=== PATIENT | male | born 1975 | race Caucasian/White ===

== ENCOUNTER 2017-06-06 14:20 | Inpatient (IN) | payer OTHER ==
--- NOTE | 2017-06-06 14:58 | ED Physician Documentation ---
PD HPI ABD PAIN - Stated complaint Stated Complaint: ABD PX - Chief complaint Chief Complaint: Abd Pain - History obtained from History obtained from: Patient, Family - History of Present Illness Timing - onset: Yesterday Timing - duration: Days (1) Timing - details: Gradual onset, Still present Quality: Sharp, Pain Location: Epigastric, Suprapubic Radiation: Chest Improved by: Laying still Worsened by: Moving, Breathing, Position, Palpation Associated symptoms: No: Fever, Nausea, Vomiting, Diarrhea, Constipation Similar symptoms before: Has not had sx before Recently seen: Not recently seen - Additional information Additional information: 42-year-old male began to have some suprapubic pain yesterday morning. Pain persisted all day and he took some Aleve with some relief of the pain. About midnight he had return of the pain which was severe and radiated up to his epigastrium. He states this happened in an episode where he had the lower pain he took the Aleve and then developed this change in the pain from the suprapubic area to the epigastric area. The pain is worse with any movement with breathing and with palpation. He has not eaten today and last ate yesterday evening . Review of Systems Constitutional: reports: Chills. denies: Fever Eyes: denies: Decreased vision Ears: denies: Ear pain Nose: denies: Congestion Throat: denies: Sore throat Cardiac: denies: Chest pain / pressure, Palpitations Respiratory: denies: Dyspnea, Cough GI: reports: Abdominal Pain. denies: Nausea, Vomiting, Constipation, Diarrhea : denies: Dysuria, Frequency Skin: denies: Rash, Lesions Musculoskeletal: denies: Neck pain, Back pain, Extremity pain Neurologic: denies: Generalized weakness, Focal weakness, Numbness PD PAST MEDICAL HISTORY - Past Medical History Past Medical History: No - Past Surgical History Past Surgical History: No - Allergies Allergies/Adverse Reactions: Allergies Allergy/AdvReac Type Severity Reaction Status Date / Time No Known Drug Allergies Allergy Verified 06/06/17 14:31 - Social History Does the pt smoke?: No Smoking Status: Never smoker PD ED PE NORMAL - Vitals Vital signs reviewed: Yes (Tachycardic tachypneic and hypertensive.) - General General: Alert and oriented X 3, Well developed/nourished, Other (The patient is grunting in pain and appears to be in pain with each breath. He is hyperventilating and moves slowly.) - HEENT HEENT: Atraumatic, PERRL, EOMI - Neck Neck: Supple, no meningeal sign - Cardiac Cardiac: No murmur, Other (tachy to 110) - Respiratory Respiratory: Clear bilaterally, Other (tachypneic at rest) - Abdomen Abdomen: Other (The abdomen is not firm. There is general tenderness to palpation and most epigastric and suprapubic. ) - Back Back: No CVA TTP, No spinal TTP - Derm Derm: Normal color, Warm and dry, No rash - Extremities Extremities: No deformity, No edema - Neuro Neuro: No motor deficit, No sensory deficit Eye Opening: Spontaneous Motor: Obeys Commands Verbal: Oriented GCS Score: 15 - Psych Psych: Normal mood, Normal affect Results - Vitals Vitals: Vital Signs - 24 hr 06/06/17 14:28 Temperature 36.6 C Heart Rate 116 H Respiratory 22 Rate Blood Pressure 155/108 H O2 Saturation 98 Oxygen O2 Source Room air - Labs Labs: Laboratory Tests 06/06/17 06/06/17 14:50 14:50 WBC 10.4 RBC 5.45 Hgb 15.6 Hct 46.9 MCV 86.0 MCH 28.6 MCHC 33.3 RDW 14.5 Plt Count 261 MPV 7.9 Neut # Not Reportable Lymph # Not Reportable Hoke # Not Reportable Eos # Not Reportable Baso # Not Reportable Absolute Nucleated RBC Not Reportable Total Counted 100 Band Neuts % (Manual) 19 H Abnorm Lymph % (Manual) 0 Nucleated RBC % Not Reportable Neutrophils # (Manual) 9.6 H Lymphocytes # (Manual) 0.7 L Monocytes # (Manual) 0.1 Eosinophils # (Manual) 0.0 Basophils # (Manual) 0.0 Differential Comment MANUAL DIFFERENTIAL Manual Slide Review Indicated Platelet Estimate NORMAL (130-450,000) Platelet Morphology NORMAL APPEARANCE RBC Morph Micro Appear NORMAL APPEARANCE Sodium 139 Potassium 3.8 Chloride 101 Carbon Dioxide 27 Anion Gap 11.0 BUN 15 Creatinine 0.9 Estimated GFR (MDRD) 92 Glucose 128 H Calcium 9.3 Total Bilirubin 1.3 H AST 27 ALT 18 Alkaline Phosphatase 47 Total Protein 8.2 Albumin 4.8 Globulin 3.4 Albumin/Globulin Ratio 1.4 Lipase 26 - Rads (name of study) CT ab/pel with Radiology: Prelim report reviewed (Impression: 1. Acute inflammation of the sigmoid colon consistent with acute diabetic colitis. Small free fluid in pelvis. No drainable abscess. 2.No bowel obstruction. 3. Tiny liver and renal hypodensities which are probably cyst.), EMP read indepedently, See rad report Procedures - Bedside sono Bedside sono by EMP: with the bedside ultrasound the morrisons pouch is evaluated and has the appearance of air between the kidney and liver. PD MEDICAL DECISION MAKING - ED course Complexity details: reviewed old records, reviewed results, re-evaluated patient , considered differential, d/w patient, d/w family ED course: 42-year-old male presents to the emergency department with acute abdominal pain. He appears to be in distress with this pain with grunting with any movement and with breathing. He arrives tachypneic tachycardic and hypertensive. He has improvement in his pain with use of intravenous Dilaudid and Zofran and he is given some fluid as well. His CT scan shows what appears to be acute diverticulitis with some free fluid in the pelvis. There is not a drainable abscess on today's exam. WBC is 10.4 with 19% bands. I recommended the patient stay in the hospital. IV cipro and flagyl are started. Departure - Departure Disposition: 66 [facility] DC/Xfmartha Clinical Impression: Diverticulitis of gastrointestinal tract
[2017-06-06 15:14] LABS: BASOPHILS % (AUTO) 0.3 %; HGB - HEMOGLOBIN 15.6 g/dL (14.0-18.0); MEAN CORPUSCULAR HEMOGLOBIN 28.6 pg (27.0-31.0); MEAN CORPUSCULAR HGB CONC 33.3 g/dL (32.0-36.0); MEAN PLATELET VOLUME 7.9 fL (7.4-11.4); MONOCYTES % (AUTO) 3.9 %; NEUTROPHILS % (AUTO) 91.8 %; PLT - PLATELET COUNT 261 10^3/uL (130-450); RED BLOOD COUNT 5.45 10^6/uL (4.70-6.10); RED CELL DISTRIBUTION WIDTH 14.5 % (12.0-15.0); WHITE BLOOD COUNT 10.4 x10^3/uL (4.8-10.8)
[2017-06-06 15:15] LABS: ABNORMAL LYMPHS % (MANUAL) 0 %
[2017-06-06] MEDS ORDERED: ONDANSETRON 4 MG/2 ML VIAL IVP STA (15:16)
[2017-06-06] MEDS ORDERED: HYDROmorphone 1 MG/ML SYRINGE IVP STA (15:16)
[2017-06-06] MEDS ORDERED: SODIUM CHLORIDE 0.9% 1,000 ML IV ONE (15:16)
[2017-06-06 15:19] LABS: ALBUMIN 4.8 g/dL (3.2-5.5); ALBUMIN/GLOBULIN RATIO 1.4 (1.0-2.2); BILIRUBIN,TOTAL 1.3 mg/dL (0.2-1.0); CALCIUM 9.3 mg/dL (8.5-10.3); CREATININE 0.9 mg/dL (0.6-1.2); TOTAL PROTEIN 8.2 g/dL (6.7-8.2)
[2017-06-06 15:33] LABS: BAND NEUTROPHILS % (MANUAL) 19 %; DIFFERENTIAL COMMENT MANUAL DIFFERENTIAL; LYMPHOCYTES # (MANUAL) 0.7 10^3/uL (1.5-3.5); LYMPHOCYTES % (MANUAL) 7 %; MONOCYTES # (MANUAL) 0.1 10^3/uL (0.0-1.0); NEUTROPHILS # (MANUAL) 9.6 10^3/uL (1.5-6.6); NEUTROPHILS % (MANUAL) 73 %; PLATELET ESTIMATE, MANUAL NORMAL (130-450,000) (NORMAL); PLATELET MORPHOLOGY NORMAL APPEARANCE (NORMAL); RBC MORPHOLOGY (MULTIPLE) NORMAL APPEARANCE (NORMAL)
[2017-06-06] MEDS ORDERED: IOPAMIDOL-300 100 ML VIAL ONE (15:47)
[2017-06-06] MEDS ORDERED: IOPAMIDOL-300 100 ML VIAL IVP ONE (16:08)
--- NOTE | 2017-06-06 16:26 | CT Report ---
EXAM: CT ABDOMEN AND PELVIS EXAM DATE: 06/06/2017 04:08 PM. CLINICAL HISTORY: Pelvic pain followed by epigastric pain . COMPARISONS: None. TECHNIQUE: Routine helical CT imaging was performed through the abdomen and pelvis. IV contrast: 100M L OF ISOVUE 300. Enteric contrast: No. Reconstructions: Coronal and sagittal. In accordance with CT protocol optimization, one or more of the following dose reduction techniques w ere utilized for this exam: automated exposure control, adjustment of mA and/or KV based on patient s ize, or use of iterative reconstructive technique. FINDINGS: Lung Bases: Unremarkable. Liver: There is a 0.7 cm low-density lesion in segment 4 of the liver which is too small to character ize. Liver vessels are patent. Gallbladder/Bile Ducts: Unremarkable. Spleen: Normal. Pancreas: Normal. Adrenal Glands: Normal. Kidneys: There is a 0.6 cm low-density lesion in the left kidney which is too small to characterize b ut most likely a cyst. Peritoneal Cavity/Bowel: There is a focal inflammatory process in the central pelvis around the sigmo id colon. There are multiple diverticula. There is a significant degree of fat stranding. There is a very small amount of fluid. There is no free air. No bowel obstruction. Pelvic Organs: Urinary bladder is empty. Vasculature: No aneurysms or other significant abnormality. Bones: There is degenerative disease of the lumbar spine. Other: None. IMPRESSION: 1. Acute inflammation of sigmoid colon consistent with acute diverticulitis. Small free fluid in pelv is. No drainable abscess. 2. No bowel obstruction. 3. Tiny liver and renal hypodensities which are probably cysts. [facility] Referring Provider Line: [phone] SITE ID: [id number]
[2017-06-06 16:49] LABS: BILIRUBIN,URINE NEGATIVE (NEGATIVE); GLUCOSE, URINE (UA) NEGATIVE (NEGATIVE); KETONES,URINE (UA) 15 mg/dL (NEGATIVE); LEUKOCYTE ESTERASE, URINE NEGATIVE (NEGATIVE); NITRITE,URINE NEGATIVE (NEGATIVE); OCCULT BLOOD,URINE MODERATE (NEGATIVE); PROTEIN,URINE 100 mg/dL (NEGATIVE); UROBILINOGEN,URINE 0.2 (NORMAL) E.U./dL (NORMAL)
[2017-06-06] MEDS ORDERED: CIPROFLOXACIN 400 MG/200 ML 200 ML IV ONE (16:50)
[2017-06-06] MEDS ORDERED: metroNIDAZOLE 500 MG/100 ML 500 MG/100 ML BAG IV ONE (16:50)
[2017-06-06 16:51] LABS: CLARITY,URINE CLEAR (CLEAR)
[2017-06-06] MEDS ORDERED: cefTRIAXone 1 GM in SODIUM CHLORIDE 0.9% MINIBAG 100 ML IV STA (16:55)
[2017-06-06 16:57] LABS: BACTERIA,URINE None Seen /HPF (None Seen); RBC,URINE 0-5 /HPF (0-5); SQUAMOUS EPITHELIAL CELL,UR NONE SEEN (<= Few)
[2017-06-06 16:58] LABS: CASTS, URINE 0-2 Fine Granular /LPF; MUCUS,URINE Marked Strands
[2017-06-06] MEDS ORDERED: ONDANSETRON 4 MG/2 ML VIAL IVP PRN (17:06)
[2017-06-06] MEDS ORDERED: PROCHLORPERAZINE 10 MG/2 ML VIAL IVP PRN (17:06)
[2017-06-06] MEDS ORDERED: PROMETHAZINE 25 MG/1 ML VIAL IM PRN (17:06)
[2017-06-06] MEDS ORDERED: HYDROmorphone 1 MG/ML SYRINGE IVP PRN (17:06)
--- NOTE | 2017-06-06 18:12 | HISTORY & PHYSICAL EXAMINATION ---
Chief Complaint - Chief Complaint Chief Complaint: Abdominal pain History of Present Illness - Admitted From Admitted From:: Emergency department - History Obtained From Records Reviewed: Yes History obtained from: Patient Exam Limitations: None - History of Present Illness HPI Comment/Other: Patient is a 42-year-old gentleman with a past medical history significant for obesity who presented to the emergency department with a chief complaint of abdominal pain. The patient states that he was in his normal state of health until just 2 days ago when he states he felt a little off. He attributed this feeling to having had a strenuous workout the day prior. He states that he did about 60 minutes on the treadmill. The next day he states he just felt sore specifically in his abdominal cord. He states that he woke up yesterday morning and then began having sharp pain in his lower pelvis. He states that the pain was severe, 8-9 out of 10. He states that it persisted into the afternoon and he took 3 Aleve. He states he did not eat any food with the Aleve and just drank water. After this he states that the pain did improve slightly. Later that evening he tried to sleep but had a very difficult time as he could just not get comfortable because of the pain. States when he got up this morning the pain spread from the lower pelvic area up into the epigastric area. He states the pain was still sharp but it felt as though his abdomen was being squeezed in a vice. He states he tried to change positions live on his back and lie on his front and even lean on the bed to try to alleviate the pain but the pain just would not go away. He states that the pain became a 10 out of 10 and he finally decided to go to the emergency department. The patient denies any nausea or vomiting. He denies having had any fevers chills or night sweats. He does admit to loose stools however he states that he is on a stool softener for edema and has had loose stools for some time. Patient denies any headaches, blurred vision, runny nose, sore throat, nasal congestion, difficulty swallowing, neck pain, neck stiffness, chest pain, shortness of air, orthopnea, PND, increased lower extremity swelling, urinary urgency, urinary frequency, dysuria, joint pains, joint stiffness, joint swelling, muscle aches, back pain, recent unintentional weight loss, changes in his appetite or any focal neurologic deficits. On presentation to the emergency department the patient was afebrile he was tachycardic and hypertensive. He was also slightly tachypneic with respiratory rate of 22 but was saturating well on room air. On presentation he appeared to be in significant distress as he was in a great deal of pain. The patient states that even on the ambulance ride over with any bumps in the road or shaking of his gurney he felt his pain would become more severe. The patient's initial lab work revealed a mildly elevated glucose of 128 and a mildly elevated total bilirubin of 1.3 but otherwise all his electrolytes and LFTs were within normal limits. The patient had a normal lipase and a normal lactic acid. The patient's CBC revealed a WBC of 10.4 with a bandemia of 19%. Given the patient's severe abdominal pain the emergency room physician ordered a CT of his abdomen and pelvis which showed acute inflammation of the sigmoid colon consistent with acute diverticulitis. With small free fluid in the pelvis but no drainable abscess. The patient also was found to have tiny liver and renal hypodensities which looked most likely like cysts. Given the severity of the patient's pain and bandemia with his tachycardia and the fact that the patient just did not look well he was admitted to the hospital for acute diverticulitis. In the emergency room the patient did receive 1 g of IV ceftriaxone, 500 mg of Flagyl, 4 mg of IV Zofran and 1 mg of IV Dilaudid. History - Past Medical History Cardiovascular: reports: None Respiratory: reports: None Neuro: reports: None Endocrine/Autoimmune: reports: None GI: reports: None : reports: None HEENT: reports: None Psych: reports: None Musculoskeletal: reports: None Derm: reports: None Other Past Medical History: Obesity - Family & Social History Family History: Mother: , Cancer (Mother of colon cancer), Father: Alive and Well, Other family: CAD (Grandmother) Living arrangement: At home Living Situation: Alone Social History Notes: The patient was born in [place], [place] but moved with his family to [place] when he was 6 years old and lived there until he was 30 when he joined the [employer]. He now lives in [place] alone. He is unmarried and has no children he still works at the [employer]. He has never smoked, he is a daily drinker and drinks 2 drinks a night of October. He denies any illicit drug use. - POLST POLST Status: Full Code Meds/Allgy - Allergies Allergies/Adverse Reactions: Allergies Allergy/AdvReac Type Severity Reaction Status Date / Time No Known Drug Allergies Allergy Verified 06/06/17 14:31 Review of Systems - Other Findings Other Findings: A comprehensive review of systems was performed the pertinent positives and negatives are stated above in the HPI and the remainder of the review of systems is negative. Exam - Vital Signs Reviewed Vital Signs: Yes Vital Signs: Vital Signs x48h Temp Pulse Resp BP Pulse Ox 06/06/17 14:28 36.6 C 116 H 22 155/108 H 98 - Physical Exam General Appearance: positive: Alert, Moderate distress (Patient grimacing with pain), Anxious (Appears anxious), Other (Obese) Eyes Bilateral: positive: Normal inspection, PERRL, EOMI, No lid inflammation, Conjunctivae nml, No scleral icterus ENT: positive: ENT inspection nml, Pharynx nml, Dry mucous membranes. negative : Purulent nasal drainage, Pharyngeal erythema, Oral lesions Neck: positive: Nml inspection, Thyroid nml, No JVD, Trachea midline. negative : Thyromegaly, Lymphadenopathy (R), Lymphadenopathy (L), Carotid bruit, Tracheal deviation Respiratory: positive: Chest non-tender, No respiratory distress, Breath sounds nml. negative: Wheezes, Rales, Rhonchi Cardiovascular: positive: No murmur, No gallop, Tachycardia Peripheral Pulses: positive: 2+ Abdomen: positive: Nml bowel sounds, No distention, Tenderness (Diffuse), Other. negative: Guarding, Rebound, Hepatomegaly Back: positive: Nml inspection. negative: CVA tenderness (R), CVA tenderness (L ) Skin: positive: Color nml, No rash, Warm. negative: Cyanosis, Diaphoresis, Pallor Extremities: positive: Non-tender, Full ROM, Nml appearance, No pedal edema Neurologic/Psychiatric: positive: Oriented x3, CN's nml (2-12), Motor nml, Sensation nml, Mood/affect nml, Other (anxious) Conclusion/Plan - Problem List (1) Sigmoid diverticulitis Conclusion/Plan: Patient presented with severe abdominal pain He was tachycardic on presentation and had bandemia on CBC of 19% The patient appeared ill on presentation and was in severe pain CT abdomen show inflammation of the sigmoid colon consistent with acute sigmoid diverticulitis Patients exam revealed a soft belly with diffuse tenderness Patient lactate is normal If the patient spikes fever then we will need to get blood cultures. Patient will need to be monitored closely given the severity of the pain as this is concerning for peritonitis or rupture of the diverticula Plan: IV ceftriaxone and IV flagyl IVFs IV antiemetics IV dilaudid for pain (2) Hyperglycemia Conclusion/Plan: Patient's blood glucose was elevated at 128 on presentation. Patient does not have any history of diabetes We will check the patient's glucose daily and check a hemoglobin A1c (3) Elevated bilirubin Conclusion/Plan: Patient's bilirubin is slightly elevated at 1.3. Rest of his electrolytes and LFTs are all within normal limits. This could be a normal variant due to Gilbert's disease. We will continue to monitor patient's LFTs daily (4) Hematuria Conclusion/Plan: Patient did have hematuria on his UA as he had positive occult blood in his urine but his RBCs were minimal at 0-5. Given the patient's recent strenuous exercise this could suggest the possibility of rhabdomyolysis. We will check a CK level Monitor hematuria. (5) Abnormal CT of the abdomen Conclusion/Plan: Patient has hypodensities of the liver and kidney on CT. These are incidental findings and radiologist believes they may be from cysts. At this time there is no need for follow-up of these incidental findings. - Lab Results Lab results reviewed: Yes Fish Bones: 06/06/17 14:50 06/06/17 14:50 Other Lab Results: Laboratory Results WBC 10.4 x10^3/uL (4.8-10.8) 06/06/17 14:50 RBC 5.45 10^6/uL (4.70-6.10) 06/06/17 14:50 Hgb 15.6 g/dL (14.0-18.0) 06/06/17 14:50 Hct 46.9 % (42.0-52.0) 06/06/17 14:50 MCV 86.0 fL (80.0-94.0) 06/06/17 14:50 MCH 28.6 pg (27.0-31.0) 06/06/17 14:50 MCHC 33.3 g/dL (32.0-36.0) 06/06/17 14:50 RDW 14.5 % (12.0-15.0) 06/06/17 14:50 Plt Count 261 10^3/uL (130-450) 06/06/17 14:50 MPV 7.9 fL (7.4-11.4) 06/06/17 14:50 Neut # Not Reportable 06/06/17 14:50 Lymph # Not Reportable 06/06/17 14:50 Sandoval # Not Reportable 06/06/17 14:50 Eos # Not Reportable 06/06/17 14:50 Baso # Not Reportable 06/06/17 14:50 Absolute Nucleated RBC Not Reportable 06/06/17 14:50 Total Counted 100 06/06/17 14:50 Band Neuts % (Manual) 19 % (0-10) H 06/06/17 14:50 Abnorm Lymph % (Manual) 0 % 06/06/17 14:50 Nucleated RBC % Not Reportable 06/06/17 14:50 Neutrophils # (Manual) 9.6 10^3/uL (1.5-6.6) H 06/06/17 14:50 Lymphocytes # (Manual) 0.7 10^3/uL (1.5-3.5) L 06/06/17 14:50 Monocytes # (Manual) 0.1 10^3/uL (0.0-1.0) 06/06/17 14:50 Eosinophils # (Manual) 0.0 10^3/uL (0-0.7) 06/06/17 14:50 Basophils # (Manual) 0.0 10^3/uL (0-0.1) 06/06/17 14:50 Differential Comment MANUAL DIFFERENTIAL 06/06/17 14:50 Manual Slide Review Indicated 06/06/17 14:50 Platelet Estimate NORMAL (130-450,000) (NORMAL) 06/06/17 14:50 Platelet Morphology NORMAL APPEARANCE (NORMAL) 06/06/17 14:50 RBC Morph Micro Appear NORMAL APPEARANCE (NORMAL) 06/06/17 14:50 Sodium 139 mmol/L (135-145) 06/06/17 14:50 Potassium 3.8 mmol/L (3.5-5.0) 06/06/17 14:50 Chloride 101 mmol/L (101-111) 06/06/17 14:50 Carbon Dioxide 27 mmol/L (21-32) 06/06/17 14:50 Anion Gap 11.0 (6-13) 06/06/17 14:50 BUN 15 mg/dL (6-20) 06/06/17 14:50 Creatinine 0.9 mg/dL (0.6-1.2) 06/06/17 14:50 Estimated GFR (MDRD) 92 (>89) 06/06/17 14:50 Glucose 128 mg/dL (70-100) H 06/06/17 14:50 Lactic Acid 0.8 mmol/L (0.5-2.2) 06/06/17 17:17 Calcium 9.3 mg/dL (8.5-10.3) 06/06/17 14:50 Total Bilirubin 1.3 mg/dL (0.2-1.0) H 06/06/17 14:50 AST 27 IU/L (10-42) 06/06/17 14:50 ALT 18 IU/L (10-60) 06/06/17 14:50 Alkaline Phosphatase 47 IU/L (42-121) 06/06/17 14:50 Total Protein 8.2 g/dL (6.7-8.2) 06/06/17 14:50 Albumin 4.8 g/dL (3.2-5.5) 06/06/17 14:50 Globulin 3.4 g/dL (2.1-4.2) 06/06/17 14:50 Albumin/Globulin Ratio 1.4 (1.0-2.2) 06/06/17 14:50 Lipase 26 U/L (22-51) 06/06/17 14:50 Urine Color YELLOW 06/06/17 16:33 Urine Clarity CLEAR (CLEAR) 06/06/17 16:33 Urine pH 6.0 PH (5.0-7.5) 06/06/17 16:33 Ur Specific [place] 1.020 (1.002-1.030) 06/06/17 16:33 Urine Protein 100 mg/dL (NEGATIVE) H 06/06/17 16:33 Urine Glucose (UA) NEGATIVE mg/dL (NEGATIVE) 06/06/17 16:33 Urine Ketones 15 mg/dL (NEGATIVE) H 06/06/17 16:33 Urine Occult Blood MODERATE (NEGATIVE) H 06/06/17 16:33 Urine Nitrite NEGATIVE (NEGATIVE) 06/06/17 16:33 Urine Bilirubin NEGATIVE (NEGATIVE) 06/06/17 16:33 Urine Urobilinogen 0.2 (NORMAL) E.U./dL (NORMAL) 06/06/17 16:33 Ur Leukocyte Esterase NEGATIVE (NEGATIVE) 06/06/17 16:33 Urine RBC 0-5 /HPF (0-5) 06/06/17 16:33 Urine WBC 0-3 /HPF (0-3) 06/06/17 16:33 Ur Squamous Epith Cells NONE SEEN (<= Few) 06/06/17 16:33 Urine Bacteria None Seen /HPF (None Seen) 06/06/17 16:33 Urine Casts 0-2 Fine Granular /LPF 06/06/17 16:33 Urine Mucus Marked Strands 06/06/17 16:33 Ur Microscopic Review INDICATED 06/06/17 16:33 Urine Culture Comments NOT INDICATED 06/06/17 16:33 - Diagnostic Imaging Results Diagnostic Imaging Results: positive: Final report reviewed Diagnostic Imaging Results Comments: CT abdomen pelvis Impression: 1. Acute inflammation of the sigmoid colon consistent with acute diverticulitis. Small free fluid in the pelvis. No drainable abscess. 2. No bowel obstruction 3. Tiny liver and renal hypodensities which are probably cysts. Core Measures - Anticipated LOS I expect patient to be DC'd or transferred within 96 hours.: Yes - DVT/VTE - Prophylaxis VTE/DVT Device ordered at admit?: Yes
[2017-06-06] MEDS: SODIUM CHLORIDE 0.9% 1,000 ML IV SCH (19:36)
[2017-06-06] MEDS: oxyCODONE 5 MG TABLET PO PRN ×2 (19:37→21:27)
[2017-06-06] MEDS: FAMOTIDINE 20 MG/50 ML 50 ML IV SCH (21:27)
[2017-06-06] MEDS: SODIUM CHLORIDE FLUSH 0.9% 10 ML SYRINGE IVP SCH (21:27)
[2017-06-06] MEDS: metroNIDAZOLE 500 MG/100 ML 500 MG/100 ML BAG IV SCH (23:41)
[2017-06-06] MEDS: ACETAMINOPHEN 325 MG TABLET PO PRN (23:50)
[2017-06-07] MEDS: oxyCODONE 5 MG TABLET PO PRN ×4 (01:42→15:57)
[2017-06-07] MEDS: SODIUM CHLORIDE 0.9% 1,000 ML IV SCH ×2 (03:31→12:22)
[2017-06-07 05:38] LABS: BASOPHILS % (AUTO) 0.3 %; EOSINOPHILS # (AUTO) 0.1 10^3/uL (0.0-0.7); EOSINOPHILS % (AUTO) 0.8 %; HGB - HEMOGLOBIN 13.1 g/dL (14.0-18.0); LYMPHOCYTES # (AUTO) 0.9 10^3/uL (1.5-3.5); LYMPHOCYTES % (AUTO) 8.7 %; MEAN CORPUSCULAR HGB CONC 33.3 g/dL (32.0-36.0); MEAN CORPUSCULAR VOLUME 87.1 fL (80.0-94.0); MEAN PLATELET VOLUME 7.5 fL (7.4-11.4); MONOCYTES # (AUTO) 0.6 10^3/uL (0.0-1.0); MONOCYTES % (AUTO) 6.5 %; NEUTROPHILS # (AUTO) 8.2 10^3/uL (1.5-6.6); NEUTROPHILS % (AUTO) 83.7 %; PLT - PLATELET COUNT 203 10^3/uL (130-450); RED BLOOD COUNT 4.52 10^6/uL (4.70-6.10); RED CELL DISTRIBUTION WIDTH 14.6 % (12.0-15.0); WHITE BLOOD COUNT 9.8 x10^3/uL (4.8-10.8)
[2017-06-07 05:45] LABS: ALBUMIN 3.4 g/dL (3.2-5.5); ALBUMIN/GLOBULIN RATIO 1.2 (1.0-2.2); BILIRUBIN,TOTAL 1.1 mg/dL (0.2-1.0); CALCIUM 7.8 mg/dL (8.5-10.3); CREATININE 0.8 mg/dL (0.6-1.2); INR 1.5 (0.8-1.2); MAGNESIUM 1.7 mg/dL (1.7-2.8); PHOSPHORUS 2.9 mg/dL (2.5-4.6); PT - PROTHROMBIN TIME 16.2 secs (9.9-12.6); TOTAL PROTEIN 6.3 g/dL (6.7-8.2)
[2017-06-07] MEDS: metroNIDAZOLE 500 MG/100 ML 500 MG/100 ML BAG IV SCH ×4 (05:56→23:51)
[2017-06-07] MEDS: SODIUM CHLORIDE FLUSH 0.9% 10 ML SYRINGE IVP SCH ×3 (07:02→20:17)
[2017-06-07 07:28] LABS: HB2 TOTAL 13.9 g/dL; HEMOGLOBIN A1C 0.43 g/dL
[2017-06-07] MEDS: POLYETHYLENE GLYCOL 3350 17 GM PACKET PO SCH (08:23)
[2017-06-07] MEDS: FAMOTIDINE 20 MG/50 ML 50 ML IV SCH (08:24)
--- NOTE | 2017-06-07 09:24 | PROVIDER PROGRESS NOTE ---
Assessment/Plan - Problem List (1) Sigmoid diverticulitis Assessment/Plan: Patient presented with severe abdominal pain He was tachycardic on presentation and had bandemia on CBC of 19% The patient appeared ill on presentation and was in severe pain CT abdomen show inflammation of the sigmoid colon consistent with acute sigmoid diverticulitis Patients exam revealed a soft belly with diffuse tenderness Patient did spike a fever last night up to 39.4 Afebrile this am and pain is improved but still has abdominal pain No nausea or vomiting Improved WBC this am Continue IV ceftriaxone and IV flagyl day 2 Stop IVF as patient is eating and drinking ok and HR is improved VSS IV dilaudid and PO exycodone for pain (2) Hyperglycemia Conclusion/Plan: Patient's blood glucose was elevated at 128 on presentation. Patient does not have any history of diabetes BG 115 this am A1C is pending LIkely increased due to acute infection (3) Elevated bilirubin Conclusion/Plan: Improved to 1.1 (4) Hematuria Conclusion/Plan: CK normal Blood but no RBCs in urine CT showed possible kidney cysts (5) Abnormal CT of the abdomen Conclusion/Plan: Patient has hypodensities of the liver and kidney on CT. These are incidental findings and radiologist believes they may be from cysts. At this time there is no need for follow-up of these incidental findings. - Current Meds Current Meds: Current Medications Generic Name Dose Route Start Last Admin Trade Name Freq PRN Reason Stop Dose Admin Acetaminophen 650 mg 06/06/17 17:06 06/06/17 23:50 Tylenol PO 650 mg Q4HR PRN Administration Pain 1 to 4 Hydromorphone HCl 0.5 mg 06/06/17 17:06 06/06/17 18:48 Dilaudid Inj Syringe IVP 0.5 mg Q2H PRN Administration Pain 8 to 10 Famotidine 50 mls @ 100 mls/hr 06/06/17 21:00 06/07/17 09:00 Pepcid 20 Mg/50 Ml IV Infused BID CRUZ Infusion Metronidazole 500 mg in 100 mls @ 100 mls/hr 06/07/17 00:00 06/07/17 07:01 Flagyl 500 Mg/100 Ml IV Infused Q6HR [facility] Infusion Sodium Chloride 1,000 mls @ 150 mls/hr 06/06/17 18:00 06/07/17 07:01 Normal Saline 0.9% IV 150 mls/hr .Q6H40M CRUZ Infusion Oxycodone HCl 5 mg 06/06/17 17:06 06/06/17 21:27 Roxicodone PO 5 mg Q4HR PRN Administration Pain 5 to 7 Oxycodone HCl 10 mg 06/06/17 17:06 06/07/17 05:54 Roxicodone PO 10 mg Q4HR PRN Administration Pain 8 to 10 Polyethylene Glycol 17 gm 06/07/17 09:00 06/07/17 08:23 Miralax PO 17 gm DAILY CRUZ Administration Sodium Chloride 10 ml 06/06/17 22:00 06/07/17 07:02 Normal Saline Flush 0.9% IVP Not Given Q8HR CRUZ - Lab Result Lab results reviewed: Yes Fish Bone Diagrams: 06/07/17 05:25 06/07/17 05:25 - Diagnostic Imaging Results Diagnostic Imaging Results: Final report reviewed - Additional Planning Condition/Complexity: Guarded My Orders: My Active Orders 06/06/17 17:06 Acetaminophen [Tylenol] 650 mg PO Q4HR PRN HYDROmorphone INJ SYRINGE [Dilaudid Inj Syringe] 0.5 mg IVP Q2H PRN Ondansetron Inj [Zofran Inj] 4 mg IVP Q6HR PRN Prochlorperazine Inj [Compazine Inj] 10 mg IVP Q6HR PRN Promethazine Inj [Phenergan Inj] 25 mg IM Q6HR PRN oxyCODONE [Roxicodone] 10 mg PO Q4HR PRN oxyCODONE [Roxicodone] 5 mg PO Q4HR PRN 06/06/17 17:09 SCDs [RC] QSHIFT 06/06/17 18:00 Sodium Chloride 0.9% [Normal Saline 0.9%] 1,000 ml IV 150 mls/hr 06/06/17 21:00 Famotidine 20 mg/50 ml [Pepcid 20 mg/50 ml] 50 ml IV BID 06/07/17 00:00 metroNIDAZOLE 500 MG/100 ML [Flagyl 500 mg/100 ml] 500 mg in 100 ml IV Q6HR 06/07/17 18:00 cefTRIAXone [Rocephin] 2 gm Sodium Chloride 0.9% Minibag [Normal Saline 0.9% Minibag] 100 ml IV Q24H 06/07/17 Breakfast Clear Liquid Diet [DIET] 06/08/17 05:00 CBC - COMP BLD CT W/AUTO DIFF [HEME] DAILYLAB COMPREHENSIVE METABOLIC PANEL [CHEM] DAILYLAB MAGNESIUM [CHEM] DAILYLAB PHOSPHORUS [CHEM] DAILYLAB 06/09/17 05:00 CBC - COMP BLD CT W/AUTO DIFF [HEME] DAILYLAB COMPREHENSIVE METABOLIC PANEL [CHEM] DAILYLAB MAGNESIUM [CHEM] DAILYLAB PHOSPHORUS [CHEM] DAILYLAB 06/10/17 05:00 CBC - COMP BLD CT W/AUTO DIFF [HEME] DAILYLAB COMPREHENSIVE METABOLIC PANEL [CHEM] DAILYLAB 06/11/17 05:00 CBC - COMP BLD CT W/AUTO DIFF [HEME] DAILYLAB COMPREHENSIVE METABOLIC PANEL [CHEM] DAILYLAB Plan Discussed with:: Patient Time Spent: 31-60 minutes Subjective - Subjective Patient Reports: Feeling Better, Abdominal Pain (Still has pain but better than yesterday), Other (Denies any nausea or vomiting, eating well. He had a fever last night but none this am.) Nursing Reports: No Complaints Objective Vital Signs: Vital Signs - 24 hr 06/06/17 06/06/17 06/07/17 19:09 23:39 07:11 Temperature 39.4 C H 37.6 C H 37.2 C Heart Rate [ 109 H 91 85 Apical] Respiratory 22 20 20 Rate Blood Pressure 124/86 H 132/81 H 104/67 [Left Brachial artery] O2 Saturation 94 95 92 Oxygen O2 Source Room air I&O (Last 24 Hrs): Intake and Output Totals x24h 06/05/17 06/06/17 06/07/17 23:59 23:59 23:59 Intake Total 1849 1916.5 Balance 1849 1916.5 General: Alert, Oriented x3, Cooperative, Other (Obese) HEENT: Atraumatic, PERRLA, EOMI, Mucous membr. moist/pink Neck: Supple, No JVD, No thyromegaly, +2 carotid pulse wo bruit, No LAD Lymphatic: no adenopathy Neuro: Alert, Non Focal, CN 2-12 Grossly Intact, Oriented Times 3 Cardiovascular: Regular rate, Normal S1, Normal S2, No murmurs Respiratory: Chest non-tender, No respiratory distress, Breath sounds nml Abdomen: Soft, Other (Tender, mostly umbilical area but also in epigastric area) Extremities: No clubbing, No cyanosis, No edema, Normal pulses Skin: No rashes, No breakdown - Results Results: Laboratory Results WBC 9.8 x10^3/uL (4.8-10.8) 06/07/17 05:25 RBC 4.52 10^6/uL (4.70-6.10) L 06/07/17 05:25 Hgb 13.1 g/dL (14.0-18.0) L 06/07/17 05:25 Hct 39.4 % (42.0-52.0) L 06/07/17 05:25 MCV 87.1 fL (80.0-94.0) 06/07/17 05:25 MCH 29.0 pg (27.0-31.0) 06/07/17 05:25 MCHC 33.3 g/dL (32.0-36.0) 06/07/17 05:25 RDW 14.6 % (12.0-15.0) 06/07/17 05:25 Plt Count 203 10^3/uL (130-450) 06/07/17 05:25 MPV 7.5 fL (7.4-11.4) 06/07/17 05:25 Neut # 8.2 10^3/uL (1.5-6.6) H 06/07/17 05:25 Lymph # 0.9 10^3/uL (1.5-3.5) L 06/07/17 05:25 [place] # 0.6 10^3/uL (0.0-1.0) 06/07/17 05:25 Eos # 0.1 10^3/uL (0.0-0.7) 06/07/17 05:25 Baso # 0.0 10^3/uL (0.0-0.1) 06/07/17 05:25 Absolute Nucleated RBC 0.00 x10^3/uL 06/07/17 05:25 Total Counted 100 06/06/17 14:50 Band Neuts % (Manual) 19 % (0-10) H 06/06/17 14:50 Abnorm Lymph % (Manual) 0 % 06/06/17 14:50 Nucleated RBC % 0.0 /100WBC 06/07/17 05:25 Neutrophils # (Manual) 9.6 10^3/uL (1.5-6.6) H 06/06/17 14:50 Lymphocytes # (Manual) 0.7 10^3/uL (1.5-3.5) L 06/06/17 14:50 Monocytes # (Manual) 0.1 10^3/uL (0.0-1.0) 06/06/17 14:50 Eosinophils # (Manual) 0.0 10^3/uL (0-0.7) 06/06/17 14:50 Basophils # (Manual) 0.0 10^3/uL (0-0.1) 06/06/17 14:50 Differential Comment MANUAL DIFFERENTIAL 06/06/17 14:50 Manual Slide Review Indicated 06/06/17 14:50 Platelet Estimate NORMAL (130-450,000) (NORMAL) 06/06/17 14:50 Platelet Morphology NORMAL APPEARANCE (NORMAL) 06/06/17 14:50 RBC Morph Micro Appear NORMAL APPEARANCE (NORMAL) 06/06/17 14:50 PT 16.2 secs (9.9-12.6) H 06/07/17 05:25 INR 1.5 (0.8-1.2) H 06/07/17 05:25 Sodium 136 mmol/L (135-145) 06/07/17 05:25 Potassium 3.8 mmol/L (3.5-5.0) 06/07/17 05:25 Chloride 104 mmol/L (101-111) 06/07/17 05:25 Carbon Dioxide 25 mmol/L (21-32) 06/07/17 05:25 Anion Gap 7.0 (6-13) 06/07/17 05:25 BUN 13 mg/dL (6-20) 06/07/17 05:25 Creatinine 0.8 mg/dL (0.6-1.2) 06/07/17 05:25 Estimated GFR (MDRD) 106 (>89) 06/07/17 05:25 Glucose 115 mg/dL (70-100) H 06/07/17 05:25 Glycated Hemoglobin 5.0 % (4.6-6.2) 06/07/17 05:25 Estim Average Glucose 97 (70-100) 06/07/17 05:25 Lactic Acid 0.7 mmol/L (0.5-2.2) 06/07/17 05:25 Calcium 7.8 mg/dL (8.5-10.3) L 06/07/17 05:25 Phosphorus 2.9 mg/dL (2.5-4.6) 06/07/17 05:25 Magnesium 1.7 mg/dL (1.7-2.8) 06/07/17 05:25 Total Bilirubin 1.1 mg/dL (0.2-1.0) H 06/07/17 05:25 AST 17 IU/L (10-42) 06/07/17 05:25 ALT 14 IU/L (10-60) 06/07/17 05:25 Alkaline Phosphatase 32 IU/L (42-121) L 06/07/17 05:25 Total Creatine Kinase 160 IU/L (22-269) 06/06/17 17:50 Total Protein 6.3 g/dL (6.7-8.2) L 06/07/17 05:25 Albumin 3.4 g/dL (3.2-5.5) 06/07/17 05:25 Globulin 2.9 g/dL (2.1-4.2) 06/07/17 05:25 Albumin/Globulin Ratio 1.2 (1.0-2.2) 06/07/17 05:25 Lipase 26 U/L (22-51) 06/06/17 14:50 Urine Color YELLOW 06/06/17 16:33 Urine Clarity CLEAR (CLEAR) 06/06/17 16:33 Urine pH 6.0 PH (5.0-7.5) 06/06/17 16:33 Ur Specific [place] 1.020 (1.002-1.030) 06/06/17 16:33 Urine Protein 100 mg/dL (NEGATIVE) H 06/06/17 16:33 Urine Glucose (UA) NEGATIVE mg/dL (NEGATIVE) 06/06/17 16:33 Urine Ketones 15 mg/dL (NEGATIVE) H 06/06/17 16:33 Urine Occult Blood MODERATE (NEGATIVE) H 06/06/17 16:33 Urine Nitrite NEGATIVE (NEGATIVE) 06/06/17 16:33 Urine Bilirubin NEGATIVE (NEGATIVE) 06/06/17 16:33 Urine Urobilinogen 0.2 (NORMAL) E.U./dL (NORMAL) 06/06/17 16:33 Ur Leukocyte Esterase NEGATIVE (NEGATIVE) 06/06/17 16:33 Urine RBC 0-5 /HPF (0-5) 06/06/17 16:33 Urine WBC 0-3 /HPF (0-3) 06/06/17 16:33 Ur Squamous Epith Cells NONE SEEN (<= Few) 06/06/17 16:33 Urine Bacteria None Seen /HPF (None Seen) 06/06/17 16:33 Urine Casts 0-2 Fine Granular /LPF 06/06/17 16:33 Urine Mucus Marked Strands 06/06/17 16:33 Ur Microscopic Review INDICATED 06/06/17 16:33 Urine Culture Comments NOT INDICATED 06/06/17 16:33
[2017-06-07] MEDS: ACETAMINOPHEN 325 MG TABLET PO PRN (15:56)
[2017-06-07] MEDS: cefTRIAXone 2 GM in SODIUM CHLORIDE 0.9% MINIBAG 100 ML IV SCH (17:19)
[2017-06-07] MEDS: SENNA 8.6 MG TABLET PO SCH (20:17)
[2017-06-07] MEDS: FAMOTIDINE 20 MG TABLET PO SCH (20:17)
[2017-06-07] MEDS: DOCUSATE SODIUM 250 MG CAPSULE PO SCH (20:17)
[2017-06-08] MEDS: ACETAMINOPHEN 325 MG TABLET PO PRN ×3 (00:02→19:42)
[2017-06-08] MEDS: oxyCODONE 5 MG TABLET PO PRN (00:02)
[2017-06-08 06:20] LABS: BASOPHILS % (AUTO) 0.2 %; EOSINOPHILS # (AUTO) 0.1 10^3/uL (0.0-0.7); EOSINOPHILS % (AUTO) 1.2 %; HGB - HEMOGLOBIN 12.4 g/dL (14.0-18.0); LYMPHOCYTES # (AUTO) 0.7 10^3/uL (1.5-3.5); LYMPHOCYTES % (AUTO) 6.5 %; MEAN CORPUSCULAR HEMOGLOBIN 28.8 pg (27.0-31.0); MEAN CORPUSCULAR HGB CONC 32.9 g/dL (32.0-36.0); MEAN CORPUSCULAR VOLUME 87.5 fL (80.0-94.0); MEAN PLATELET VOLUME 8.1 fL (7.4-11.4); MONOCYTES # (AUTO) 0.7 10^3/uL (0.0-1.0); MONOCYTES % (AUTO) 7.3 %; NEUTROPHILS # (AUTO) 8.5 10^3/uL (1.5-6.6); NEUTROPHILS % (AUTO) 84.8 %; PLT - PLATELET COUNT 196 10^3/uL (130-450); RED CELL DISTRIBUTION WIDTH 14.5 % (12.0-15.0)
[2017-06-08] MEDS: metroNIDAZOLE 500 MG/100 ML 500 MG/100 ML BAG IV SCH ×3 (06:31→17:37)
[2017-06-08] MEDS: SODIUM CHLORIDE FLUSH 0.9% 10 ML SYRINGE IVP SCH ×3 (06:31→19:42)
[2017-06-08 06:37] LABS: ALBUMIN 3.1 g/dL (3.2-5.5); BILIRUBIN,TOTAL 0.9 mg/dL (0.2-1.0); CREATININE 0.9 mg/dL (0.6-1.2); MAGNESIUM 1.8 mg/dL (1.7-2.8); PHOSPHORUS 2.4 mg/dL (2.5-4.6); TOTAL PROTEIN 6.1 g/dL (6.7-8.2)
[2017-06-08] MEDS: DOCUSATE SODIUM 250 MG CAPSULE PO SCH (08:20)
[2017-06-08] MEDS: POLYETHYLENE GLYCOL 3350 17 GM PACKET PO SCH (08:20)
[2017-06-08] MEDS: FAMOTIDINE 20 MG TABLET PO SCH ×2 (08:20→20:41)
[2017-06-08] MEDS: SENNA 8.6 MG TABLET PO SCH (08:20)
[2017-06-08] MEDS: NEUTRA-PHOS 250 MG TABLET PO SCH ×2 (11:53→17:37)
[2017-06-08] MEDS: cefTRIAXone 2 GM in SODIUM CHLORIDE 0.9% MINIBAG 100 ML IV SCH (17:37)
--- NOTE | 2017-06-08 19:49 | PROVIDER PROGRESS NOTE ---
Subjective - Prog Note Date Prog Note Date: 06/08/17 Prog Note Time: 19:48 - Subjective Pt reports feeling: Improved Subjective: He is tolerating a clear liquid diet. We have advanced him to high-fiber and he is doing okay with it. Still has an occasional twinge in his left lower quadrant especially if he moves too fast. He shares with me that he purchased himself daily with laxatives. He has been using laxatives on a daily basis for 12 years now. He was up to 380 pounds and lost 100 pounds by eating one meal a day, exercising with cardiovascular exercises 60 minutes a day. And using laxatives. He claims that he can gain 20 -40 pounds in a week and will lose them by laxative use. He feels like he retains water in his mid abdomen, but nowhere else. He has been told that physicians will not prescribe diuretics for him. He really has not had a colonoscopy, nor has he been counseled on his diet, laxative abuse, mental health, etc. Current Medications - Current Medications Current Medications: Active Medications Acetaminophen (Tylenol) 650 mg PO Q4HR PRN PRN Reason: Pain 1 to 4 Last Admin: 06/08/17 19:42 Dose: 650 mg Docusate Sodium (Colace 250mg Capsule) 250 - 500 mg PO DAILY [facility] Last Admin: 06/08/17 08:20 Dose: 500 mg Famotidine (Pepcid) 20 mg PO BID [facility] Last Admin: 06/08/17 08:20 Dose: 20 mg Hydromorphone HCl (Dilaudid Inj Syringe) 0.5 mg IVP Q2H PRN PRN Reason: Pain 8 to 10 Last Admin: 06/06/17 18:48 Dose: 0.5 mg Ceftriaxone Sodium 2 gm/ (Sodium Chloride) 100 mls @ 200 mls/hr IV Q24H [facility] Last Infusion: 06/08/17 18:20 Dose: Infused Metronidazole (Flagyl 500 Mg/100 Ml) 500 mg in 100 mls @ 100 mls/hr IV Q6HR [facility] Last Admin: 06/08/17 17:37 Dose: 100 mls/hr Ondansetron HCl (Zofran Inj) 4 mg IVP Q6HR PRN PRN Reason: Nausea / Vomiting Oxycodone HCl (Roxicodone) 5 mg PO Q4HR PRN PRN Reason: Pain 5 to 7 Last Admin: 06/08/17 00:02 Dose: 5 mg Oxycodone HCl (Roxicodone) 10 mg PO Q4HR PRN PRN Reason: Pain 8 to 10 Last Admin: 06/07/17 15:57 Dose: 10 mg Polyethylene Glycol (Miralax) 17 gm PO DAILY [facility] Last Admin: 06/08/17 08:20 Dose: 17 gm Prochlorperazine Edisylate (Compazine Inj) 10 mg IVP Q6HR PRN PRN Reason: Nausea / Vomiting Promethazine HCl (Phenergan Inj) 25 mg IM Q6HR PRN PRN Reason: Nausea / Vomiting Senna (Senokot) 8.6 - 17.2 mg PO DAILY [facility] Last Admin: 06/08/17 08:20 Dose: 17.2 mg Sodium Chloride (Normal Saline Flush 0.9%) 10 ml IVP PRN PRN PRN Reason: NEEDED PER PROVIDER ORDERS Sodium Chloride (Normal Saline Flush 0.9%) 10 ml IVP Q8HR [facility] Last Admin: 06/08/17 19:42 Dose: 10 ml Sodium Phosphate (K-Phos Neutral) 250 mg PO TIDWM [facility] Last Admin: 06/08/17 17:37 Dose: 250 mg Bisacodyl [Dulcolax] 10 mg PO BID 06/07/17 Gluc/Oli-MSM#1/Vit C/Bhavesh/Bor [Pjyuqsd-Lpkhk-ZBU Complex Cplt] 1 - 2 each PO BID 06/07/17 Multivitamin,Therapeutic [Thera] 1 each PO DAILY 06/07/17 Objective - Vital Signs/Intake & Output Reviewed Vital Signs: Yes Vital Signs: Vital Signs x48h Temp Pulse Resp BP Pulse Ox 06/08/17 15:55 37.4 C 99 18 121/81 H 95 Intake & Output: Intake & Output 06/05/17 06/06/17 06/07/17 06/08/17 23:59 23:59 23:59 23:59 Intake Total 1850 3636.0 3150 Output Total 350 650 Balance 1850 3286.0 2500 - Objective General Appearance: positive: No acute distress, Alert, Other (Tall anxious 39- year-old white male, close shave scalp, glasses, ambulating in the hallway with slight wincing and grimacing of pain) Eyes Bilateral: positive: PERRL, EOMI ENT: positive: Pharynx nml Neck: positive: No JVD. negative: Stiff neck Respiratory: positive: Chest non-tender. negative: Wheezes, Rales, Rhonchi Cardiovascular: positive: Regular rate & rhythm. negative: Tachycardia, Systolic murmur, Gallop/S4, Friction rub Abdomen: positive: No organomegaly, Nml bowel sounds, No distention, Tenderness (Left lower quadrant). negative: Guarding, Rebound Skin: positive: Warm, Dry Extremities: positive: Non-tender, Full ROM, No pedal edema Neurologic/Psychiatric: positive: Oriented x3, CN's nml (2-12), Motor nml - Lab Results Fish Bones: 06/09/17 04:34 06/09/17 04:34 Other Labs: Lab Results x24hrs 06/08/17 06/08/17 Range/Units 05:29 05:29 WBC 10.0 (4.8-10.8) x10^3/uL RBC 4.30 L (4.70-6.10) 10^6/uL Hgb 12.4 L (14.0-18.0) g/dL Hct 37.7 L (42.0-52.0) % MCV 87.5 (80.0-94.0) fL MCH 28.8 (27.0-31.0) pg MCHC 32.9 (32.0-36.0) g/dL RDW 14.5 (12.0-15.0) % Plt Count 196 (130-450) 10^3/uL MPV 8.1 (7.4-11.4) fL Neut # 8.5 H (1.5-6.6) 10^3/uL Lymph # 0.7 L (1.5-3.5) 10^3/uL [place] # 0.7 (0.0-1.0) 10^3/uL Eos # 0.1 (0.0-0.7) 10^3/uL Baso # 0.0 (0.0-0.1) 10^3/uL Absolute Nucleated RBC 0.01 x10^3/uL Nucleated RBC % 0.1 /100WBC Sodium 135 (135-145) mmol/L Potassium 3.4 L (3.5-5.0) mmol/L Chloride 98 L (101-111) mmol/L Carbon Dioxide 29 (21-32) mmol/L Anion Gap 8.0 (6-13) BUN 9 (6-20) mg/dL Creatinine 0.9 (0.6-1.2) mg/dL Estimated GFR (MDRD) 92 (>89) Glucose 100 (70-100) mg/dL Calcium 8.0 L (8.5-10.3) mg/dL Phosphorus 2.4 L (2.5-4.6) mg/dL Magnesium 1.8 (1.7-2.8) mg/dL Total Bilirubin 0.9 (0.2-1.0) mg/dL AST 14 (10-42) IU/L ALT 11 (10-60) IU/L Alkaline Phosphatase 42 (42-121) IU/L Total Protein 6.1 L (6.7-8.2) g/dL Albumin 3.1 L (3.2-5.5) g/dL Globulin 3.0 (2.1-4.2) g/dL Albumin/Globulin Ratio 1.0 (1.0-2.2) Assessment/Plan - Problem List (1) Diverticulitis of gastrointestinal tract Impression: fever to 38 last night, no WBC and mild pain anxious Day #2 ceftriaxone and flagyl. advance diet and continue daily abd exam (2) Laxative abuse Impression: strongly counselled about steaming cabinet tender damage and side effects. advised to stop. seek GI care for scope and motility studies. (3) Eating disorder Impression: advised to seek counselling.
[2017-06-09] MEDS: oxyCODONE 5 MG TABLET PO PRN ×4 (00:13→22:15)
[2017-06-09] MEDS: SODIUM CHLORIDE FLUSH 0.9% 10 ML SYRINGE IVP PRN ×4 (00:14→12:08)
[2017-06-09] MEDS: metroNIDAZOLE 500 MG/100 ML 500 MG/100 ML BAG IV SCH ×4 (00:14→17:52)
[2017-06-09 04:59] LABS: BASOPHILS % (AUTO) 0.6 %; EOSINOPHILS # (AUTO) 0.1 10^3/uL (0.0-0.7); EOSINOPHILS % (AUTO) 1.8 %; LYMPHOCYTES # (AUTO) 0.9 10^3/uL (1.5-3.5); LYMPHOCYTES % (AUTO) 10.9 %; MEAN CORPUSCULAR HEMOGLOBIN 28.7 pg (27.0-31.0); MEAN CORPUSCULAR HGB CONC 33.4 g/dL (32.0-36.0); MEAN CORPUSCULAR VOLUME 85.7 fL (80.0-94.0); MEAN PLATELET VOLUME 7.7 fL (7.4-11.4); MONOCYTES # (AUTO) 0.7 10^3/uL (0.0-1.0); MONOCYTES % (AUTO) 8.6 %; NEUTROPHILS # (AUTO) 6.4 10^3/uL (1.5-6.6); NEUTROPHILS % (AUTO) 78.1 %; PLT - PLATELET COUNT 196 10^3/uL (130-450); RED BLOOD COUNT 4.19 10^6/uL (4.70-6.10); RED CELL DISTRIBUTION WIDTH 14.5 % (12.0-15.0); WHITE BLOOD COUNT 8.2 x10^3/uL (4.8-10.8)
[2017-06-09 05:04] LABS: ALBUMIN 2.9 g/dL (3.2-5.5); ALBUMIN/GLOBULIN RATIO 0.9 (1.0-2.2); BILIRUBIN,TOTAL 0.6 mg/dL (0.2-1.0); CALCIUM 8.3 mg/dL (8.5-10.3); CREATININE 0.8 mg/dL (0.6-1.2); MAGNESIUM 1.9 mg/dL (1.7-2.8); PHOSPHORUS 3.2 mg/dL (2.5-4.6); TOTAL PROTEIN 6.3 g/dL (6.7-8.2)
[2017-06-09] MEDS: SODIUM CHLORIDE FLUSH 0.9% 10 ML SYRINGE IVP SCH ×3 (06:08→22:16)
[2017-06-09] MEDS: FAMOTIDINE 20 MG TABLET PO SCH ×2 (08:07→22:16)
[2017-06-09] MEDS: NEUTRA-PHOS 250 MG TABLET PO SCH ×3 (08:07→17:22)
[2017-06-09] MEDS: POLYETHYLENE GLYCOL 3350 17 GM PACKET PO SCH (08:08)
[2017-06-09] MEDS: SENNA 8.6 MG TABLET PO SCH (08:08)
[2017-06-09] MEDS: DOCUSATE SODIUM 250 MG CAPSULE PO SCH (08:08)
[2017-06-09] MEDS ORDERED: IOPAMIDOL-300 100 ML VIAL ONE (13:46)
[2017-06-09] MEDS ORDERED: IOPAMIDOL-300 50 ML VIAL ONE (13:46)
[2017-06-09] MEDS ORDERED: IOPAMIDOL-300 100 ML VIAL IVP ONE (15:23)
[2017-06-09] MEDS ORDERED: IOPAMIDOL-300 50 ML VIAL PO ONE (15:23)
--- NOTE | 2017-06-09 16:39 | CT Report ---
DATE OF SERVICE: CT ABDOMEN AND PELVIS WITH CONTRAST: 06/09/2017 CLINICAL INDICATION: Followup diverticulitis, continued fevers TECHNIQUE: Axial CT images of the abdomen and pelvis were obtained with 100 mL Isovue 300 intravenously as well as oral contrast. COMPARISON: CT of 06/06/2017. FINDINGS: Limited evaluation of the lung bases demonstrates a trace right effusion and bibasilar infiltrates or atelectasis. ABDOMEN: Liver, spleen, pancreas, kidneys and adrenal glands appear unremarkable. The gallbladder is not dilated. No bowel dilatation, free gas, or free fluid is present in the abdomen. No definite adenopathy. PELVIS: A small amount of free fluid is present in the pelvis. There are new small foci of extraluminal gas around the mid sigmoid colon anteriorly and superiorly as it passes over the urinary bladder, compatible with localized perforation. Inflammation in this region appears similar to previous. No drainable abscess collection is appreciated. Osseous structures demonstrate degenerative changes. IMPRESSION: LOCALIZED PERFORATION AROUND THE MID SIGMOID COLON. NO DRAINABLE ABSCESS COLLECTION. In accordance with CT protocol optimization, one or more of the following dose reduction techniques were utilized for this exam: automated exposure control, adjustment of mA and/or KV based on patient size, or use of iterative reconstructive technique. TD: 06/09/2017 17:38
--- NOTE | 2017-06-09 16:51 | PROVIDER PROGRESS NOTE ---
Subjective - Prog Note Date Prog Note Date: 06/09/17 Prog Note Time: 16:51 - Subjective Pt reports feeling: Worse Subjective: although he's been eating, walking, his LLQ hurts more. not sharp or stabbing but higher intensity. Liquid stool for BM, no blood. Had a fever last night and it was reported with RN sign off but no documentation under vitals. he denies cp, sob. no leg edema or calf pain Current Medications - Current Medications Current Medications: Active Medications Acetaminophen (Tylenol) 650 mg PO Q4HR PRN PRN Reason: Pain 1 to 4 Last Admin: 06/08/17 19:42 Dose: 650 mg Docusate Sodium (Colace 250mg Capsule) 250 - 500 mg PO DAILY [facility] Last Admin: 06/09/17 08:08 Dose: Not Given Famotidine (Pepcid) 20 mg PO BID [facility] Last Admin: 06/09/17 08:07 Dose: 20 mg Hydromorphone HCl (Dilaudid Inj Syringe) 0.5 mg IVP Q2H PRN PRN Reason: Pain 8 to 10 Last Admin: 06/06/17 18:48 Dose: 0.5 mg Ceftriaxone Sodium 2 gm/ (Sodium Chloride) 100 mls @ 200 mls/hr IV Q24H [facility] Last Infusion: 06/08/17 18:20 Dose: Infused Metronidazole (Flagyl 500 Mg/100 Ml) 500 mg in 100 mls @ 100 mls/hr IV Q6HR [facility] Last Infusion: 06/09/17 13:19 Dose: Infused Ondansetron HCl (Zofran Inj) 4 mg IVP Q6HR PRN PRN Reason: Nausea / Vomiting Oxycodone HCl (Roxicodone) 5 mg PO Q4HR PRN PRN Reason: Pain 5 to 7 Last Admin: 06/09/17 16:01 Dose: 5 mg Oxycodone HCl (Roxicodone) 10 mg PO Q4HR PRN PRN Reason: Pain 8 to 10 Last Admin: 06/07/17 15:57 Dose: 10 mg Polyethylene Glycol (Miralax) 17 gm PO DAILY [facility] Last Admin: 06/09/17 08:08 Dose: Not Given Prochlorperazine Edisylate (Compazine Inj) 10 mg IVP Q6HR PRN PRN Reason: Nausea / Vomiting Promethazine HCl (Phenergan Inj) 25 mg IM Q6HR PRN PRN Reason: Nausea / Vomiting Senna (Senokot) 8.6 - 17.2 mg PO DAILY [facility] Last Admin: 06/09/17 08:08 Dose: Not Given Sodium Chloride (Normal Saline Flush 0.9%) 10 ml IVP PRN PRN PRN Reason: NEEDED PER PROVIDER ORDERS Last Admin: 06/09/17 12:08 Dose: 10 ml Sodium Chloride (Normal Saline Flush 0.9%) 10 ml IVP Q8HR [facility] Last Admin: 06/09/17 13:18 Dose: 10 ml Sodium Phosphate (K-Phos Neutral) 250 mg PO TIDWM [facility] Last Admin: 06/09/17 12:08 Dose: Not Given Bisacodyl [Dulcolax] 10 mg PO BID 06/07/17 Gluc/Oli-MSM#1/Vit C/Bhavesh/Bor [Kmmgczt-Ykrxz-EUB Complex Cplt] 1 - 2 each PO BID 06/07/17 Multivitamin,Therapeutic [Thera] 1 each PO DAILY 06/07/17 Objective - Vital Signs/Intake & Output Reviewed Vital Signs: Yes Vital Signs: Vital Signs x48h Temp Pulse Resp BP Pulse Ox 06/09/17 15:28 37.7 C H 87 18 129/83 H 98 Intake & Output: Intake & Output 06/06/17 06/07/17 06/08/17 06/09/17 23:59 23:59 23:59 23:59 Intake Total 1850 3636.0 3250 1540 Output Total 350 650 Balance 1850 3286.0 2600 1540 - Objective General Appearance: positive: No acute distress, Alert, Other (middle aged white male with glasses, shaved head for hair cut) Eyes Bilateral: positive: PERRL, EOMI ENT: positive: Pharynx nml Neck: positive: No JVD. negative: Stiff neck, Carotid bruit Respiratory: positive: Chest non-tender, No respiratory distress. negative: Wheezes, Rales, Rhonchi Cardiovascular: positive: Regular rate & rhythm. negative: Systolic murmur, Gallop/S4, Friction rub Abdomen: positive: No organomegaly, Nml bowel sounds, No distention, Tenderness (LLQ), Other (uncomfortable but not severe). negative: Guarding, Rebound Skin: positive: Warm, Dry Extremities: positive: Full ROM, No pedal edema Neurologic/Psychiatric: positive: Oriented x3, CN's nml (2-12), Motor nml - Lab Results Fish Bones: 06/09/17 04:34 06/09/17 04:34 Other Labs: Lab Results x24hrs 06/09/17 06/09/17 Range/Units 04:34 04:34 WBC 8.2 (4.8-10.8) x10^3/uL RBC 4.19 L (4.70-6.10) 10^6/uL Hgb 12.0 L (14.0-18.0) g/dL Hct 35.9 L (42.0-52.0) % MCV 85.7 (80.0-94.0) fL MCH 28.7 (27.0-31.0) pg MCHC 33.4 (32.0-36.0) g/dL RDW 14.5 (12.0-15.0) % Plt Count 196 (130-450) 10^3/uL MPV 7.7 (7.4-11.4) fL Neut # 6.4 (1.5-6.6) 10^3/uL Lymph # 0.9 L (1.5-3.5) 10^3/uL [place] # 0.7 (0.0-1.0) 10^3/uL Eos # 0.1 (0.0-0.7) 10^3/uL Baso # 0.0 (0.0-0.1) 10^3/uL Absolute Nucleated RBC 0.00 x10^3/uL Nucleated RBC % 0.0 /100WBC Sodium 139 (135-145) mmol/L Potassium 3.5 (3.5-5.0) mmol/L Chloride 100 L (101-111) mmol/L Carbon Dioxide 25 (21-32) mmol/L Anion Gap 14.0 H (6-13) BUN 10 (6-20) mg/dL Creatinine 0.8 (0.6-1.2) mg/dL Estimated GFR (MDRD) 106 (>89) Glucose 101 H (70-100) mg/dL Calcium 8.3 L (8.5-10.3) mg/dL Phosphorus 3.2 (2.5-4.6) mg/dL Magnesium 1.9 (1.7-2.8) mg/dL Total Bilirubin 0.6 (0.2-1.0) mg/dL AST 21 (10-42) IU/L ALT 16 (10-60) IU/L Alkaline Phosphatase 82 (42-121) IU/L Total Protein 6.3 L (6.7-8.2) g/dL Albumin 2.9 L (3.2-5.5) g/dL Globulin 3.4 (2.1-4.2) g/dL Albumin/Globulin Ratio 0.9 L (1.0-2.2) Assessment/Plan - Problem List (1) Diverticulitis of gastrointestinal tract Impression: still with intermittent fevers. WBC nml. CT scan ordered and reviewed. "localized perforation with small foci of free air superior and anterior to sigmoid colon. Stable inflammation and free fluid." overall slightly worse than on admission. Plan: regress to clear liquids continue IV abx.
[2017-06-09] MEDS: cefTRIAXone 2 GM in SODIUM CHLORIDE 0.9% MINIBAG 100 ML IV SCH (17:10)
[2017-06-10] MEDS: metroNIDAZOLE 500 MG/100 ML 500 MG/100 ML BAG IV SCH ×4 (01:14→17:41)
[2017-06-10] MEDS: ACETAMINOPHEN 325 MG TABLET PO PRN ×2 (01:14→16:57)
[2017-06-10 05:15] LABS: BASOPHILS % (AUTO) 0.2 %; EOSINOPHILS # (AUTO) 0.2 10^3/uL (0.0-0.7); EOSINOPHILS % (AUTO) 1.9 %; HGB - HEMOGLOBIN 12.4 g/dL (14.0-18.0); LYMPHOCYTES # (AUTO) 1.1 10^3/uL (1.5-3.5); LYMPHOCYTES % (AUTO) 13.3 %; MEAN CORPUSCULAR HEMOGLOBIN 28.9 pg (27.0-31.0); MEAN CORPUSCULAR HGB CONC 33.6 g/dL (32.0-36.0); MEAN PLATELET VOLUME 7.7 fL (7.4-11.4); MONOCYTES # (AUTO) 1.1 10^3/uL (0.0-1.0); MONOCYTES % (AUTO) 13.4 %; NEUTROPHILS # (AUTO) 6.1 10^3/uL (1.5-6.6); NEUTROPHILS % (AUTO) 71.2 %; PLT - PLATELET COUNT 211 10^3/uL (130-450); RED CELL DISTRIBUTION WIDTH 14.5 % (12.0-15.0); WHITE BLOOD COUNT 8.5 x10^3/uL (4.8-10.8)
[2017-06-10 05:17] LABS: ALBUMIN/GLOBULIN RATIO 0.9 (1.0-2.2); CALCIUM 8.1 mg/dL (8.5-10.3); CREATININE 0.8 mg/dL (0.6-1.2); TOTAL PROTEIN 6.5 g/dL (6.7-8.2)
[2017-06-10] MEDS: SODIUM CHLORIDE FLUSH 0.9% 10 ML SYRINGE IVP SCH ×3 (06:32→21:00)
[2017-06-10] MEDS: SODIUM CHLORIDE FLUSH 0.9% 10 ML SYRINGE IVP PRN (06:33)
[2017-06-10] MEDS: oxyCODONE 5 MG TABLET PO PRN ×4 (06:42→21:00)
--- NOTE | 2017-06-10 08:42 | PROVIDER PROGRESS NOTE ---
Subjective - Prog Note Date Prog Note Date: 06/10/17 Prog Note Time: 08:42 - Subjective Pt reports feeling: No change Subjective: he's worried he's going to pain in LLQ same diarrhea no blood in stool no fever no chills. Current Medications - Current Medications Current Medications: Active Medications Acetaminophen (Tylenol) 650 mg PO Q4HR PRN PRN Reason: Pain 1 to 4 Last Admin: 06/10/17 16:57 Dose: 650 mg Docusate Sodium (Colace 250mg Capsule) 250 - 500 mg PO DAILY [facility] Last Admin: 06/10/17 09:19 Dose: Not Given Famotidine (Pepcid) 20 mg PO BID [facility] Last Admin: 06/10/17 09:18 Dose: 20 mg Hydromorphone HCl (Dilaudid Inj Syringe) 0.5 mg IVP Q2H PRN PRN Reason: Pain 8 to 10 Last Admin: 06/06/17 18:48 Dose: 0.5 mg Ceftriaxone Sodium 2 gm/ (Sodium Chloride) 100 mls @ 200 mls/hr IV Q24H [facility] Last Infusion: 06/10/17 18:15 Dose: Infused Metronidazole (Flagyl 500 Mg/100 Ml) 500 mg in 100 mls @ 100 mls/hr IV Q6HR [facility] Last Infusion: 06/10/17 18:45 Dose: Infused Ondansetron HCl (Zofran Inj) 4 mg IVP Q6HR PRN PRN Reason: Nausea / Vomiting Oxycodone HCl (Roxicodone) 5 mg PO Q4HR PRN PRN Reason: Pain 5 to 7 Last Admin: 06/10/17 16:55 Dose: 5 mg Oxycodone HCl (Roxicodone) 10 mg PO Q4HR PRN PRN Reason: Pain 8 to 10 Last Admin: 06/09/17 22:15 Dose: 10 mg Polyethylene Glycol (Miralax) 17 gm PO DAILY [facility] Last Admin: 06/10/17 09:19 Dose: Not Given Prochlorperazine Edisylate (Compazine Inj) 10 mg IVP Q6HR PRN PRN Reason: Nausea / Vomiting Promethazine HCl (Phenergan Inj) 25 mg IM Q6HR PRN PRN Reason: Nausea / Vomiting Senna (Senokot) 8.6 - 17.2 mg PO DAILY [facility] Last Admin: 06/10/17 09:19 Dose: Not Given Sodium Chloride (Normal Saline Flush 0.9%) 10 ml IVP PRN PRN PRN Reason: NEEDED PER PROVIDER ORDERS Last Admin: 06/10/17 06:33 Dose: 10 ml Sodium Chloride (Normal Saline Flush 0.9%) 10 ml IVP Q8HR [facility] Last Admin: 06/10/17 13:32 Dose: Not Given Sodium Phosphate (K-Phos Neutral) 250 mg PO TIDWM [facility] Last Admin: 06/10/17 17:01 Dose: 250 mg Bisacodyl [Dulcolax] 10 mg PO BID 06/07/17 Gluc/Oli-MSM#1/Vit C/Bhavesh/Bor [Grxtohu-Ldebn-OIW Complex Cplt] 1 - 2 each PO BID 06/07/17 Multivitamin,Therapeutic [Thera] 1 each PO DAILY 06/07/17 Objective - Vital Signs/Intake & Output Reviewed Vital Signs: Yes Vital Signs: Vital Signs x48h Temp Pulse Resp BP Pulse Ox 06/10/17 08:11 37.4 C 82 16 122/69 94 06/10/17 00:57 37.3 C 85 18 124/74 93 Intake & Output: Intake & Output 06/07/17 06/08/17 06/09/17 06/10/17 23:59 23:59 23:59 23:59 Intake Total 3636.0 3250 1940 450 Output Total 350 650 Balance 3286.0 2600 1940 450 - Objective General Appearance: positive: No acute distress, Alert, Other (tall white male looks stated age, crying with fear. "who's going to take care of my dad") Eyes Bilateral: positive: PERRL ENT: positive: Pharynx nml Neck: positive: No JVD. negative: Stiff neck, Carotid bruit Respiratory: positive: Chest non-tender. negative: Wheezes, Rales, Rhonchi Cardiovascular: positive: Regular rate & rhythm. negative: Gallop/S4, Friction rub Abdomen: positive: No organomegaly, Nml bowel sounds, No distention, Tenderness (but no worse than last 2 days). negative: Guarding, Rebound Skin: positive: Warm, Dry Extremities: positive: Non-tender, No pedal edema Neurologic/Psychiatric: positive: Oriented x3, CN's nml (2-12), Motor nml - Lab Results Fish Bones: 06/10/17 04:35 06/10/17 04:35 Other Labs: Lab Results x24hrs 06/10/17 06/10/17 Range/Units 04:35 04:35 WBC 8.5 (4.8-10.8) x10^3/uL RBC 4.30 L (4.70-6.10) 10^6/uL Hgb 12.4 L (14.0-18.0) g/dL Hct 37.0 L (42.0-52.0) % MCV 86.0 (80.0-94.0) fL MCH 28.9 (27.0-31.0) pg MCHC 33.6 (32.0-36.0) g/dL RDW 14.5 (12.0-15.0) % Plt Count 211 (130-450) 10^3/uL MPV 7.7 (7.4-11.4) fL Neut # 6.1 (1.5-6.6) 10^3/uL Lymph # 1.1 L (1.5-3.5) 10^3/uL [place] # 1.1 H (0.0-1.0) 10^3/uL Eos # 0.2 (0.0-0.7) 10^3/uL Baso # 0.0 (0.0-0.1) 10^3/uL Absolute Nucleated RBC 0.02 x10^3/uL Nucleated RBC % 0.2 /100WBC Sodium 137 (135-145) mmol/L Potassium 2.9 L (3.5-5.0) mmol/L Chloride 100 L (101-111) mmol/L Carbon Dioxide 29 (21-32) mmol/L Anion Gap 8.0 (6-13) BUN 10 (6-20) mg/dL Creatinine 0.8 (0.6-1.2) mg/dL Estimated GFR (MDRD) 106 (>89) Glucose 96 (70-100) mg/dL Calcium 8.1 L (8.5-10.3) mg/dL Total Bilirubin 1.0 (0.2-1.0) mg/dL AST 16 (10-42) IU/L ALT 12 (10-60) IU/L Alkaline Phosphatase 71 (42-121) IU/L Total Protein 6.5 L (6.7-8.2) g/dL Albumin 3.0 L (3.2-5.5) g/dL Globulin 3.5 (2.1-4.2) g/dL Albumin/Globulin Ratio 0.9 L (1.0-2.2) Assessment/Plan - Problem List (1) Diverticulitis of gastrointestinal tract Impression: the patient will be here greater than the 96 hours attested to on admission. he has not responded in expected time frame and will need 3-4 more days of IV abx with CT to be done 06/12 to establish if developing an abcess or if responding. he will be continued on IV abx. Surgery consult to be done 06/12 if not improved. stop laxatives he is already walking several times a day and encouraged to continue. (2) Fear associated with illness and body function Impression: I've reassured him that while there a no guarantees, I have no expectation that he's going to . he has a treatable problem and there are no other organs involved.
[2017-06-10] MEDS: FAMOTIDINE 20 MG TABLET PO SCH ×2 (09:18→21:00)
[2017-06-10] MEDS: NEUTRA-PHOS 250 MG TABLET PO SCH ×3 (09:19→17:01)
[2017-06-10] MEDS: SENNA 8.6 MG TABLET PO SCH (09:19)
[2017-06-10] MEDS: DOCUSATE SODIUM 250 MG CAPSULE PO SCH (09:19)
[2017-06-10] MEDS: POLYETHYLENE GLYCOL 3350 17 GM PACKET PO SCH (09:19)
[2017-06-10] MEDS ORDERED: POTASSIUM CHLORIDE INJ 40 MEQ in SODIUM CHLORIDE 0.9% 480 ML IV ONE (09:30)
[2017-06-10] MEDS: cefTRIAXone 2 GM in SODIUM CHLORIDE 0.9% MINIBAG 100 ML IV SCH (16:59)
[2017-06-11] MEDS: SODIUM CHLORIDE FLUSH 0.9% 10 ML SYRINGE IVP SCH ×4 (00:44→21:25)
[2017-06-11] MEDS: metroNIDAZOLE 500 MG/100 ML 500 MG/100 ML BAG IV SCH ×4 (00:44→19:45)
[2017-06-11] MEDS: oxyCODONE 5 MG TABLET PO PRN ×5 (00:57→20:28)
[2017-06-11 05:07] LABS: BASOPHILS # (AUTO) 0.1 10^3/uL (0.0-0.1); BASOPHILS % (AUTO) 0.6 %; EOSINOPHILS # (AUTO) 0.2 10^3/uL (0.0-0.7); HGB - HEMOGLOBIN 12.6 g/dL (14.0-18.0); LYMPHOCYTES # (AUTO) 1.3 10^3/uL (1.5-3.5); LYMPHOCYTES % (AUTO) 16.1 %; MEAN CORPUSCULAR HEMOGLOBIN 28.5 pg (27.0-31.0); MEAN CORPUSCULAR HGB CONC 33.4 g/dL (32.0-36.0); MEAN CORPUSCULAR VOLUME 85.5 fL (80.0-94.0); MEAN PLATELET VOLUME 7.5 fL (7.4-11.4); MONOCYTES % (AUTO) 13.1 %; NEUTROPHILS # (AUTO) 5.4 10^3/uL (1.5-6.6); NEUTROPHILS % (AUTO) 68.2 %; PLT - PLATELET COUNT 242 10^3/uL (130-450); RED BLOOD COUNT 4.42 10^6/uL (4.70-6.10); RED CELL DISTRIBUTION WIDTH 14.9 % (12.0-15.0)
[2017-06-11 05:13] LABS: ALBUMIN 3.1 g/dL (3.2-5.5); ALBUMIN/GLOBULIN RATIO 0.9 (1.0-2.2); BILIRUBIN,TOTAL 0.5 mg/dL (0.2-1.0); CALCIUM 8.3 mg/dL (8.5-10.3); CREATININE 0.7 mg/dL (0.6-1.2); TOTAL PROTEIN 6.4 g/dL (6.7-8.2)
[2017-06-11] MEDS: POLYETHYLENE GLYCOL 3350 17 GM PACKET PO SCH (07:36)
[2017-06-11] MEDS: DOCUSATE SODIUM 250 MG CAPSULE PO SCH (07:36)
[2017-06-11] MEDS: SENNA 8.6 MG TABLET PO SCH (07:37)
[2017-06-11] MEDS: NEUTRA-PHOS 250 MG TABLET PO SCH ×3 (08:31→17:36)
[2017-06-11] MEDS: FAMOTIDINE 20 MG TABLET PO SCH ×2 (08:31→20:28)
--- NOTE | 2017-06-11 11:35 | PROVIDER PROGRESS NOTE ---
Subjective - Prog Note Date Prog Note Date: 06/11/17 Prog Note Time: 11:33 - Subjective Subjective: he continues to be worried about weight gain. He feels he can gain 20-40 pounds in water weight in a week and feels it's happening now. At home he uses laxatives for this and does CV exercise up to 60 minutes a day with one meal a day. still with mild and occ sharp mod LLQ pain. (+) stool and flatus. (-) blood in stool. Current Medications - Current Medications Current Medications: Active Medications Acetaminophen (Tylenol) 650 mg PO Q4HR PRN PRN Reason: Pain 1 to 4 Last Admin: 06/10/17 16:57 Dose: 650 mg Docusate Sodium (Colace 250mg Capsule) 250 - 500 mg PO DAILY [facility] Last Admin: 06/11/17 07:36 Dose: Not Given Famotidine (Pepcid) 20 mg PO BID [facility] Last Admin: 06/11/17 08:31 Dose: 20 mg Hydromorphone HCl (Dilaudid Inj Syringe) 0.5 mg IVP Q2H PRN PRN Reason: Pain 8 to 10 Last Admin: 06/06/17 18:48 Dose: 0.5 mg Ceftriaxone Sodium 2 gm/ (Sodium Chloride) 100 mls @ 200 mls/hr IV Q24H [facility] Last Infusion: 06/10/17 18:15 Dose: Infused Metronidazole (Flagyl 500 Mg/100 Ml) 500 mg in 100 mls @ 100 mls/hr IV Q6HR [facility] Last Infusion: 06/11/17 07:30 Dose: Infused Potassium Chloride (Potassium Chloride) 10 meq in 100 mls @ 100 mls/hr IV Q1H [facility] Stop: 06/11/17 15:59 Ondansetron HCl (Zofran Inj) 4 mg IVP Q6HR PRN PRN Reason: Nausea / Vomiting Oxycodone HCl (Roxicodone) 5 mg PO Q4HR PRN PRN Reason: Pain 5 to 7 Last Admin: 06/11/17 00:57 Dose: 5 mg Oxycodone HCl (Roxicodone) 10 mg PO Q4HR PRN PRN Reason: Pain 8 to 10 Last Admin: 06/11/17 06:39 Dose: 10 mg Polyethylene Glycol (Miralax) 17 gm PO DAILY [facility] Last Admin: 06/11/17 07:36 Dose: Not Given Prochlorperazine Edisylate (Compazine Inj) 10 mg IVP Q6HR PRN PRN Reason: Nausea / Vomiting Promethazine HCl (Phenergan Inj) 25 mg IM Q6HR PRN PRN Reason: Nausea / Vomiting Senna (Senokot) 8.6 - 17.2 mg PO DAILY [facility] Last Admin: 06/11/17 07:37 Dose: Not Given Sodium Chloride (Normal Saline Flush 0.9%) 10 ml IVP PRN PRN PRN Reason: NEEDED PER PROVIDER ORDERS Last Admin: 06/10/17 06:33 Dose: 10 ml Sodium Chloride (Normal Saline Flush 0.9%) 10 ml IVP Q8HR [facility] Last Admin: 06/11/17 06:37 Dose: 10 ml Sodium Phosphate (K-Phos Neutral) 250 mg PO TIDWM [facility] Last Admin: 06/11/17 08:31 Dose: 250 mg Bisacodyl [Dulcolax] 10 mg PO BID 06/07/17 Gluc/Oli-MSM#1/Vit C/Bhavesh/Bor [Ekshqzh-Pjlqi-TTU Complex Cplt] 1 - 2 each PO BID 06/07/17 Multivitamin,Therapeutic [Thera] 1 each PO DAILY 06/07/17 Objective - Vital Signs/Intake & Output Reviewed Vital Signs: Yes Vital Signs: Vital Signs x48h Temp Pulse Resp BP Pulse Ox 06/11/17 07:52 37.4 C 78 18 127/77 95 Intake & Output: Intake & Output 06/08/17 06/09/17 06/10/17 06/11/17 23:59 23:59 23:59 23:59 Intake Total 3250 1940 2760 1680 Output Total 650 Balance 2600 1940 2760 1680 - Objective General Appearance: positive: No acute distress, Alert, Other (tall while male who looks stated age, crew cut hair) Eyes Bilateral: positive: PERRL, Other (wears glasses) ENT: positive: Pharynx nml. negative: Dry mucous membranes Neck: positive: No JVD. negative: Stiff neck, Carotid bruit Respiratory: positive: Chest non-tender, No respiratory distress. negative: Wheezes, Rales, Rhonchi Cardiovascular: positive: Regular rate & rhythm. negative: Tachycardia, Gallop/ S4, Friction rub Abdomen: positive: No organomegaly, Nml bowel sounds, No distention, Tenderness (LLQ) Extremities: positive: Full ROM, No pedal edema Neurologic/Psychiatric: positive: Oriented x3, CN's nml (2-12), Motor nml - Lab Results Fish Bones: 06/11/17 04:30 06/11/17 04:30 Other Labs: Lab Results x24hrs 06/11/17 06/11/17 Range/Units 04:30 04:30 WBC 8.0 (4.8-10.8) x10^3/uL RBC 4.42 L (4.70-6.10) 10^6/uL Hgb 12.6 L (14.0-18.0) g/dL Hct 37.8 L (42.0-52.0) % MCV 85.5 (80.0-94.0) fL MCH 28.5 (27.0-31.0) pg MCHC 33.4 (32.0-36.0) g/dL RDW 14.9 (12.0-15.0) % Plt Count 242 (130-450) 10^3/uL MPV 7.5 (7.4-11.4) fL Neut # 5.4 (1.5-6.6) 10^3/uL Lymph # 1.3 L (1.5-3.5) 10^3/uL [place] # 1.0 (0.0-1.0) 10^3/uL Eos # 0.2 (0.0-0.7) 10^3/uL Baso # 0.1 (0.0-0.1) 10^3/uL Absolute Nucleated RBC 0.01 x10^3/uL Nucleated RBC % 0.1 /100WBC Sodium 137 (135-145) mmol/L Potassium 3.1 L (3.5-5.0) mmol/L Chloride 95 L (101-111) mmol/L Carbon Dioxide 26 (21-32) mmol/L Anion Gap 16.0 H (6-13) BUN 9 (6-20) mg/dL Creatinine 0.7 (0.6-1.2) mg/dL Estimated GFR (MDRD) 123 (>89) Glucose 98 (70-100) mg/dL Calcium 8.3 L (8.5-10.3) mg/dL Total Bilirubin 0.5 (0.2-1.0) mg/dL AST 15 (10-42) IU/L ALT 12 (10-60) IU/L Alkaline Phosphatase 62 (42-121) IU/L Total Protein 6.4 L (6.7-8.2) g/dL Albumin 3.1 L (3.2-5.5) g/dL Globulin 3.3 (2.1-4.2) g/dL Albumin/Globulin Ratio 0.9 L (1.0-2.2) Assessment/Plan - Problem List (1) Diverticulitis of gastrointestinal tract Impression: the patient will be here greater than the 96 hours attested to on admission. he has not responded in expected time frame and will need 2-3 more days of IV abx with CT to be done 06/12 to establish if developing an abcess or if responding. he will be continued on IV abx. Surgery consult to be done 06/12 if not improved. stop laxatives he is already walking several times a day and encouraged to continue. (2) Eating disorder Impression: he purges with laxatives to keep his weight down and feels it's water weight. now asking for diuretics Plan: counselled again on the severe side effects to bowel with chronic laxative abuse I declined giving him diuretics Strongly encouraged to seek Nutrition support, Mental health support and to see GI as outpt for colonoscopy and evaluation Check weight today.
[2017-06-11] MEDS: POTASSIUM CHLOR 10 MEQ/100 ML 10 MEQ/100 ML BAG IV SCH ×4 (14:14→17:54)
[2017-06-11] MEDS ORDERED: SODIUM CHLORIDE 0.9% 500 ML IV ONE (15:00)
[2017-06-11] MEDS: ACETAMINOPHEN 325 MG TABLET PO PRN (16:24)
[2017-06-11] MEDS: cefTRIAXone 2 GM in SODIUM CHLORIDE 0.9% MINIBAG 100 ML IV SCH (18:58)
[2017-06-12] MEDS: metroNIDAZOLE 500 MG/100 ML 500 MG/100 ML BAG IV SCH ×4 (02:11→18:40)
[2017-06-12] MEDS: SODIUM CHLORIDE FLUSH 0.9% 10 ML SYRINGE IVP SCH ×3 (02:11→20:09)
[2017-06-12] MEDS: oxyCODONE 5 MG TABLET PO PRN ×3 (02:17→13:46)
[2017-06-12] MEDS ORDERED: IOPAMIDOL-300 100 ML VIAL ONE (08:55)
[2017-06-12] MEDS: DOCUSATE SODIUM 250 MG CAPSULE PO SCH (08:58)
[2017-06-12] MEDS: SENNA 8.6 MG TABLET PO SCH (08:58)
[2017-06-12] MEDS: POLYETHYLENE GLYCOL 3350 17 GM PACKET PO SCH (08:58)
[2017-06-12] MEDS: FAMOTIDINE 20 MG TABLET PO SCH (09:17)
[2017-06-12] MEDS: NEUTRA-PHOS 250 MG TABLET PO SCH ×3 (09:22→17:27)
[2017-06-12] MEDS: SODIUM CHLORIDE FLUSH 0.9% 10 ML SYRINGE IVP PRN ×3 (09:23→20:08)
[2017-06-12 10:11] LABS: CALCIUM 8.6 mg/dL (8.5-10.3); CREATININE 0.8 mg/dL (0.6-1.2)
[2017-06-12] MEDS ORDERED: IOPAMIDOL-300 50 ML VIAL ONE (10:26)
[2017-06-12] MEDS ORDERED: IOPAMIDOL-300 100 ML VIAL IVP ONE (11:58)
--- NOTE | 2017-06-12 13:55 | CT Preliminary Report ---
Exam: CT ABDOMEN/PELVIS W/ 1. Sigmoid diverticulitis with interval slight decrease in size of the small abscess abutting the sales representative aircraft nial portion of the proximal sigmoid colon. 2. No significant interval changes of the complex fluid collection, likely abscess formation, one in the lower lateral right abdomen to the medial abdomen and one in the cul-de-sac. 3. No significant interval changes of the ill-defined foci of small calcified densities abutting the base of the cecum, without well visualized appendix. 4. Negative for bowel obstruction. 6. New focal thickened bladder wall in the anterior dome area which has small clear fat plane between the sigmoid colon, suggesting new cystitis versus less likely secondary changes from the sigmoid div erticulitis, otherwise nonspecific. [facility] SITE ID: [id number]
--- NOTE | 2017-06-12 14:20 | CT Report ---
EXAM: CT ABDOMEN AND PELVIS EXAM DATE: 06/12/2017 11:58 AM. CLINICAL HISTORY: Followup of left lower quadrant diverticulitis. COMPARISONS: 06/09/2017. TECHNIQUE: Routine helical CT imaging was performed through the abdomen and pelvis. IV contrast: 100M L OF ISOVUE 300. Enteric contrast: No. Reconstructions: Coronal and sagittal. In accordance with CT protocol optimization, one or more of the following dose reduction techniques w ere utilized for this exam: automated exposure control, adjustment of mA and/or KV based on patient s ize, or use of iterative reconstructive technique. FINDINGS: Lung Bases: Small right pleural effusion and right basilar opacity, decreased since last exam. The pr ior small left pleural effusion and left basilar opacity are no longer visualized. Liver: The cystic focus in segment 4, 4 mm unchanged. No masses. Gallbladder/Bile Ducts: Unremarkable. Spleen: 14.6 cm in longest dimension, previously 15.6 cm. Pancreas: Normal. Adrenal Glands: Normal. Kidneys: No stone, masses or hydronephrosis. Peritoneal Cavity/Bowel: 1. There is colon diverticulosis. There is again thickened bowel wall with adjacent fat stranding in the mid-proximal sigmoid colon, the small abscess containing gas and fluid abutting the anterior por tion of the proximal sigmoid colon measured 1.5 x 1.8 cm, previously 2.2 x 1.9 cm. 2. The loculated fluid, likely abscess formation, in the right lower lateral to the right lower media l abdomen in L-shape again noted, approximately 2.7 x 8 cm of the horizontal portion and 3 x 6.6 cm o f the vertical portion, and the loculated fluid with slight hyperenhanced wall in cul-de-sac measured 3.3 x 7.6 x 4.1 cm, without significant interval changes. 3. There are again ill-defined foci of small calcified densities abutting the base of the cecum, with out well visualized appendix. 4. No new loculated fluid, free air or adenopathy. 5. The remainder of the colon and small bowel demonstrate no dilatation or acute inflammatory process . Pelvic Organs: There is new thickened wall, 0.7 to 1.7 cm in thickness focally with adjacent fat stra nding in the anterior dome of the bladder which maintained small clear fat plane between the sigmoid colon; there is no bladder filling defect or stone. The rectum is within normal limits. Vasculature: No aneurysms or other significant abnormality. Bones: No significant abnormality. IMPRESSION: 1. Sigmoid diverticulitis with interval slight decrease in size of the small abscess abutting the cracker off nial portion of the proximal sigmoid colon. 2. No significant interval changes of the complex fluid collection, likely abscess formation, one in the lower lateral right abdomen to the medial abdomen and one in the cul-de-sac. 3. No significant interval changes of the ill-defined foci of small calcified densities abutting the base of the cecum, without well visualized appendix. 4. Negative for bowel obstruction. 5. New focal thickened bladder wall in the anterior dome area which has small clear fat plane between the sigmoid colon, suggesting new cystitis versus less likely secondary changes from the sigmoid div erticulitis, otherwise nonspecific. 6. Interval less prominent splenomegaly, nonspecific finding; negative for cirrhosis or adenopathy. [facility] Referring Provider Line: [phone] SITE ID: [id number]
--- NOTE | 2017-06-12 15:26 | PROVIDER PROGRESS NOTE ---
Subjective - Prog Note Date Prog Note Date: 06/12/17 Prog Note Time: 15:25 - Subjective Subjective: he's scared. tearful. "who will take care of my father." again fears . 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 unfortunately no true weight recorded yet. fears he will lose his job. Current Medications - Current Medications Current Medications: Active Medications Acetaminophen (Tylenol) 650 mg PO Q4HR PRN PRN Reason: Pain 1 to 4 Last Admin: 06/11/17 16:24 Dose: 650 mg Docusate Sodium (Colace 250mg Capsule) 250 - 500 mg PO DAILY [facility] Last Admin: 06/12/17 08:58 Dose: Not Given Famotidine (Pepcid) 20 mg PO BID [facility] Last Admin: 06/12/17 09:17 Dose: Not Given Hydromorphone HCl (Dilaudid Inj Syringe) 0.5 mg IVP Q2H PRN PRN Reason: Pain 8 to 10 Last Admin: 06/06/17 18:48 Dose: 0.5 mg Ceftriaxone Sodium 2 gm/ (Sodium Chloride) 100 mls @ 200 mls/hr IV Q24H [facility] Last Infusion: 06/11/17 19:30 Dose: Infused Metronidazole (Flagyl 500 Mg/100 Ml) 500 mg in 100 mls @ 100 mls/hr IV Q6HR [facility] Last Infusion: 06/12/17 13:46 Dose: Infused Potassium Chloride (Potassium Chloride) 20 meq in 100 mls @ 100 mls/hr IV Q1H [facility] Stop: 06/12/17 23:59 Ondansetron HCl (Zofran Inj) 4 mg IVP Q6HR PRN PRN Reason: Nausea / Vomiting Oxycodone HCl (Roxicodone) 5 mg PO Q4HR PRN PRN Reason: Pain 5 to 7 Last Admin: 06/12/17 13:46 Dose: 5 mg Oxycodone HCl (Roxicodone) 10 mg PO Q4HR PRN PRN Reason: Pain 8 to 10 Last Admin: 06/12/17 02:17 Dose: 10 mg Polyethylene Glycol (Miralax) 17 gm PO DAILY [facility] Last Admin: 06/12/17 08:58 Dose: Not Given Prochlorperazine Edisylate (Compazine Inj) 10 mg IVP Q6HR PRN PRN Reason: Nausea / Vomiting Promethazine HCl (Phenergan Inj) 25 mg IM Q6HR PRN PRN Reason: Nausea / Vomiting Senna (Senokot) 8.6 - 17.2 mg PO DAILY [facility] Last Admin: 06/12/17 08:58 Dose: Not Given Sodium Chloride (Normal Saline Flush 0.9%) 10 ml IVP PRN PRN PRN Reason: NEEDED PER PROVIDER ORDERS Last Admin: 06/12/17 12:17 Dose: 10 ml Sodium Chloride (Normal Saline Flush 0.9%) 10 ml IVP Q8HR [facility] Last Admin: 06/12/17 13:46 Dose: Not Given Sodium Phosphate (K-Phos Neutral) 250 mg PO TIDWM [facility] Last Admin: 06/12/17 12:16 Dose: 250 mg Bisacodyl [Dulcolax] 10 mg PO BID 06/07/17 Gluc/Oli-MSM#1/Vit C/Bhavesh/Bor [Ychdetx-Ojwws-DFO Complex Cplt] 1 - 2 each PO BID 06/07/17 Multivitamin,Therapeutic [Thera] 1 each PO DAILY 06/07/17 Objective - Vital Signs/Intake & Output Reviewed Vital Signs: Yes Vital Signs: Vital Signs x48h Temp Pulse Resp BP Pulse Ox 06/12/17 13:47 37.2 C 84 16 129/88 H 100 Intake & Output: Intake & Output 06/09/17 06/10/17 06/11/17 06/12/17 23:59 23:59 23:59 23:59 Intake Total 0 2760 4539.167 800 Balance 0 2760 4539.167 800 - Objective General Appearance: positive: No acute distress, Alert, Other (glasses) Eyes Bilateral: positive: PERRL, EOMI ENT: positive: Pharynx nml Neck: positive: No JVD. negative: Stiff neck, Carotid bruit Respiratory: positive: Chest non-tender. negative: Wheezes, Rales, Rhonchi Cardiovascular: positive: Regular rate & rhythm. negative: Gallop/S3, Gallop/S4 , Friction rub Abdomen: positive: No organomegaly, No distention, Tenderness (LLQ), Abnml bowel sounds (hypoactive). negative: Guarding, Rebound Skin: positive: Warm, Dry Extremities: positive: Full ROM, No pedal edema (even though he thinks he is) Neurologic/Psychiatric: positive: Oriented x3, CN's nml (2-12), Motor nml - Lab Results Fish Bones: 06/11/17 04:30 06/13/17 05:00 Other Labs: Lab Results x24hrs 06/12/17 Range/Units 09:52 Sodium 139 (135-145) mmol/L Potassium 3.0 L (3.5-5.0) mmol/L Chloride 94 L (101-111) mmol/L Carbon Dioxide 27 (21-32) mmol/L Anion Gap 18.0 H (6-13) BUN 7 (6-20) mg/dL Creatinine 0.8 (0.6-1.2) mg/dL Estimated GFR (MDRD) 106 (>89) Glucose 99 (70-100) mg/dL Calcium 8.6 (8.5-10.3) mg/dL Assessment/Plan - Problem List (1) Diverticulitis of gastrointestinal tract Impression: Repeat CT shows same status with no improvement and now the dome of his bladder shows inflammation. Plan: consult with General Surgery Continue abx
[2017-06-12] MEDS ORDERED: POTASSIUM CHLOR 20 MEQ/100 ML 20 MEQ/100 ML BAG IV SCH (16:00)
[2017-06-12] MEDS: cefTRIAXone 2 GM in SODIUM CHLORIDE 0.9% MINIBAG 100 ML IV SCH (17:26)
[2017-06-12] MEDS: POTASSIUM CHLOR 10 MEQ/100 ML 10 MEQ/100 ML BAG IV SCH ×4 (17:27→23:02)
[2017-06-12] MEDS ORDERED: HYDROmorphone 1 MG/ML SYRINGE IVP PRN (19:12)
[2017-06-12] MEDS ORDERED: SODIUM/POTASSIUM/MAG SULFATES 354 ML PREP KIT PO ONE (19:51)
[2017-06-12] MEDS: HYDROmorphone 1 MG/ML SYRINGE IVP PRN (20:08)
[2017-06-12] MEDS: FAMOTIDINE 20 MG in SODIUM CHLORIDE 0.9% 50 ML IV SCH ×2 (20:08→21:01)
[2017-06-12] MEDS: PIPERACILLIN/TAZOBACTAM 3.375 GM in SODIUM CHLORIDE 0.9% MINIBAG 100 ML IV SCH (21:05)
[2017-06-13] MEDS: POTASSIUM CHLOR 10 MEQ/100 ML 10 MEQ/100 ML BAG IV SCH ×4 (00:32→04:59)
[2017-06-13] MEDS ORDERED: SODIUM CHLORIDE 0.9% 500 ML IV ONE (01:40)
[2017-06-13] MEDS: HYDROmorphone 1 MG/ML SYRINGE IVP PRN (02:06)
[2017-06-13] MEDS: PIPERACILLIN/TAZOBACTAM 3.375 GM in SODIUM CHLORIDE 0.9% MINIBAG 100 ML IV SCH ×4 (03:46→19:55)
[2017-06-13] MEDS ORDERED: POTASSIUM CHLOR 10 MEQ/100 ML 10 MEQ/100 ML BAG IV ONE (05:03)
[2017-06-13] MEDS: SODIUM CHLORIDE FLUSH 0.9% 10 ML SYRINGE IVP SCH ×3 (05:12→21:13)
[2017-06-13 05:30] LABS: CALCIUM 8.3 mg/dL (8.5-10.3); CREATININE 0.9 mg/dL (0.6-1.2)
[2017-06-13] MEDS ORDERED: ONDANSETRON 4 MG/2 ML VIAL IVP PRN (08:05)
[2017-06-13] MEDS ORDERED: NALBUPHINE 20 MG/ML AMP IVP PRN (08:05)
[2017-06-13] MEDS ORDERED: fent/BUPIV 2 MCG/0.125% 250 ML EP PRN (08:05)
[2017-06-13] MEDS ORDERED: SODIUM CHLORIDE 0.9% 1,000 ML IV ONE (08:46)
[2017-06-13] MEDS: NEUTRA-PHOS 250 MG TABLET PO SCH ×2 (09:00→15:32)
[2017-06-13] MEDS: FAMOTIDINE 20 MG in SODIUM CHLORIDE 0.9% 50 ML IV SCH ×2 (09:00→21:12)
[2017-06-13] MEDS ORDERED: BUPIVACAINE 0.25%-EPI 1:200000 PF 10 ML VIAL SUBQ ONE (09:50)
[2017-06-13] MEDS ORDERED: ROCURONIUM 50 MG/5 ML VIAL IVP ONE ×2 (10:08)
[2017-06-13] MEDS ORDERED: PROPOFOL 200 MG/20 ML VIAL IVP ONE ×2 (10:08)
[2017-06-13] MEDS ORDERED: fentaNYL 100 MCG/2 ML VIAL IVP ONE (10:08)
[2017-06-13] MEDS ORDERED: NEOSTIGMINE 1 MG/1 ML 10 ML MDV IVP ONE (10:08)
[2017-06-13] MEDS ORDERED: ACETAMINOPHEN 1,000 MG/100 ML 100 ML IV ONE (10:08)
[2017-06-13] MEDS ORDERED: MIDAZOLAM 2 MG/2 ML VIAL IVP ONE (10:08)
[2017-06-13] MEDS ORDERED: GLYCOPYRROLATE 1 MG/5 ML VIAL IVP ONE (10:08)
[2017-06-13] MEDS ORDERED: DEXAMETHASONE 4 MG/ML VIAL IVP ONE (10:08)
[2017-06-13] MEDS ORDERED: BUPIVACAINE 0.25%-EPI 1:200000 PF 30 ML VIAL SUBQ ONE (10:08)
[2017-06-13] MEDS ORDERED: LACTATED RINGERS 1,000 ML IV ONE ×3 (10:30→13:30)
[2017-06-13] MEDS ORDERED: fent/BUPIV 2 MCG/0.125% 250 ML EP ONE (14:28)
--- NOTE | 2017-06-13 17:01 | PROVIDER PROGRESS NOTE ---
Subjective - Prog Note Date Prog Note Date: 06/13/17 Prog Note Time: 16:59 - Subjective Subjective: he went to the OR this morning. He's in ICU for 1:1 care per Surgery request. He 's hemodynamically stable. He's worried. Can't stop thinking about "what if: Current Medications - Current Medications Current Medications: Active Medications Acetaminophen (Tylenol) 650 mg PO Q4HR PRN PRN Reason: Pain 1 to 4 Last Admin: 06/11/17 16:24 Dose: 650 mg Hydromorphone HCl (Dilaudid Inj Syringe) 2 mg IVP Q2H PRN PRN Reason: Abdominal Pain Hydromorphone HCl (Dilaudid Inj Syringe) 1 mg IVP Q2H PRN PRN Reason: Abdominal Pain Last Admin: 06/13/17 02:06 Dose: 1 mg Famotidine 20 mg/ Sodium (Chloride) 52 mls @ 100 mls/hr IV BID [facility] [place] Last Admin: 06/13/17 09:00 Dose: Not Given Piperacillin Sod/Tazobactam (Sod 3.375 gm/ Sodium Chloride) 100 mls @ 200 mls/ hr IV Q6H [facility] [place] Last Infusion: 06/13/17 15:30 Dose: Infused Fentanyl/Bupivacaine/Sodium Chlor (Fent/Bupiv 2 Mcg/0.125%) 250 mls @ 0 mls/hr EP .Q0M PRN; Protocol; Per Protocol PRN Reason: PAIN Potassium Chloride/Dextrose/Sod Cl () 1,000 mls @ 125 mls/hr IV .Q8H [facility] [place] Nalbuphine HCl (Nubain) 2.5 - 5 mg IVP Q4HR PRN PRN Reason: Severe Itching Ondansetron HCl (Zofran Inj) 4 mg IVP Q6HR PRN PRN Reason: Nausea / Vomiting Ondansetron HCl (Zofran Inj) 4 mg IVP Q6HR PRN PRN Reason: Nausea / Vomiting Prochlorperazine Edisylate (Compazine Inj) 10 mg IVP Q6HR PRN PRN Reason: Nausea / Vomiting Promethazine HCl (Phenergan Inj) 25 mg IM Q6HR PRN PRN Reason: Nausea / Vomiting Sodium Chloride (Normal Saline Flush 0.9%) 10 ml IVP PRN PRN PRN Reason: NEEDED PER PROVIDER ORDERS Last Admin: 06/12/17 20:08 Dose: 10 ml Sodium Chloride (Normal Saline Flush 0.9%) 10 ml IVP Q8HR [facility] Last Admin: 06/13/17 15:33 Dose: Not Given Bisacodyl [Dulcolax] 10 mg PO BID 06/07/17 Gluc/Oli-MSM#1/Vit C/Bhavesh/Bor [Novhsnr-Olfot-FMS Complex Cplt] 1 - 2 each PO BID 06/07/17 Multivitamin,Therapeutic [Thera] 1 each PO DAILY 06/07/17 Objective - Vital Signs/Intake & Output Reviewed Vital Signs: Yes Vital Signs: Vital Signs x48h Temp Pulse Pulse Resp BP Pulse Ox 06/13/17 16:00 358 C H 84 83 16 120/75 100 06/13/17 15:30 80 17 116/68 06/13/17 15:15 82 18 118/79 100 06/13/17 15:10 100 06/13/17 15:05 98 06/13/17 15:00 99 06/13/17 14:55 100 06/13/17 14:50 100 06/13/17 14:45 99 06/13/17 14:39 96 Intake & Output: Intake & Output 06/10/17 06/11/17 06/12/17 06/13/17 23:59 23:59 23:59 23:59 Intake Total 2760 4539.167 1842 800 Output Total 50 Balance 2760 4539.167 1842 750 - Objective General Appearance: positive: Alert, Mild distress, Anxious Eyes Bilateral: positive: PERRL ENT: positive: Dry mucous membranes Neck: positive: No JVD. negative: Stiff neck, Carotid bruit Respiratory: positive: Chest non-tender. negative: Wheezes, Rales, Rhonchi Cardiovascular: positive: Regular rate & rhythm. negative: Gallop/S3, Gallop/S4 , Friction rub Abdomen: positive: Abnml bowel sounds (none). negative: Guarding, Rebound Skin: positive: Warm, Dry Extremities: positive: Full ROM, No pedal edema Neurologic/Psychiatric: positive: Oriented x3, CN's nml (2-12), Motor nml - Lab Results Fish Bones: 06/11/17 04:30 06/13/17 05:00 Other Labs: Lab Results x24hrs 06/13/17 06/13/17 Range/Units 05:00 05:00 Sodium 138 (135-145) mmol/L Potassium 3.6 (3.5-5.0) mmol/L Chloride 100 L (101-111) mmol/L Carbon Dioxide 28 (21-32) mmol/L Anion Gap 10.0 (6-13) BUN 8 (6-20) mg/dL Creatinine 0.9 (0.6-1.2) mg/dL Estimated GFR (MDRD) 92 (>89) Glucose 99 (70-100) mg/dL Calcium 8.3 L (8.5-10.3) mg/dL Blood Type B POSITIVE Antibody Screen NEGATIVE Assessment/Plan - Problem List (1) Diverticulitis of gastrointestinal tract Impression: Had 6 days of rocephin and flagyl. CT done on admission, day #3 and Day #6 and no improvement. today Day #2 zosyn POD#0 for diagnostic laparoscopy, exploratory laparotomy. Sigmoid resection with colorectal anastamosis. Splenic flexure takedown. Incidental appendectomy. Diverting loop ilieostomy. Wound Vac placement. He is not in pain. Just worried about the future. Plan: per Dr. Yun. wait for bowel tones. (2) Protein-calorie malnutrition, mild Impression: hasn't eaten in close to 6 days. Plan: PICC in am TPN orders with Dr Yun changed all meds to IV and stopped po meds. (3) Anxiety about health Impression: RN is doing a good job with emotional support. We keep on reassuring him he's doing well.
[2017-06-13] MEDS: D5NS W/20 MEQ KCL 1,000 ML IV SCH (17:19)
[2017-06-13] MEDS ORDERED: SODIUM/POTASSIUM/MAG SULFATES 354 ML PREP KIT PO SCH (18:15)
--- NOTE | 2017-06-13 18:53 | CONSULTATION NOTE ---
DATE OF SERVICE: 06/12/2017 Physician: Seth Yun MD DATE OF SERVICE: 06/12/2017 REASON FOR CONSULTATION: Abdominal pain. REFERRING PROVIDER: Dr. Luo. HISTORY OF PRESENT ILLNESS: The patient is a 42-year-old male who was admitted to the hospital for almost a week now. He presented to the emergency room with 1-day history of right-sided and right lower quadrant abdominal pain. This is the first time he has had this pain. He has had history of constipation. Because of the pain, he came to the emergency room to be evaluated. He denied any nausea or vomiting. He had a white blood cell count of 10. CT scan of the abdomen and pelvis at that time showed a focal inflammatory process in the central pelvis around the sigmoid colon with multiple diverticula. There is a small amount of fluid being present. He was then admitted to the hospital and started on IV antibiotics. He had a followup CT scan, which now showed a localized perforation in the sigmoid colon without any drainable abscess. He persisted with abdominal pain. He remained afebrile, having a normal white blood cell count currently at 8. Another CT scan done earlier today, now showed that the diverticulitis was slightly decreased with a small abscess in the cranial portion of the sigmoid colon. He has a complex fluid collection, likely abscess in the right lower quadrant along with focal thickening of the bladder. Because of this, general surgery consultation was requested. PAST MEDICAL HISTORY: None. HABITS: The patient does use alcohol, denies any smoking or drug use. PAST SURGICAL HISTORY: None. MEDICATIONS: None. ALLERGIES TO MEDICATIONS: NONE. SOCIAL HISTORY: The patient is single. FAMILY HISTORY: Noncontributory. REVIEW OF SYSTEMS: Complete review of systems obtained. Pertinent positives are gastrointestinal, abdominal pain and a yellowish type of stool. A 12-point review of systems obtained with pertinent positives discussed and all others being negative. PHYSICAL EXAMINATION: VITAL SIGNS: Temperature is 37.3, heart rate 80, blood pressure 115/78, respirations 20. GENERAL: The patient is sitting up in a chair. He is not in any distress at the current time. EYES: Nonicteric. NECK: No lymphadenopathy. HEART: Regular. LUNGS: Clear. BACK: Nontender. ABDOMEN: Obese, tender in the right lower quadrant and right lateral abdomen. Minimal tenderness in the suprapubic region. No hernias. EXTREMITIES: No edema or cyanosis. NEUROLOGIC: The patient appears to be neurologically intact without any deficit. PSYCHOLOGICAL: The patient is coherent, cooperative, and appears to answer questions fully. DIAGNOSTIC DATA: See history of present illness. ASSESSMENT AND PLAN 1. Abdominal pain secondary to probable perforated sigmoid diverticulitis with now having a probable complex abscess in the right lower quadrant. This is most likely why he is tender in this region. There is always the possibility of appendicitis, which the appendix was not visualized, but less likely as diverticulitis was seen on the CT scan. Because of his worsening condition. As far as the radiographic and continued abdominal pain, I have recommended that he undergo surgery. This would be a diagnostic laparoscopy, possible laparotomy, possible bowel resection, possible ostomy. The risks and possible complication of the procedure have been explained to him and include, but not limited to bleeding, infection, anesthesia risks, heart and lung problems, wound healing problems, intra-abdominal abscess formation needing further intervention, injury to abdominal structures causing more bleeding, need for further intervention, anastomotic leak causing major morbidity, wound healing problems, hernia formation, anesthesia risks, heart and lung problems. He accepts risks and wishes to proceed with the procedure. I have recommended that he have an epidural placed prior to the surgery. 2. Hypokalemia. This will be corrected overnight. Plan is we will do a limited bowel prep tonight as he is able to drink and is having bowel movements. I have discussed the likelihood of doing the anastomosis with a resection [TIME: 06:16] certainly possible. This is more likely to happen with a protecting ileostomy. Jacob's procedure would be the treatment of choice going into the procedure and most likely will be what is performed and he understands this. 3. Will change his antibiotics to Zosyn. TD: 06/13/2017 19:52
[2017-06-14] MEDS: ACETAMINOPHEN 1,000 MG/100 ML 100 ML IV PRN ×3 (00:04→15:08)
[2017-06-14 01:14] LABS: CALCIUM 7.8 mg/dL (8.5-10.3); CREATININE 0.9 mg/dL (0.6-1.2)
[2017-06-14 01:17] LABS: BASOPHILS % (AUTO) 1.9 %; EOSINOPHILS % (AUTO) 0.1 %; HGB - HEMOGLOBIN 12.8 g/dL (14.0-18.0); LYMPHOCYTES % (AUTO) 6.6 %; MEAN CORPUSCULAR HEMOGLOBIN 29.1 pg (27.0-31.0); MEAN CORPUSCULAR HGB CONC 34.2 g/dL (32.0-36.0); MEAN CORPUSCULAR VOLUME 85.3 fL (80.0-94.0); MEAN PLATELET VOLUME 7.6 fL (7.4-11.4); MONOCYTES % (AUTO) 7.5 %; NEUTROPHILS % (AUTO) 83.9 %; PLT - PLATELET COUNT 417 10^3/uL (130-450); RED BLOOD COUNT 4.39 10^6/uL (4.70-6.10); RED CELL DISTRIBUTION WIDTH 14.5 % (12.0-15.0); WHITE BLOOD COUNT 12.4 x10^3/uL (4.8-10.8)
[2017-06-14 01:21] LABS: ABNORMAL LYMPHS % (MANUAL) 0 %; BAND NEUTROPHILS % (MANUAL) 0 %
[2017-06-14 01:41] LABS: LYMPHOCYTES % (MANUAL) 9 %; MONOCYTES # (MANUAL) 0.5 10^3/uL (0.0-1.0); NEUTROPHILS # (MANUAL) 9.9 10^3/uL (1.5-6.6); NEUTROPHILS % (MANUAL) 80 %
[2017-06-14 01:42] LABS: DIFFERENTIAL COMMENT MANUAL DIFFERENTIAL; PLATELET ESTIMATE, MANUAL NORMAL (130-450,000) (NORMAL); PLATELET MORPHOLOGY NORMAL APPEARANCE (NORMAL); RBC MORPHOLOGY (MULTIPLE) NORMAL APPEARANCE (NORMAL)
[2017-06-14] MEDS: D5NS W/20 MEQ KCL 1,000 ML IV SCH ×3 (02:03→20:00)
[2017-06-14] MEDS: PIPERACILLIN/TAZOBACTAM 3.375 GM in SODIUM CHLORIDE 0.9% MINIBAG 100 ML IV SCH ×4 (02:06→20:05)
[2017-06-14] MEDS: SODIUM CHLORIDE FLUSH 0.9% 10 ML SYRINGE IVP SCH ×3 (06:32→22:14)
[2017-06-14 07:10] LABS: BASOPHILS % (AUTO) 0.3 %; EOSINOPHILS % (AUTO) 0.4 %; HGB - HEMOGLOBIN 12.7 g/dL (14.0-18.0); LYMPHOCYTES % (AUTO) 8.2 %; MEAN CORPUSCULAR HEMOGLOBIN 28.4 pg (27.0-31.0); MEAN CORPUSCULAR HGB CONC 33.1 g/dL (32.0-36.0); MEAN PLATELET VOLUME 7.3 fL (7.4-11.4); MONOCYTES % (AUTO) 8.5 %; NEUTROPHILS % (AUTO) 82.6 %; PLT - PLATELET COUNT 403 10^3/uL (130-450); RED BLOOD COUNT 4.46 10^6/uL (4.70-6.10); RED CELL DISTRIBUTION WIDTH 14.9 % (12.0-15.0); WHITE BLOOD COUNT 12.9 x10^3/uL (4.8-10.8)
[2017-06-14 07:21] LABS: ALBUMIN 2.5 g/dL (3.2-5.5); ALBUMIN/GLOBULIN RATIO 0.8 (1.0-2.2); BILIRUBIN,TOTAL 0.2 mg/dL (0.2-1.0); CALCIUM 7.7 mg/dL (8.5-10.3); CREATININE 0.9 mg/dL (0.6-1.2); PHOSPHORUS 2.6 mg/dL (2.5-4.6); TOTAL PROTEIN 5.8 g/dL (6.7-8.2)
--- NOTE | 2017-06-14 07:50 | PROVIDER PROGRESS NOTE ---
Subjective - Prog Note Date Prog Note Date: 06/14/17 Prog Note Time: 14:36 - Subjective Subjective: pain is a problem. he is not receiving much relief from the epidural. left leg can barely be lifted and right leg moving freely. he points to the entire anterior abd wall as his location for pain he denies cp, sob. Current Medications - Current Medications Current Medications: Active Medications Famotidine 20 mg/ Sodium (Chloride) 52 mls @ 100 mls/hr IV BID [facility] Last Infusion: 06/13/17 21:52 Dose: Infused Piperacillin Sod/Tazobactam (Sod 3.375 gm/ Sodium Chloride) 100 mls @ 200 mls/ hr IV Q6H [facility] Last Infusion: 06/14/17 02:35 Dose: Infused Fentanyl/Bupivacaine/Sodium Chlor (Fent/Bupiv 2 Mcg/0.125%) 250 mls @ 0 mls/hr EP .Q0M PRN; Protocol; Per Protocol PRN Reason: PAIN Potassium Chloride/Dextrose/Sod Cl () 1,000 mls @ 125 mls/hr IV .Q8H [facility] Last Admin: 06/14/17 02:03 Dose: 125 mls/hr Acetaminophen (Ofirmev) 100 mls @ 400 mls/hr IV Q6H PRN PRN Reason: Pain or Fever > 38C (100.4F) Last Infusion: 06/14/17 00:34 Dose: Infused Nalbuphine HCl (Nubain) 2.5 - 5 mg IVP Q4HR PRN PRN Reason: Severe Itching Ondansetron HCl (Zofran Inj) 4 mg IVP Q6HR PRN PRN Reason: Nausea / Vomiting Ondansetron HCl (Zofran Inj) 4 mg IVP Q6HR PRN PRN Reason: Nausea / Vomiting Prochlorperazine Edisylate (Compazine Inj) 10 mg IVP Q6HR PRN PRN Reason: Nausea / Vomiting Promethazine HCl (Phenergan Inj) 25 mg IM Q6HR PRN PRN Reason: Nausea / Vomiting Sodium Chloride (Normal Saline Flush 0.9%) 10 ml IVP PRN PRN PRN Reason: NEEDED PER PROVIDER ORDERS Last Admin: 06/12/17 20:08 Dose: 10 ml Sodium Chloride (Normal Saline Flush 0.9%) 10 ml IVP Q8HR [facility] Last Admin: 06/14/17 06:32 Dose: Not Given Bisacodyl [Dulcolax] 10 mg PO BID 06/07/17 Gluc/Oli-MSM#1/Vit C/Bhavesh/Bor [Bmluozo-Ovvrp-ZPY Complex Cplt] 1 - 2 each PO BID 06/07/17 Multivitamin,Therapeutic [Thera] 1 each PO DAILY 06/07/17 Objective - Vital Signs/Intake & Output Reviewed Vital Signs: Yes Vital Signs: Vital Signs x48h Temp Pulse Resp BP Pulse Ox 06/14/17 05:59 92 22 130/79 94 06/14/17 05:00 98 23 125/80 94 06/14/17 04:00 37.9 C H 101 H 22 127/79 93 06/14/17 03:00 98 24 121/70 95 06/14/17 02:00 100 22 121/73 95 06/14/17 01:00 98 22 117/74 95 06/14/17 00:00 38.0 C H 99 27 H 121/77 95 Intake & Output: Intake & Output 06/11/17 06/12/17 06/13/17 06/14/17 23:59 23:59 23:59 23:59 Intake Total 4539.167 1842 2886.544 5681 Output Total 1690 965 Balance 4539.167 1842 62.833 240 - Objective General Appearance: positive: Alert, Moderate distress, Other (glasses) Eyes Bilateral: positive: PERRL, EOMI ENT: positive: Pharynx nml Neck: negative: No JVD, Lymphadenopathy (R), Lymphadenopathy (L), Stiff neck, Carotid bruit Respiratory: positive: Chest non-tender, Rales. negative: Wheezes, Rhonchi Cardiovascular: positive: Regular rate & rhythm. negative: Gallop/S3, Gallop/S4 , Friction rub Abdomen: positive: No distention, Tenderness, Other (no bowel sounds, vertical midline incission with vacum bandage. surrounding skin clean, dry, no redness no heat.) Skin: positive: Warm, Dry Extremities: positive: Full ROM, No pedal edema Neurologic/Psychiatric: positive: Oriented x3, CN's nml (2-12), Motor nml - Lab Results Fish Bones: 06/14/17 07:00 06/14/17 07:00 Other Labs: Lab Results x24hrs 06/14/17 06/14/17 06/13/17 Range/Units 07:00 07:00 23:59 WBC (4.8-10.8) x10^3/uL RBC (4.70-6.10) 10^6/uL Hgb (14.0-18.0) g/dL Hct (42.0-52.0) % MCV (80.0-94.0) fL MCH (27.0-31.0) pg MCHC (32.0-36.0) g/dL RDW (12.0-15.0) % Plt Count (130-450) 10^3/uL MPV (7.4-11.4) fL Neut # Lymph # Dare # Eos # Baso # Absolute Nucleated RBC Total Counted Band Neuts % (Manual) (0 - 10) % Reactive Lymphs % (Man) % Abnorm Lymph % (Manual) % Nucleated RBC % Neutrophils # (Manual) (1.5-6.6) 10^3/uL Lymphocytes # (Manual) (1.5-3.5) 10^3/uL Monocytes # (Manual) (0.0-1.0) 10^3/uL Eosinophils # (Manual) (0-0.7) 10^3/uL Basophils # (Manual) (0-0.1) 10^3/uL Differential Comment Platelet Estimate (NORMAL) Platelet Morphology (NORMAL) RBC Morph Micro Appear (NORMAL) Sodium 140 139 (135-145) mmol/L Potassium 3.9 4.0 (3.5-5.0) mmol/L Chloride 103 103 (101-111) mmol/L Carbon Dioxide 25 26 (21-32) mmol/L Anion Gap 12.0 10.0 (6-13) BUN 6 7 (6-20) mg/dL Creatinine 0.9 0.9 (0.6-1.2) mg/dL Estimated GFR (MDRD) 92 92 (>89) Glucose 172 H 161 H (70-100) mg/dL Calcium 7.7 L 7.8 L (8.5-10.3) mg/dL Phosphorus 2.6 (2.5-4.6) mg/dL Magnesium 2.0 (1.7-2.8) mg/dL Total Bilirubin 0.2 (0.2-1.0) mg/dL AST 54 H (10-42) IU/L ALT 19 (10-60) IU/L Alkaline Phosphatase 39 L (42-121) IU/L Total Protein 5.8 L (6.7-8.2) g/dL Albumin 2.5 L (3.2-5.5) g/dL Globulin 3.3 (2.1-4.2) g/dL Albumin/Globulin Ratio 0.8 L (1.0-2.2) Prealbumin 6 L (18-45) mg/dL 06/13/17 06/13/17 Range/Units 23:59 01:00 WBC 12.4 H (4.8-10.8) x10^3/uL RBC 4.39 L (4.70-6.10) 10^6/uL Hgb 12.8 L (14.0-18.0) g/dL Hct 37.4 L (42.0-52.0) % MCV 85.3 (80.0-94.0) fL MCH 29.1 (27.0-31.0) pg MCHC 34.2 (32.0-36.0) g/dL RDW 14.5 (12.0-15.0) % Plt Count 417 (130-450) 10^3/uL MPV 7.6 (7.4-11.4) fL Neut # Not Reportable Lymph # Not Reportable Dare # Not Reportable Eos # Not Reportable Baso # Not Reportable Absolute Nucleated RBC Not Reportable Total Counted 100 Band Neuts % (Manual) 0 (0 - 10) % Reactive Lymphs % (Man) 7 % Abnorm Lymph % (Manual) 0 % Nucleated RBC % Not Reportable Neutrophils # (Manual) 9.9 H (1.5-6.6) 10^3/uL Lymphocytes # (Manual) 2.0 (1.5-3.5) 10^3/uL Monocytes # (Manual) 0.5 (0.0-1.0) 10^3/uL Eosinophils # (Manual) 0.0 (0-0.7) 10^3/uL Basophils # (Manual) 0.0 (0-0.1) 10^3/uL Differential Comment MANUAL DIFFERENTIAL Platelet Estimate NORMAL (130-450,000) (NORMAL) Platelet Morphology NORMAL APPEARANCE (NORMAL) RBC Morph Micro Appear NORMAL APPEARANCE (NORMAL) Sodium (135-145) mmol/L Potassium (3.5-5.0) mmol/L Chloride (101-111) mmol/L Carbon Dioxide (21-32) mmol/L Anion Gap (6-13) BUN (6-20) mg/dL Creatinine (0.6-1.2) mg/dL Estimated GFR (MDRD) (>89) Glucose (70-100) mg/dL Calcium (8.5-10.3) mg/dL Phosphorus (2.5-4.6) mg/dL Magnesium (1.7-2.8) mg/dL Total Bilirubin (0.2-1.0) mg/dL AST (10-42) IU/L ALT (10-60) IU/L Alkaline Phosphatase (42-121) IU/L Total Protein (6.7-8.2) g/dL Albumin (3.2-5.5) g/dL Globulin (2.1-4.2) g/dL Albumin/Globulin Ratio (1.0-2.2) Prealbumin (18-45) mg/dL Assessment/Plan - Problem List (1) Diverticulitis of gastrointestinal tract Impression: Had 6 days of rocephin and flagyl. CT done on admission, day #3 and Day #6 and no improvement. today Day #3 zosyn POD#1 for diagnostic laparoscopy, exploratory laparotomy. Sigmoid resection with colorectal anastamosis. Splenic flexure takedown. Incidental appendectomy. Diverting loop ilieostomy. Wound Vac placement. Plan: per Dr. Yun. wait for bowel tones. (2) Protein-calorie malnutrition, mild Impression: hasn't eaten in close to 6 days. Plan: PICC today TPN orders with Dr Yun changed all meds to IV and stopped po meds. (3) Postoperative pain Impression: I've called Dr. Stokes. He's ok with pulling epidural since it's not working and I will start [employer].
[2017-06-14 07:57] LABS: ABNORMAL LYMPHS % (MANUAL) 1 %; BAND NEUTROPHILS % (MANUAL) 1 %; LYMPHOCYTES # (MANUAL) 0.9 10^3/uL (1.5-3.5); LYMPHOCYTES % (MANUAL) 6 %; MONOCYTES # (MANUAL) 0.9 10^3/uL (0.0-1.0); NEUTROPHILS # (MANUAL) 11.1 10^3/uL (1.5-6.6); NEUTROPHILS % (MANUAL) 85 %
[2017-06-14 07:58] LABS: DIFFERENTIAL COMMENT MANUAL DIFFERENTIAL; PLATELET ESTIMATE, MANUAL NORMAL (130-450,000) (NORMAL); PLATELET MORPHOLOGY NORMAL APPEARANCE (NORMAL); RBC MORPHOLOGY (MULTIPLE) NORMAL APPEARANCE (NORMAL)
--- NOTE | 2017-06-14 09:07 | OPERATIVE REPORT ---
DATE OF SERVICE: 06/13/2017 Physician: Seth Yun MD PREOPERATIVE DIAGNOSIS: Perforated diverticulitis with peritonitis. POSTOPERATIVE DIAGNOSIS: Perforated diverticulitis with peritonitis. PROCEDURE PERFORMED 1. Diagnostic laparoscopy. 2. Conversion to open exploratory laparotomy. 3. Sigmoid colon resection with colorectal anastomosis. 4. Takedown of splenic flexure. 5. Incidental appendectomy. 6. Diverting loop ileostomy. 7. Placement of wound vac. OPERATING SURGEON: Seth Yun MD ANESTHESIA: General. INDICATIONS FOR PROCEDURE: The patient is a 42-year-old male who presented to the hospital a week ago with 1-day history of lower abdominal pain and started on IV antibiotics. He had a CT scan of the abdomen and pelvis, which showed sigmoid diverticulitis. Followup CT scan showed worsening of his diverticulitis with now abscess and complex fluid collections intra- abdominally. Because of this, I recommended that he undergo surgery for this. FINDINGS OF PROCEDURE: The patient had perforated diverticulitis with peritonitis being present and purulent fluid. This was in the pelvis and right side of the abdomen. There are multiple loops of small bowel being involved in this causing thickening of the bowel. Upon entry into the abdomen an enterotomy was made, which was closed using interrupted 3-0 silk sutures along with interrupted 3-0 Vicryl sutures with 3-0 silk sutures placed in Lembert fashion. Two seromuscular tears had been made, which were also closed. The patient's left colon was not long enough in order to take down the pelvis for primary anastomosis or even a colostomy after resection of the diverticulitis. Therefore, the splenic flexure had to be mobilized. There was no tension at the colorectal staple line after doing these flexure mobilization. Because of the inflammation being in the pelvis, a diverting loop ileostomy was performed in order to protect the anastomosis. The patient's appendix was in the inflammation and because of this, it was removed incidentally. The patient's ureter was not identified, but I stayed high up on the sigmoid colon to avoid any injury. The ureters were down in the inflammatory process near the pelvic sidewall. The patient's bladder had been pulled up into the midline wound higher than normal by the inflammatory process and by recognizing this, injury was avoided. PROCEDURE: After informed consent was obtained, the patient was taken to the operating room, placed in supine position. General endotracheal anesthesia was administered. The patient was then placed in lithotomy position. His abdomen was then prepped and draped in usual sterile fashion. An infraumbilical incision was made inn the skin using a scalpel. A 5 mm Optiview trocar was then inserted through this incision and into the abdomen. After looking inside the abdomen contents was fused in an inflammatory process, I decided that laparoscopic would not be feasible. Scope was removed. A lower midline abdominal incision was then made using a scalpel, was carried down to the fascial layer using electrocautery. The fascia was then incised using electrocautery. The underlying peritoneum was very inflamed and hard. I carefully made an incision through the peritoneum, which was thickened and up to a cm in thickness. A small enterotomy was made in the bowel entering the abdomen. The incision was then deepened down to near the pubic symphysis. Because of this thickened peritoneum and tissue care was taken. As I was dividing the peritoneum, I encountered what I thought would be the bladder higher than normal due to the inflammatory process. Care was taken to avoid any injury to the structure. Next, the small bowel was freed up from multiple inflammatory adhesions throughout the abdominal cavity. There were multiple loops of small bowel adherent in the peritonitis from the perforated sigmoid colon. Although these adhesions were mainly broken up with blunt dissection, but also with cautery carefully avoiding injury to the bowel. Upon entry into the abdominal cavity the enterotomy was then repaired. This first closed transversely using interrupted 3-0 Vicryl suture. Next, interrupted 3-0 silk sutures placed in Lembert fashion was then used to complete the closure. Running the small bowel from the ligament of Treitz down to the terminal ileum, there were 2 areas where there was a tear in the seromuscular portion. These were repaired using interrupted 3-0 silk sutures placed in Lembert fashion. All loculated areas and infections were then broken up and as much of the exudate was removed from the abdominal cavity as possible. This allowed the small bowel to be packed in the upper abdomen for sigmoid colon resection. A DEEPAK-75 stapling device was then placed across the sigmoid colon proximal to the inflamed area and perforated sigmoid colon. Next, the mesentery of the sigmoid colon was divided using LigaSure cautery device staying high up along the wall of the colon to avoid injury to the ureters. This was carried down to the proximal rectum. A contour stapling device was then placed across the sigmoid colon rectal junction. The specimen was then removed. The descending colon would not reach down in the pelvis or even promote for a colostomy as it was not redundant. I decided to mobilize the splenic flexure. The lateral peritoneal fold along the left colon was then divided along with the splenic flexure using the LigaSure cautery device. This allowed full mobilization of the splenic flexure , as well as dividing the omental attachments to the transverse colon. A 31 EE anvil was then inserted into the distal portion of the descending colon after a pursestring suture device was placed. The suture was tied. An EEA stapling device was then brought through the anus and into the rectum and opened with the pointe end then brought through the area where the rectum was divided. The anvil was then attached to the stapling device and the anastomoses were then performed. Air was insufflated in the rectum and no leak was noted. Since this area was inflamed I did not feel that this would be an adequate anastomosis without a protecting ileostomy. The abdominal cavity was then copiously irrigated. Next, a RONALD drain was brought through the left side of his abdominal wall and down in the pelvis and right side where the abscess collections were located. The appendix appeared to be involved in the inflammatory process and needed to be removed. The mesentery of the appendix was then divided using LigaSure cautery device. The base of the appendix doubly ligated using 0 Vicryl suture with his appendix being divided just distal to this. Next, an area where the bowel was without inflammation was then determined in the distal end of the ileum. The distal end from the ileocecal valve proximally for approximately 2 feet was thickened and involved with previous inflammatory process. Therefore, approximately 2 feet proximal ileocecal valve adequate small bowel was then identified that was not inflammed. An opening was then made in the right upper quadrant for the ileostomy. This allowed the small bowel to be brought through the abdominal wall without tension. Also, the peritoneum was extremely thick down the right lower quadrant as previous stated approximately 1 cm, so this would not be an adequate place to pull out the ileostomy. A circular opening was then made in the skin in the right upper quadrant for the ileostomy. The incision was then deepened down to the fascial layer using electrocautery. A cruciate incision was then made in the fascia with the rectus muscle fibers then split. The posterior rectus sheath was then opened and the small bowel for the loop ileostomy was then brought through the opening into the skin. These small bowel, as well as the omentum was then placed in its correct location in the abdomen. Anterior abdominal fascia layer was then closed using running #1 PDS suture. The skin around the umbilicus was then approximated using interrupted 3-0 nylon suture. Moist dressings were then placed in the wound. The ileostomy was then matured using interrupted 3-0 Vicryl sutures and the ostomy bag was then applied. The wound VAC was then placed in the midline abdominal wound. The patient was then awakened, extubated, and taken from the operating room in stable condition. ESTIMATED BLOOD LOSS: 400 mL COMPLICATIONS: None. CONDITION OF THE PATIENT PROCEDURE: Stable. SPECIMENS: Sigmoid colon and appendix and cultures for Gram stain, culture and sensitivities. DRAINS: Packs the wound to have a wound VAC placed and one 19 round RONALD drain was placed intra-abdominally. COMPLICATIONS: There was one enterotomy had been made on entry into the abdomen, which was repaired. Condition of the patient when the procedure was started as patient' s wound is dirty. TD: 06/14/2017 10:06 DESTINEY
[2017-06-14] MEDS: FAMOTIDINE 20 MG/50 ML 50 ML IV SCH ×2 (09:52→21:06)
[2017-06-14] MEDS ORDERED: TPN (CLINIMIX E 5/15) 2,000 ML with MULTIVITAMIN 10 ML IV SCH ×2 (12:00)
[2017-06-14] MEDS: FAT EMULSION 20% 250 ML IV SCH (14:02)
[2017-06-14] MEDS: TRACE ELEMENTS V CONC 1 ML in SODIUM CHLORIDE 0.9% 100ML 100 ML IV SCH (14:03)
--- NOTE | 2017-06-14 14:08 | XRAY Report ---
DATE OF SERVICE: FRONTAL CHEST: 06/14/2017 CLINICAL INDICATION: Line placement. FINDINGS: Frontal view of the chest demonstrates a normal cardiac silhouette. The lungs demonstrate patchy infiltrates or atelectasis. A right arm PICC terminates in the right atrium, approximately 4 cm past the cavoatrial junction. This should be pulled back. Nasogastric tube is incidentally noted. IMPRESSION: RIGHT ARM PICC TERMINATING IN THE RIGHT ATRIUM, APPROXIMATELY 4 CM PAST THE CAVOATRIAL JUNCTION. TD: 06/14/2017 15:07
[2017-06-14] MEDS ORDERED: fentaNYL PCA 500 MCG IV PRN ×2 (14:39→17:43)
--- NOTE | 2017-06-14 14:59 | CONSULTATION NOTE ---
Referring Provider Name of Referring Provider:: Valerio Consult Date: 06/14/17 (called to pull patients epidural catheter. The catheter was pulled with the tip intact.) History - Past Medical History Cardiovascular: reports: None Respiratory: reports: None Neuro: reports: None Endocrine/Autoimmune: reports: None GI: reports: None : reports: None HEENT: reports: None Psych: reports: None Musculoskeletal: reports: None Derm: reports: None Other Past Medical History: Obesity - Family & Social History Family History: Mother: , Cancer (Mother of colon cancer), Father: Alive and Well, Other family: CAD (Grandmother) Living arrangement: At home Living Situation: Alone Social History Notes: The patient was born in [place], [place] but moved with his family to [place] when he was 6 years old and lived there until he was 30 when he joined [email or web address]. He now lives in [place] alone. He is unmarried and has no children he still works at the [employer]. He has never smoked, he is a daily drinker and drinks 2 drinks a night of October. He denies any illicit drug use. - POLST POLST Status: Full Code Meds/Allgy - Home Medications Home Medications: Ambulatory Orders Medication Instructions Recorded Confirmed Bisacodyl [Dulcolax] 10 mg PO BID 06/07/17 06/07/17 Gluc/Oli-MSM#1/Vit C/Bhavesh/Bor 1 - 2 each PO BID 06/07/17 06/07/17 [Kjbwuog-Jvwda-SVK Complex Cplt] Multivitamin,Therapeutic [Thera] 1 each PO DAILY 06/07/17 06/07/17 - Allergies Allergies/Adverse Reactions: Allergies Allergy/AdvReac Type Severity Reaction Status Date / Time wheat Allergy Mild Bloating Verified 06/08/17 08:24 Exam - Vital Signs Vital Signs: Vital Signs x48h Temp Pulse Resp BP Pulse Ox 06/14/17 14:24 36.6 C 06/14/17 14:03 29 H 116/84 H 90 L 06/14/17 13:15 17 115/79 06/14/17 12:54 37.5 C 90 25 H 91 L 06/14/17 12:30 88 30 H 93 06/14/17 11:16 88 30 H 93 06/14/17 10:22 37.5 C 91 24 112/82 H 92 01/15/18 09:10 94 19 124/73 93 06/14/17 08:26 38.2 C H 95 29 H 121/73 94 Conclusion/Plan - Lab Results Lab results reviewed: Yes Fish Bones: 06/14/17 07:00 06/14/17 07:00
--- NOTE | 2017-06-14 15:23 | XRAY Report ---
DATE OF SERVICE: FRONTAL CHEST: 06/14/2017 CLINICAL INDICATION: PICC repositioning. FINDINGS: Frontal view of the chest is compared to previous film of 1150 hours. Right arm PICC now terminates in the distal superior vena cava. Atelectasis has improved. Nasogastric tube is again noted. IMPRESSION: RIGHT ARM PICC TERMINATING IN THE DISTAL SUPERIOR VENA CAVA. TD: 06/14/2017 16:22
[2017-06-14] MEDS: KETOROLAC 30 MG/ML VIAL IVP PRN (16:00)
[2017-06-14] MEDS ORDERED: HYDROmorphone 1 MG/ML SYRINGE IVP SCH (21:41)
[2017-06-14] MEDS: HYDROmorphone PCA 10 MG IV PRN (22:19)
[2017-06-15] MEDS: SODIUM CHLORIDE FLUSH 0.9% 10 ML SYRINGE IVP PRN ×2 (01:51→05:21)
[2017-06-15] MEDS: PIPERACILLIN/TAZOBACTAM 3.375 GM in SODIUM CHLORIDE 0.9% MINIBAG 100 ML IV SCH ×4 (02:00→19:45)
[2017-06-15] MEDS: KETOROLAC 30 MG/ML VIAL IVP PRN (03:45)
[2017-06-15] MEDS: SODIUM CHLORIDE FLUSH 0.9% 10 ML SYRINGE IVP SCH ×3 (05:21→22:28)
[2017-06-15 05:43] LABS: BASOPHILS # (AUTO) 0.1 10^3/uL (0.0-0.1); EOSINOPHILS # (AUTO) 0.3 10^3/uL (0.0-0.7); EOSINOPHILS % (AUTO) 3.1 %; HGB - HEMOGLOBIN 10.9 g/dL (14.0-18.0); LYMPHOCYTES # (AUTO) 1.2 10^3/uL (1.5-3.5); LYMPHOCYTES % (AUTO) 12.3 %; MEAN CORPUSCULAR HEMOGLOBIN 28.4 pg (27.0-31.0); MEAN CORPUSCULAR HGB CONC 32.7 g/dL (32.0-36.0); MEAN PLATELET VOLUME 7.3 fL (7.4-11.4); MONOCYTES # (AUTO) 0.8 10^3/uL (0.0-1.0); MONOCYTES % (AUTO) 8.2 %; NEUTROPHILS # (AUTO) 7.4 10^3/uL (1.5-6.6); NEUTROPHILS % (AUTO) 75.4 %; PLT - PLATELET COUNT 372 10^3/uL (130-450); RED BLOOD COUNT 3.84 10^6/uL (4.70-6.10); WHITE BLOOD COUNT 9.9 x10^3/uL (4.8-10.8)
[2017-06-15 05:54] LABS: CALCIUM 7.7 mg/dL (8.5-10.3); CREATININE 0.9 mg/dL (0.6-1.2); MAGNESIUM 2.3 mg/dL (1.7-2.8); PHOSPHORUS 3.1 mg/dL (2.5-4.6)
[2017-06-15] MEDS: D5NS W/20 MEQ KCL 1,000 ML IV SCH ×3 (06:11→23:59)
[2017-06-15] MEDS: FAMOTIDINE 20 MG/50 ML 50 ML IV SCH ×2 (09:27→20:30)
[2017-06-15] MEDS ORDERED: SODIUM CHLORIDE FLUSH 0.9% 10 ML SYRINGE IVP PRN ×2 (11:14)
[2017-06-15] MEDS ORDERED: PHENOL THROAT SPRAY 177 ML MM PRN (11:15)
[2017-06-15] MEDS ORDERED: BENZOCAINE/MENTHOL LOZENGE MM PRN (11:15)
[2017-06-15] MEDS: TRACE ELEMENTS V CONC 1 ML in SODIUM CHLORIDE 0.9% 100ML 100 ML IV SCH (11:56)
[2017-06-15] MEDS: FAT EMULSION 20% 250 ML IV SCH (11:56)
[2017-06-15] MEDS ORDERED: TPN (CLINIMIX E 5/15) 2,000 ML with MULTIVITAMIN 10 ML IV SCH ×2 (12:00)
[2017-06-15] MEDS: HYDROmorphone PCA 10 MG IV PRN (12:45)
--- NOTE | 2017-06-15 17:54 | PROVIDER PROGRESS NOTE ---
Subjective - Prog Note Date Prog Note Date: 06/15/17 Prog Note Time: 17:52 - Subjective Pt reports feeling: Improved (Patient's pain is significantly improved from yesterday.) Current Medications - Current Medications Current Medications: Acetaminophen, TPN, Pepcid, Dilaudid, Toradol, Nubain, Zofran, Chloraseptic, Zosyn, Phenergan, and Cepacol. Objective - Vital Signs/Intake & Output Reviewed Vital Signs: Yes Vital Signs: Vital Signs Pulse Resp BP Pulse Ox 06/15/17 17:00 81 14 134/102 H 96 06/15/17 15:00 78 11 L 118/87 H 95 06/15/17 14:00 79 10 L 116/89 H 92 Intake & Output: Intake & Output 06/12/17 06/13/17 06/14/17 06/15/17 23:59 23:59 23:59 23:59 Intake Total 1842 7331.550 0262.333 3171.91 Output Total 1690 3028 2397 Balance 1842 62.833 925.333 774.91 - Objective General Appearance: positive: No acute distress, Alert Eyes Bilateral: positive: Normal inspection, PERRL, EOMI, No lid inflammation, Conjunctivae nml, No scleral icterus ENT: positive: ENT inspection nml, Pharynx nml, No signs of dehydration. negative: Purulent nasal drainage, Pharyngeal erythema, Oral lesions Neck: positive: Nml inspection, Thyroid nml, No JVD, Trachea midline Respiratory: positive: Chest non-tender, No respiratory distress, Breath sounds nml. negative: Wheezes, Rales, Rhonchi Cardiovascular: positive: Regular rate & rhythm, No murmur, No gallop Abdomen: positive: Non-tender, No organomegaly, Nml bowel sounds, No distention. negative: Guarding, Rebound Back: positive: Nml inspection. negative: CVA tenderness (R), CVA tenderness (L ) Skin: positive: Color nml, No rash, Warm, Dry. negative: Skin rash Extremities: positive: Non-tender, Full ROM, Nml appearance Neurologic/Psychiatric: positive: Oriented x3, CN's nml (2-12), Motor nml, Sensation nml, Mood/affect nml - Lab Results Fish Bones: 06/15/17 05:25 06/15/17 05:25 Other Labs: Lab Results x24hrs 06/15/17 06/15/17 06/15/17 Range/Units 10:42 05:25 05:25 WBC 9.9 (4.8-10.8) x10^3/uL RBC 3.84 L (4.70-6.10) 10^6/uL Hgb 10.9 L (14.0-18.0) g/dL Hct 33.4 L (42.0-52.0) % MCV 87.0 (80.0-94.0) fL MCH 28.4 (27.0-31.0) pg MCHC 32.7 (32.0-36.0) g/dL RDW 15.0 (12.0-15.0) % Plt Count 372 (130-450) 10^3/uL MPV 7.3 L (7.4-11.4) fL Neut # 7.4 H (1.5-6.6) 10^3/uL Lymph # 1.2 L (1.5-3.5) 10^3/uL [place] # 0.8 (0.0-1.0) 10^3/uL Eos # 0.3 (0.0-0.7) 10^3/uL Baso # 0.1 (0.0-0.1) 10^3/uL Absolute Nucleated RBC 0.01 x10^3/uL Nucleated RBC % 0.1 /100WBC Sodium (135-145) mmol/L Potassium (3.5-5.0) mmol/L Chloride (101-111) mmol/L Carbon Dioxide (21-32) mmol/L Anion Gap (6-13) BUN (6-20) mg/dL Creatinine (0.6-1.2) mg/dL Estimated GFR (MDRD) (>89) Glucose (70-100) mg/dL POC Whole Bld Glucose 143 H (70 - 100) mg/dL Calcium (8.5-10.3) mg/dL Phosphorus (2.5-4.6) mg/dL Magnesium (1.7-2.8) mg/dL Albumin 2.4 L (3.2-5.5) g/dL 06/15/17 Range/Units 05:25 WBC (4.8-10.8) x10^3/uL RBC (4.70-6.10) 10^6/uL Hgb (14.0-18.0) g/dL Hct (42.0-52.0) % MCV (80.0-94.0) fL MCH (27.0-31.0) pg MCHC (32.0-36.0) g/dL RDW (12.0-15.0) % Plt Count (130-450) 10^3/uL MPV (7.4-11.4) fL Neut # (1.5-6.6) 10^3/uL Lymph # (1.5-3.5) 10^3/uL [place] # (0.0-1.0) 10^3/uL Eos # (0.0-0.7) 10^3/uL Baso # (0.0-0.1) 10^3/uL Absolute Nucleated RBC x10^3/uL Nucleated RBC % /100WBC Sodium 141 (135-145) mmol/L Potassium 3.8 (3.5-5.0) mmol/L Chloride 106 (101-111) mmol/L Carbon Dioxide 27 (21-32) mmol/L Anion Gap 8.0 (6-13) BUN 6 (6-20) mg/dL Creatinine 0.9 (0.6-1.2) mg/dL Estimated GFR (MDRD) 92 (>89) Glucose 143 H (70-100) mg/dL POC Whole Bld Glucose (70 - 100) mg/dL Calcium 7.7 L (8.5-10.3) mg/dL Phosphorus 3.1 (2.5-4.6) mg/dL Magnesium 2.3 (1.7-2.8) mg/dL Albumin (3.2-5.5) g/dL - Diagnostic Imaging Diagnostic Imaging Results: positive: Final report reviewed Diagnostic Imaging Comments: EXAM: CT ABDOMEN AND PELVIS EXAM DATE: 06/06/2017 04:08 PM. CLINICAL HISTORY: Pelvic pain followed by epigastric pain . COMPARISONS: None. TECHNIQUE: Routine helical CT imaging was performed through the abdomen and pelvis. IV contrast: 100ML OF ISOVUE 300. Enteric contrast: No. Reconstructions: Coronal and sagittal. In accordance with CT protocol optimization, one or more of the following dose reduction techniques were utilized for this exam: automated exposure control, adjustment of mA and/or KV based on patient size, or use of iterative reconstructive technique. FINDINGS: Lung Bases: Unremarkable. Liver: There is a 0.7 cm low-density lesion in segment 4 of the liver which is too small to characterize. Liver vessels are patent. Gallbladder/Bile Ducts: Unremarkable. Spleen: Normal. Pancreas: Normal. Adrenal Glands: Normal. Kidneys: There is a 0.6 cm low-density lesion in the left kidney which is too small to characterize but most likely a cyst. Peritoneal Cavity/Bowel: There is a focal inflammatory process in the central pelvis around the sigmoid colon. There are multiple diverticula. There is a significant degree of fat stranding. There is a very small amount of fluid. There is no free air. No bowel obstruction. Pelvic Organs: Urinary bladder is empty. Vasculature: No aneurysms or other significant abnormality. Bones: There is degenerative disease of the lumbar spine. Other: None. IMPRESSION: 1. Acute inflammation of sigmoid colon consistent with acute diverticulitis. Small free fluid in pelvis. No drainable abscess. 2. No bowel obstruction. 3. Tiny liver and renal hypodensities which are probably cysts. CT ABDOMEN AND PELVIS WITH CONTRAST: 06/09/2017 CLINICAL INDICATION: Followup diverticulitis, continued fevers TECHNIQUE: Axial CT images of the abdomen and pelvis were obtained with 100 mL Isovue 300 intravenously as well as oral contrast. COMPARISON: CT of 06/06/2017. FINDINGS: Limited evaluation of the lung bases demonstrates a trace right effusion and bibasilar infiltrates or atelectasis. ABDOMEN: Liver, spleen, pancreas, kidneys and adrenal glands appear unremarkable. The gallbladder is not dilated. No bowel dilatation, free gas, or free fluid is present in the abdomen. No definite adenopathy. PELVIS: A small amount of free fluid is present in the pelvis. There are new small foci of extraluminal gas around the mid sigmoid colon anteriorly and superiorly as it passes over the urinary bladder, compatible with localized perforation. Inflammation in this region appears similar to previous. No drainable abscess collection is appreciated. Osseous structures demonstrate degenerative changes. IMPRESSION: LOCALIZED PERFORATION AROUND THE MID SIGMOID COLON. NO DRAINABLE ABSCESS COLLECTION. In accordance with CT protocol optimization, one or more of the following dose reduction techniques were utilized for this exam: automated exposure control, adjustment of mA and/or KV based on patient size, or use of iterative reconstructive technique. EXAM: CT ABDOMEN AND PELVIS EXAM DATE: 06/12/2017 11:58 AM. CLINICAL HISTORY: Followup of left lower quadrant diverticulitis. COMPARISONS: 06/09/2017. TECHNIQUE: Routine helical CT imaging was performed through the abdomen and pelvis. IV contrast: 100ML OF ISOVUE 300. Enteric contrast: No. Reconstructions: Coronal and sagittal. In accordance with CT protocol optimization, one or more of the following dose reduction techniques were utilized for this exam: automated exposure control, adjustment of mA and/or KV based on patient size, or use of iterative reconstructive technique. FINDINGS: Lung Bases: Small right pleural effusion and right basilar opacity, decreased since last exam. The prior small left pleural effusion and left basilar opacity are no longer visualized. Liver: The cystic focus in segment 4, 4 mm unchanged. No masses. Gallbladder/Bile Ducts: Unremarkable. Spleen: 14.6 cm in longest dimension, previously 15.6 cm. Pancreas: Normal. Adrenal Glands: Normal. Kidneys: No stone, masses or hydronephrosis. Peritoneal Cavity/Bowel: 1. There is colon diverticulosis. There is again thickened bowel wall with adjacent fat stranding in the mid-proximal sigmoid colon, the small abscess containing gas and fluid abutting the anterior portion of the proximal sigmoid colon measured 1.5 x 1.8 cm, previously 2.2 x 1.9 cm. 2. The loculated fluid, likely abscess formation, in the right lower lateral to the right lower medial abdomen in L-shape again noted, approximately 2.7 x 8 cm of the horizontal portion and 3 x 6.6 cm of the vertical portion, and the loculated fluid with slight hyperenhanced wall in cul-de- sac measured 3.3 x 7.6 x 4.1 cm, without significant interval changes. 3. There are again ill-defined foci of small calcified densities abutting the base of the cecum, without well visualized appendix. 4. No new loculated fluid, free air or adenopathy. 5. The remainder of the colon and small bowel demonstrate no dilatation or acute inflammatory process. Pelvic Organs: There is new thickened wall, 0.7 to 1.7 cm in thickness focally with adjacent fat stranding in the anterior dome of the bladder which maintained small clear fat plane between the sigmoid colon; there is no bladder filling defect or stone. The rectum is within normal limits. Vasculature: No aneurysms or other significant abnormality. Bones: No significant abnormality. IMPRESSION: 1. Sigmoid diverticulitis with interval slight decrease in size of the small abscess abutting the cranial portion of the proximal sigmoid colon. 2. No significant interval changes of the complex fluid collection, likely abscess formation, one in the lower lateral right abdomen to the medial abdomen and one in the cul-de- sac. 3. No significant interval changes of the ill-defined foci of small calcified densities abutting the base of the cecum, without well visualized appendix. 4. Negative for bowel obstruction. 5. New focal thickened bladder wall in the anterior dome area which has small clear fat plane between the sigmoid colon, suggesting new cystitis versus less likely secondary changes from the sigmoid diverticulitis, otherwise nonspecific. 6. Interval less prominent splenomegaly, nonspecific finding; negative for cirrhosis or adenopathy. Assessment/Plan - Problem List (1) Sigmoid diverticulitis Impression: Patient is status postop day 2, improving significantly. His pain is much better managed today and he has been up ambulating laps in the hallway.His ileus persists. (2) Protein-calorie malnutrition, mild Impression: The patient is now on TPN while we wait for his ileus to resolve. (3) Postoperative pain Impression: Much better since he was switched from fentanyl to Dilaudid.He has been able to ambulate and move around in his bed much easier.
--- NOTE | 2017-06-15 22:05 | PROVIDER PROGRESS NOTE ---
Subjective - General Admit Date: 06/06/17 Procedure Performed: Laparotomy, sigmoid resection, ostomy - Review of Systems Gastrointestinal: positive: Other (c/o abdominal pain secondary to surgery) Musculoskeletal: positive: Other (c/o decreased strength left foot) Objective - Patient Data Vital Signs: Vital Signs x48h Temp Pulse Resp BP Pulse Ox 06/15/17 21:00 77 22 132/101 H 94 06/15/17 19:31 22 06/15/17 19:28 36.8 C 82 28 H 98 06/15/17 19:00 78 19 132/96 H 96 06/15/17 17:53 84 22 132/103 H 95 06/15/17 17:44 16 06/15/17 17:00 81 14 134/102 H 96 06/15/17 15:00 78 11 L 118/87 H 95 Weight: Weight 06/13/17 06/14/17 06/15/17 23:59 23:59 23:59 Weight (kg) 127 kg 126.5 kg 124.1 kg Intake & Output: Intake and Output Totals x24h 06/13/17 06/14/17 06/15/17 23:59 23:59 23:59 Intake Total 9984.024 5877.333 3949.743 Output Total 1690 3028 3967 Balance 62.833 925.333 -17.257 - Lab Results Lab Results: 06/15/17 05:25 06/15/17 05:25 Other Lab Results: Lab Results x24hrs 06/15/17 06/15/17 06/15/17 Range/Units 19:17 10:42 05:25 WBC (4.8-10.8) x10^3/uL RBC (4.70-6.10) 10^6/uL Hgb (14.0-18.0) g/dL Hct (42.0-52.0) % MCV (80.0-94.0) fL MCH (27.0-31.0) pg MCHC (32.0-36.0) g/dL RDW (12.0-15.0) % Plt Count (130-450) 10^3/uL MPV (7.4-11.4) fL Neut # (1.5-6.6) 10^3/uL Lymph # (1.5-3.5) 10^3/uL [place] # (0.0-1.0) 10^3/uL Eos # (0.0-0.7) 10^3/uL Baso # (0.0-0.1) 10^3/uL Absolute Nucleated RBC x10^3/uL Nucleated RBC % /100WBC Sodium (135-145) mmol/L Potassium (3.5-5.0) mmol/L Chloride (101-111) mmol/L Carbon Dioxide (21-32) mmol/L Anion Gap (6-13) BUN (6-20) mg/dL Creatinine (0.6-1.2) mg/dL Estimated GFR (MDRD) (>89) Glucose (70-100) mg/dL POC Whole Bld Glucose 134 H 143 H (70 - 100) mg/dL Calcium (8.5-10.3) mg/dL Phosphorus (2.5-4.6) mg/dL Magnesium (1.7-2.8) mg/dL Albumin 2.4 L (3.2-5.5) g/dL 06/15/17 06/15/17 Range/Units 05:25 05:25 WBC 9.9 (4.8-10.8) x10^3/uL RBC 3.84 L (4.70-6.10) 10^6/uL Hgb 10.9 L (14.0-18.0) g/dL Hct 33.4 L (42.0-52.0) % MCV 87.0 (80.0-94.0) fL MCH 28.4 (27.0-31.0) pg MCHC 32.7 (32.0-36.0) g/dL RDW 15.0 (12.0-15.0) % Plt Count 372 (130-450) 10^3/uL MPV 7.3 L (7.4-11.4) fL Neut # 7.4 H (1.5-6.6) 10^3/uL Lymph # 1.2 L (1.5-3.5) 10^3/uL [place] # 0.8 (0.0-1.0) 10^3/uL Eos # 0.3 (0.0-0.7) 10^3/uL Baso # 0.1 (0.0-0.1) 10^3/uL Absolute Nucleated RBC 0.01 x10^3/uL Nucleated RBC % 0.1 /100WBC Sodium 141 (135-145) mmol/L Potassium 3.8 (3.5-5.0) mmol/L Chloride 106 (101-111) mmol/L Carbon Dioxide 27 (21-32) mmol/L Anion Gap 8.0 (6-13) BUN 6 (6-20) mg/dL Creatinine 0.9 (0.6-1.2) mg/dL Estimated GFR (MDRD) 92 (>89) Glucose 143 H (70-100) mg/dL POC Whole Bld Glucose (70 - 100) mg/dL Calcium 7.7 L (8.5-10.3) mg/dL Phosphorus 3.1 (2.5-4.6) mg/dL Magnesium 2.3 (1.7-2.8) mg/dL Albumin (3.2-5.5) g/dL - Current Medications Current Medications: Current Medications Generic Name Dose Route Start Last Admin Trade Name Freq PRN Reason Stop Dose Admin Hydromorphone HCl 0 mg 06/14/17 21:40 06/15/17 12:45 Dilaudid Flitch Hanger (Use Flitch Hanger Order Set) 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 Administration PAIN Protocol Piperacillin Sod/Tazobactam 100 mls @ 200 mls/hr 06/12/17 20:00 06/15/17 20: 28 Sod 3.375 gm/ Sodium Chloride IV Infused Q6H [facility] Infusion Potassium Chloride/Dextrose/Sod Cl 1,000 mls @ 125 mls/hr 06/13/17 17:00 14:22 IV 125 mls/hr .Q8H [facility] Administration Acetaminophen 100 mls @ 400 mls/hr 06/13/17 20:40 06/14/17 16:09 Ofirmev IV Infused Q6H PRN Infusion Pain or Fever > 38C (100.4F) Famotidine 50 mls @ 100 mls/hr 06/14/17 09:00 06/15/17 20:30 Pepcid 20 Mg/50 Ml IV 100 mls/hr BID CRUZ Administration Fat Emulsion Intravenous 250 mls @ 21 mls/hr 06/14/17 12:00 06/15/17 11:56 Intralipid 20% IV 21 mls/hr Q24H [facility] Administration Multivitamins 10 ml/ Amino Ac/ 2,010 mls @ 83 mls/hr 06/15/17 12:00 06/15/17 20:05 Electrol/Dextrose/Calcium IV 06/16/17 08:59 100 mls/hr Q21H [facility] Infusion Protocol Chromium/Copper/Manganese/ 101 mls @ 4.2 mls/hr 06/14/17 12:00 06/15/17 11:56 Seleni/Zn 1 ml/ Sodium IV 4.2 mls/hr Chloride Q24H CURZ Administration Ketorolac Tromethamine 30 mg 06/14/17 15:36 06/15/17 03:45 Toradol Inj IVP 06/19/17 15:35 30 mg Q6HR PRN Administration PAIN Sodium Chloride 10 ml 06/06/17 16:56 06/15/17 05:21 Normal Saline Flush 0.9% IVP 30 ml PRN PRN Administration NEEDED PER PROVIDER ORDERS Sodium Chloride 10 ml 06/06/17 22:00 06/15/17 13:15 Normal Saline Flush 0.9% IVP Not Given Q8HR CRUZ Sodium Chloride 20 ml 06/15/17 11:14 06/15/17 11:58 Normal Saline Flush 0.9% IVP 20 ml PRN PRN Administration After TPN or Blood Draw Throat Lozenges 1 lozenge 06/15/17 11:15 06/15/17 12:37 Cepacol MM 1 lozenge Q2HR PRN Administration Throat pain - Physical Exam Abdomen: positive: Other (wound vac in place, ostomy viable with stool in bag.) Extremities: positive: Other (decreased motion left foot with normal sensation) Impression/Plan - Problem List Problem List: s/p sigmoid colon resection with diverting ileostomy POD#1. Ileostomy viable. Pain not fully controlled with epidural. Hgb stable. Anesthesia to evaluate epidural for pain control and decrease motor function left leg. Continue iv antibiotics Start TPn for malnutrition Mobilize patient.. Continue NGT as still having bilious output despite output from Ileostomy
--- NOTE | 2017-06-15 23:01 | PROVIDER PROGRESS NOTE ---
Subjective - General Admit Date: 06/06/17 Procedure Date: 06/13/17 Post Op Days: 2 Procedure Performed: Laparotomy, sigmoid resection, ostomy - Review of Systems Gastrointestinal: positive: Other (c/o abdominal pain secondary to surgery improved with assisted living nursing director) Musculoskeletal: positive: Other (normal strength, motor, sensation in lower extremities) Objective - Patient Data Vital Signs: Vital Signs x48h Temp Pulse Resp BP Pulse Ox 06/15/17 22:27 74 13 133/86 H 94 06/15/17 21:00 77 22 132/101 H 94 06/15/17 19:31 22 06/15/17 19:28 36.8 C 82 28 H 98 06/15/17 19:00 78 19 132/96 H 96 06/15/17 17:53 84 22 132/103 H 95 06/15/17 17:44 16 06/15/17 17:00 81 14 134/102 H 96 06/15/17 15:00 78 11 L 118/87 H 95 Weight: Weight 06/13/17 06/14/17 06/15/17 23:59 23:59 23:59 Weight (kg) 127 kg 126.5 kg 124.1 kg Intake & Output: Intake and Output Totals x24h 06/13/17 06/14/17 06/15/17 23:59 23:59 23:59 Intake Total 2186.852 7913.333 3999.743 Output Total 1690 3028 4047 Balance 62.833 925.333 -47.257 - Lab Results Lab Results: 06/15/17 05:25 06/15/17 05:25 Other Lab Results: Lab Results x24hrs 06/15/17 06/15/17 06/15/17 Range/Units 19:17 10:42 05:25 WBC (4.8-10.8) x10^3/uL RBC (4.70-6.10) 10^6/uL Hgb (14.0-18.0) g/dL Hct (42.0-52.0) % MCV (80.0-94.0) fL MCH (27.0-31.0) pg MCHC (32.0-36.0) g/dL RDW (12.0-15.0) % Plt Count (130-450) 10^3/uL MPV (7.4-11.4) fL Neut # (1.5-6.6) 10^3/uL Lymph # (1.5-3.5) 10^3/uL [place] # (0.0-1.0) 10^3/uL Eos # (0.0-0.7) 10^3/uL Baso # (0.0-0.1) 10^3/uL Absolute Nucleated RBC x10^3/uL Nucleated RBC % /100WBC Sodium (135-145) mmol/L Potassium (3.5-5.0) mmol/L Chloride (101-111) mmol/L Carbon Dioxide (21-32) mmol/L Anion Gap (6-13) BUN (6-20) mg/dL Creatinine (0.6-1.2) mg/dL Estimated GFR (MDRD) (>89) Glucose (70-100) mg/dL POC Whole Bld Glucose 134 H 143 H (70 - 100) mg/dL Calcium (8.5-10.3) mg/dL Phosphorus (2.5-4.6) mg/dL Magnesium (1.7-2.8) mg/dL Albumin 2.4 L (3.2-5.5) g/dL 06/15/17 06/15/17 Range/Units 05:25 05:25 WBC 9.9 (4.8-10.8) x10^3/uL RBC 3.84 L (4.70-6.10) 10^6/uL Hgb 10.9 L (14.0-18.0) g/dL Hct 33.4 L (42.0-52.0) % MCV 87.0 (80.0-94.0) fL MCH 28.4 (27.0-31.0) pg MCHC 32.7 (32.0-36.0) g/dL RDW 15.0 (12.0-15.0) % Plt Count 372 (130-450) 10^3/uL MPV 7.3 L (7.4-11.4) fL Neut # 7.4 H (1.5-6.6) 10^3/uL Lymph # 1.2 L (1.5-3.5) 10^3/uL [place] # 0.8 (0.0-1.0) 10^3/uL Eos # 0.3 (0.0-0.7) 10^3/uL Baso # 0.1 (0.0-0.1) 10^3/uL Absolute Nucleated RBC 0.01 x10^3/uL Nucleated RBC % 0.1 /100WBC Sodium 141 (135-145) mmol/L Potassium 3.8 (3.5-5.0) mmol/L Chloride 106 (101-111) mmol/L Carbon Dioxide 27 (21-32) mmol/L Anion Gap 8.0 (6-13) BUN 6 (6-20) mg/dL Creatinine 0.9 (0.6-1.2) mg/dL Estimated GFR (MDRD) 92 (>89) Glucose 143 H (70-100) mg/dL POC Whole Bld Glucose (70 - 100) mg/dL Calcium 7.7 L (8.5-10.3) mg/dL Phosphorus 3.1 (2.5-4.6) mg/dL Magnesium 2.3 (1.7-2.8) mg/dL Albumin (3.2-5.5) g/dL - Current Medications Current Medications: Current Medications Generic Name Dose Route Start Last Admin Trade Name Freq PRN Reason Stop Dose Admin Hydromorphone HCl 0 mg 06/14/17 21:40 06/15/17 12:45 Dilaudid Disability Aide (Use Disability Aide Order Set) IV 10 mg 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 Administration PAIN Protocol Piperacillin Sod/Tazobactam 100 mls @ 200 mls/hr 06/12/17 20:00 06/15/17 20: 28 Sod 3.375 gm/ Sodium Chloride IV Infused Q6H [facility] Infusion Potassium Chloride/Dextrose/Sod Cl 1,000 mls @ 125 mls/hr 06/13/17 17:00 14:22 IV 125 mls/hr .Q8H [facility] Administration Acetaminophen 100 mls @ 400 mls/hr 06/13/17 20:40 06/14/17 16:09 Ofirmev IV Infused Q6H PRN Infusion Pain or Fever > 38C (100.4F) Famotidine 50 mls @ 100 mls/hr 06/14/17 09:00 06/15/17 21:00 Pepcid 20 Mg/50 Ml IV Infused BID CRUZ Infusion Fat Emulsion Intravenous 250 mls @ 21 mls/hr 06/14/17 12:00 06/15/17 11:56 Intralipid 20% IV 21 mls/hr Q24H [facility] Administration Multivitamins 10 ml/ Amino Ac/ 2,010 mls @ 83 mls/hr 06/15/17 12:00 06/15/17 20:05 Electrol/Dextrose/Calcium IV 06/16/17 08:59 100 mls/hr Q21H [facility] Infusion Protocol Chromium/Copper/Manganese/ 101 mls @ 4.2 mls/hr 06/14/17 12:00 06/15/17 11:56 Seleni/Zn 1 ml/ Sodium IV 4.2 mls/hr Chloride Q24H [facility] Administration Ketorolac Tromethamine 30 mg 06/14/17 15:36 06/15/17 03:45 Toradol Inj IVP 06/19/17 15:35 30 mg Q6HR PRN Administration PAIN Sodium Chloride 10 ml 06/06/17 16:56 06/15/17 05:21 Normal Saline Flush 0.9% IVP 30 ml PRN PRN Administration NEEDED PER PROVIDER ORDERS Sodium Chloride 10 ml 06/06/17 22:00 06/15/17 22:28 Normal Saline Flush 0.9% IVP 10 ml Q8HR CRUZ Administration Sodium Chloride 20 ml 06/15/17 11:14 06/15/17 11:58 Normal Saline Flush 0.9% IVP 20 ml PRN PRN Administration After TPN or Blood Draw Throat Lozenges 1 lozenge 06/15/17 11:15 06/15/17 12:37 Cepacol MM 1 lozenge Q2HR PRN Administration Throat pain - Physical Exam Abdomen: positive: Other (ostomy viable with stool in bag. wound vac in place) Extremities: positive: Other (normal motor, sensation lower extremities) Impression/Plan - Problem List Problem List: s/p sigmoid resection with diverting ileostomy Pod#2. Now up in chair. No further neurological issues with epidural stopped. continue NGT wound vac change in am ostomy care continue iv antibiotics continue tpn
[2017-06-16] MEDS: PIPERACILLIN/TAZOBACTAM 3.375 GM in SODIUM CHLORIDE 0.9% MINIBAG 100 ML IV SCH ×4 (02:04→20:23)
[2017-06-16] MEDS: D5NS W/20 MEQ KCL 1,000 ML IV SCH ×3 (02:09→17:01)
[2017-06-16 05:00] LABS: BASOPHILS % (AUTO) 0.5 %; EOSINOPHILS # (AUTO) 0.3 10^3/uL (0.0-0.7); EOSINOPHILS % (AUTO) 4.4 %; HGB - HEMOGLOBIN 10.2 g/dL (14.0-18.0); LYMPHOCYTES # (AUTO) 1.3 10^3/uL (1.5-3.5); LYMPHOCYTES % (AUTO) 17.6 %; MEAN CORPUSCULAR HEMOGLOBIN 28.8 pg (27.0-31.0); MEAN CORPUSCULAR HGB CONC 33.2 g/dL (32.0-36.0); MEAN CORPUSCULAR VOLUME 86.8 fL (80.0-94.0); MEAN PLATELET VOLUME 7.5 fL (7.4-11.4); MONOCYTES # (AUTO) 0.6 10^3/uL (0.0-1.0); MONOCYTES % (AUTO) 8.1 %; NEUTROPHILS % (AUTO) 69.4 %; PLT - PLATELET COUNT 370 10^3/uL (130-450); RED BLOOD COUNT 3.55 10^6/uL (4.70-6.10); WHITE BLOOD COUNT 7.2 x10^3/uL (4.8-10.8)
[2017-06-16 05:13] LABS: ALBUMIN 2.4 g/dL (3.2-5.5); CREATININE 0.7 mg/dL (0.6-1.2); PHOSPHORUS 4.1 mg/dL (2.5-4.6)
[2017-06-16] MEDS: SODIUM CHLORIDE FLUSH 0.9% 10 ML SYRINGE IVP SCH ×3 (06:17→21:10)
[2017-06-16] MEDS: TPN (CLINIMIX E 5/15) 2,000 ML with MULTIVITAMIN 10 ML IV SCH ×2 (09:05)
[2017-06-16] MEDS: FAMOTIDINE 20 MG/50 ML 50 ML IV SCH ×2 (09:30→21:09)
[2017-06-16] MEDS: HYDROmorphone PCA 10 MG IV PRN (09:43)
[2017-06-16] MEDS: FAT EMULSION 20% 250 ML IV SCH (11:41)
[2017-06-16] MEDS: TRACE ELEMENTS V CONC 1 ML in SODIUM CHLORIDE 0.9% 100ML 100 ML IV SCH (11:42)
[2017-06-16] MEDS: ACETAMINOPHEN 1,000 MG/100 ML 100 ML IV PRN (12:00)
--- NOTE | 2017-06-16 13:00 | PROVIDER PROGRESS NOTE ---
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) Musculoskeletal: positive: Other (normal strength, motor, sensation in lower extremities) Objective - Patient Data Vital Signs: Vital Signs x48h Temp Pulse Resp BP Pulse Ox 06/16/17 12:00 37.6 C H 84 12 132/101 H 96 06/16/17 10:00 73 20 133/97 H 96 06/16/17 09:00 37.4 C 71 13 138/107 H 98 06/16/17 08:00 77 12 149/109 H 94 06/16/17 07:00 74 13 133/84 H 95 06/16/17 06:11 18 06/16/17 06:00 68 11 L 140/87 H 97 06/16/17 05:00 71 12 129/92 H 93 Weight: Weight 06/14/17 06/15/17 06/16/17 23:59 23:59 23:59 Weight (kg) 126.5 kg 124.1 kg 127.5 kg Intake & Output: Intake and Output Totals x24h 06/14/17 06/15/17 06/16/17 23:59 23:59 23:59 Intake Total 4380.333 4999.743 4017.994 Output Total 3028 4147 2650 Balance 1352.333 751.197 6960.994 - Lab Results Lab Results: 06/16/17 04:20 06/16/17 04:20 Other Lab Results: Lab Results x24hrs 06/16/17 06/16/17 06/16/17 Range/Units 12:30 04:20 04:20 WBC 7.2 (4.8-10.8) x10^3/uL RBC 3.55 L (4.70-6.10) 10^6/uL Hgb 10.2 L (14.0-18.0) g/dL Hct 30.8 L (42.0-52.0) % MCV 86.8 (80.0-94.0) fL MCH 28.8 (27.0-31.0) pg MCHC 33.2 (32.0-36.0) g/dL RDW 15.0 (12.0-15.0) % Plt Count 370 (130-450) 10^3/uL MPV 7.5 (7.4-11.4) fL Neut # 5.0 (1.5-6.6) 10^3/uL Lymph # 1.3 L (1.5-3.5) 10^3/uL [place] # 0.6 (0.0-1.0) 10^3/uL Eos # 0.3 (0.0-0.7) 10^3/uL Baso # 0.0 (0.0-0.1) 10^3/uL Absolute Nucleated RBC 0.00 x10^3/uL Nucleated RBC % 0.1 /100WBC Sodium 143 (135-145) mmol/L Potassium 3.7 (3.5-5.0) mmol/L Chloride 105 (101-111) mmol/L Carbon Dioxide 28 (21-32) mmol/L Anion Gap 10.0 (6-13) BUN 10 (6-20) mg/dL Creatinine 0.7 (0.6-1.2) mg/dL Estimated GFR (MDRD) 123 (>89) Glucose 134 H (70-100) mg/dL POC Whole Bld Glucose 118 H (70 - 100) mg/dL Calcium 8.0 L (8.5-10.3) mg/dL Phosphorus 4.1 (2.5-4.6) mg/dL Magnesium 2.0 (1.7-2.8) mg/dL Albumin 2.4 L (3.2-5.5) g/dL 06/16/17 06/15/17 Range/Units 00:31 19:17 WBC (4.8-10.8) x10^3/uL RBC (4.70-6.10) 10^6/uL Hgb (14.0-18.0) g/dL Hct (42.0-52.0) % MCV (80.0-94.0) fL MCH (27.0-31.0) pg MCHC (32.0-36.0) g/dL RDW (12.0-15.0) % Plt Count (130-450) 10^3/uL MPV (7.4-11.4) fL Neut # (1.5-6.6) 10^3/uL Lymph # (1.5-3.5) 10^3/uL [place] # (0.0-1.0) 10^3/uL Eos # (0.0-0.7) 10^3/uL Baso # (0.0-0.1) 10^3/uL Absolute Nucleated RBC x10^3/uL Nucleated RBC % /100WBC Sodium (135-145) mmol/L Potassium (3.5-5.0) mmol/L Chloride (101-111) mmol/L Carbon Dioxide (21-32) mmol/L Anion Gap (6-13) BUN (6-20) mg/dL Creatinine (0.6-1.2) mg/dL Estimated GFR (MDRD) (>89) Glucose (70-100) mg/dL POC Whole Bld Glucose 119 H 134 H (70 - 100) mg/dL Calcium (8.5-10.3) mg/dL Phosphorus (2.5-4.6) mg/dL Magnesium (1.7-2.8) mg/dL Albumin (3.2-5.5) g/dL - Current Medications Current Medications: Current Medications Generic Name Dose Route Start Last Admin Trade Name Freq PRN Reason Stop Dose Admin Hydromorphone HCl 0 mg 06/14/17 21:40 06/16/17 09:43 Dilaudid Show Horse Driver (Use Show Horse Driver Order Set) IV 10 mg PUMP OPERATOR BYPRODUCTS PRN Administration PAIN Protocol Piperacillin Sod/Tazobactam 100 mls @ 200 mls/hr 06/12/17 20:00 06/16/17 08: 40 Sod 3.375 gm/ Sodium Chloride IV Infused Q6H [facility] Infusion Potassium Chloride/Dextrose/Sod Cl 1,000 mls @ 125 mls/hr 06/13/17 17:00 12:00 IV 125 mls/hr .Q8H [facility]UZ Infusion Acetaminophen 100 mls @ 400 mls/hr 06/13/17 20:40 06/16/17 12:20 Ofirmev IV Infused Q6H PRN Infusion Pain or Fever > 38C (100.4F) Famotidine 50 mls @ 100 mls/hr 06/14/17 09:00 06/16/17 10:05 Pepcid 20 Mg/50 Ml IV Infused BID CRUZ Infusion Fat Emulsion Intravenous 250 mls @ 21 mls/hr 06/14/17 12:00 06/16/17 12:00 Intralipid 20% IV 21 mls/hr Q24H [facility] Infusion Multivitamins 10 ml/ Amino Ac/ 2,010 mls @ 100 mls/hr 06/16/17 09:00 12:00 Electrol/Dextrose/Calcium IV 100 mls/hr Q20H [facility] Infusion Protocol Chromium/Copper/Manganese/ 101 mls @ 4.2 mls/hr 06/14/17 12:00 06/16/17 12:00 Seleni/Zn 1 ml/ Sodium IV 4.2 mls/hr Chloride Q24H [facility] Infusion Ketorolac Tromethamine 30 mg 06/14/17 15:36 06/15/17 03:45 Toradol Inj IVP 06/19/17 15:35 30 mg Q6HR PRN Administration PAIN Sodium Chloride 10 ml 06/06/17 16:56 06/15/17 05:21 Normal Saline Flush 0.9% IVP 30 ml PRN PRN Administration NEEDED PER PROVIDER ORDERS Sodium Chloride 10 ml 06/06/17 22:00 06/16/17 06:17 Normal Saline Flush 0.9% IVP 30 ml Q8HR CRUZ Administration Sodium Chloride 20 ml 06/15/17 11:14 06/15/17 11:58 Normal Saline Flush 0.9% IVP 20 ml PRN PRN Administration After TPN or Blood Draw Throat Lozenges 1 lozenge 06/15/17 11:15 06/15/17 12:37 Cepacol MM 1 lozenge Q2HR PRN Administration Throat pain - Physical Exam Wound/Incisions: positive: Other (wound vac in place) Abdomen: positive: Other (ostomy viable with stool) Impression/Plan - Problem List Problem List: Clamp NGT and check residuals Keep edmond in one more day as he is not mobile enough with all the devices being connected to him. Continue tpn/iv antibiotics wound vac change today
[2017-06-16] MEDS: HEPARIN 5,000 UNIT/ML VIAL SUBQ SCH ×2 (14:10→20:23)
[2017-06-16] MEDS: SODIUM CHLORIDE FLUSH 0.9% 10 ML SYRINGE IVP PRN (14:21)
--- NOTE | 2017-06-16 15:38 | PROVIDER PROGRESS NOTE ---
Subjective - Prog Note Date Prog Note Date: 06/16/17 Prog Note Time: 15:36 - Subjective Pt reports feeling: Improved Subjective: Patient states that he slept fairly well last night his pain is well-managed and he denies any new problems. He has not had any bowel movement or gas production to this point.He is breathing easily and has not had any fevers. Current Medications - Current Medications Current Medications: Tylenol, TPN, Pepcid, heparin, Dilaudid, Toradol, Nubain, Zofran, Chloraseptic, Cepacol, Compazine, Zosyn, normal saline, potassium chloride Objective - Vital Signs/Intake & Output Reviewed Vital Signs: Yes Vital Signs: Vital Signs Temp Pulse Resp BP Pulse Ox 06/16/17 12:00 37.6 C H 84 12 132/101 H 96 Intake & Output: Intake & Output 06/13/17 06/14/17 06/15/17 06/16/17 23:59 23:59 23:59 23:59 Intake Total 2813.865 5366.333 4999.743 4816.427 Output Total 1690 3028 4147 2960 Balance 62.833 1352.333 580.966 8409.427 - Objective General Appearance: positive: No acute distress, Alert Eyes Bilateral: positive: Normal inspection, PERRL, EOMI ENT: positive: ENT inspection nml, Pharynx nml, No signs of dehydration Neck: positive: Nml inspection, Thyroid nml, No JVD, Trachea midline. negative : Thyromegaly Respiratory: positive: Chest non-tender, No respiratory distress, Breath sounds nml. negative: Wheezes, Rales, Rhonchi Cardiovascular: positive: Regular rate & rhythm, No murmur, No gallop Abdomen: positive: Non-tender, No organomegaly, Nml bowel sounds, No distention. negative: Guarding, Rebound, Hepatomegaly, Splenomegaly, Mass Back: positive: Nml inspection. negative: CVA tenderness (R), CVA tenderness (L ) Skin: positive: Color nml, No rash, Warm, Dry. negative: Cyanosis Extremities: positive: Non-tender, Full ROM, Nml appearance, No pedal edema Neurologic/Psychiatric: positive: Oriented x3, CN's nml (2-12), Motor nml, Sensation nml, Mood/affect nml - Lab Results Fish Bones: 06/16/17 04:20 06/16/17 04:20 Other Labs: Lab Results x24hrs 06/16/17 06/16/17 06/16/17 Range/Units 12:30 04:20 04:20 WBC 7.2 (4.8-10.8) x10^3/uL RBC 3.55 L (4.70-6.10) 10^6/uL Hgb 10.2 L (14.0-18.0) g/dL Hct 30.8 L (42.0-52.0) % MCV 86.8 (80.0-94.0) fL MCH 28.8 (27.0-31.0) pg MCHC 33.2 (32.0-36.0) g/dL RDW 15.0 (12.0-15.0) % Plt Count 370 (130-450) 10^3/uL MPV 7.5 (7.4-11.4) fL Neut # 5.0 (1.5-6.6) 10^3/uL Lymph # 1.3 L (1.5-3.5) 10^3/uL [place] # 0.6 (0.0-1.0) 10^3/uL Eos # 0.3 (0.0-0.7) 10^3/uL Baso # 0.0 (0.0-0.1) 10^3/uL Absolute Nucleated RBC 0.00 x10^3/uL Nucleated RBC % 0.1 /100WBC Sodium 143 (135-145) mmol/L Potassium 3.7 (3.5-5.0) mmol/L Chloride 105 (101-111) mmol/L Carbon Dioxide 28 (21-32) mmol/L Anion Gap 10.0 (6-13) BUN 10 (6-20) mg/dL Creatinine 0.7 (0.6-1.2) mg/dL Estimated GFR (MDRD) 123 (>89) Glucose 134 H (70-100) mg/dL POC Whole Bld Glucose 118 H (70 - 100) mg/dL Calcium 8.0 L (8.5-10.3) mg/dL Phosphorus 4.1 (2.5-4.6) mg/dL Magnesium 2.0 (1.7-2.8) mg/dL Albumin 2.4 L (3.2-5.5) g/dL 06/16/17 06/15/17 Range/Units 00:31 19:17 WBC (4.8-10.8) x10^3/uL RBC (4.70-6.10) 10^6/uL Hgb (14.0-18.0) g/dL Hct (42.0-52.0) % MCV (80.0-94.0) fL MCH (27.0-31.0) pg MCHC (32.0-36.0) g/dL RDW (12.0-15.0) % Plt Count (130-450) 10^3/uL MPV (7.4-11.4) fL Neut # (1.5-6.6) 10^3/uL Lymph # (1.5-3.5) 10^3/uL [place] # (0.0-1.0) 10^3/uL Eos # (0.0-0.7) 10^3/uL Baso # (0.0-0.1) 10^3/uL Absolute Nucleated RBC x10^3/uL Nucleated RBC % /100WBC Sodium (135-145) mmol/L Potassium (3.5-5.0) mmol/L Chloride (101-111) mmol/L Carbon Dioxide (21-32) mmol/L Anion Gap (6-13) BUN (6-20) mg/dL Creatinine (0.6-1.2) mg/dL Estimated GFR (MDRD) (>89) Glucose (70-100) mg/dL POC Whole Bld Glucose 119 H 134 H (70 - 100) mg/dL Calcium (8.5-10.3) mg/dL Phosphorus (2.5-4.6) mg/dL Magnesium (1.7-2.8) mg/dL Albumin (3.2-5.5) g/dL - Diagnostic Imaging Diagnostic Imaging Results: positive: Final report reviewed
[2017-06-16] MEDS ORDERED: INSULIN GLARGINE 300 UNIT/3 ML PEN SUBQ ONE (19:07)
[2017-06-17] MEDS: PIPERACILLIN/TAZOBACTAM 3.375 GM in SODIUM CHLORIDE 0.9% MINIBAG 100 ML IV SCH ×4 (02:05→19:37)
[2017-06-17] MEDS: D5NS W/20 MEQ KCL 1,000 ML IV SCH ×2 (02:08→08:45)
[2017-06-17 04:51] LABS: BASOPHILS # (AUTO) 0.1 10^3/uL (0.0-0.1); BASOPHILS % (AUTO) 1.9 %; EOSINOPHILS # (AUTO) 0.3 10^3/uL (0.0-0.7); EOSINOPHILS % (AUTO) 4.8 %; HGB - HEMOGLOBIN 10.5 g/dL (14.0-18.0); LYMPHOCYTES % (AUTO) 15.5 %; MEAN CORPUSCULAR HEMOGLOBIN 28.4 pg (27.0-31.0); MEAN CORPUSCULAR HGB CONC 33.1 g/dL (32.0-36.0); MEAN CORPUSCULAR VOLUME 85.7 fL (80.0-94.0); MEAN PLATELET VOLUME 7.1 fL (7.4-11.4); MONOCYTES # (AUTO) 0.4 10^3/uL (0.0-1.0); MONOCYTES % (AUTO) 6.7 %; NEUTROPHILS # (AUTO) 4.6 10^3/uL (1.5-6.6); NEUTROPHILS % (AUTO) 71.1 %; PLT - PLATELET COUNT 409 10^3/uL (130-450); RED BLOOD COUNT 3.71 10^6/uL (4.70-6.10); RED CELL DISTRIBUTION WIDTH 14.5 % (12.0-15.0); WHITE BLOOD COUNT 6.5 x10^3/uL (4.8-10.8)
[2017-06-17 05:00] LABS: ALBUMIN 2.4 g/dL (3.2-5.5); CALCIUM 8.2 mg/dL (8.5-10.3); CREATININE 0.7 mg/dL (0.6-1.2); MAGNESIUM 1.7 mg/dL (1.7-2.8); PHOSPHORUS 4.5 mg/dL (2.5-4.6)
[2017-06-17] MEDS: TPN (CLINIMIX E 5/15) 2,000 ML with MULTIVITAMIN 10 ML IV SCH ×2 (06:03)
[2017-06-17] MEDS: SODIUM CHLORIDE FLUSH 0.9% 10 ML SYRINGE IVP SCH ×3 (06:03→20:33)
[2017-06-17] MEDS: FAMOTIDINE 20 MG/50 ML 50 ML IV SCH ×2 (08:30→20:33)
[2017-06-17] MEDS: HEPARIN 5,000 UNIT/ML VIAL SUBQ SCH ×2 (08:38→20:33)
[2017-06-17] MEDS: HYDROmorphone PCA 10 MG IV PRN (11:37)
[2017-06-17] MEDS: FAT EMULSION 20% 250 ML IV SCH (12:15)
[2017-06-17] MEDS: TRACE ELEMENTS V CONC 1 ML in SODIUM CHLORIDE 0.9% 100ML 100 ML IV SCH (12:19)
--- NOTE | 2017-06-17 13:24 | PROVIDER PROGRESS NOTE ---
Subjective - Prog Note Date Prog Note Date: 06/17/17 Prog Note Time: 13:23 - Subjective Pt reports feeling: Improved Current Medications - Current Medications Current Medications: Tylenol, TPN, Pepcid, heparin, Dilaudid, Toradol, Nubain, Zofran, Chloraseptic, Cepacol, Compazine, Zosyn, normal saline, potassium chloride Objective - Vital Signs/Intake & Output Reviewed Vital Signs: Yes Vital Signs: Vital Signs Temp Pulse Resp BP Pulse Ox 06/17/17 12:00 36.9 C 79 14 130/85 H 100 06/17/17 11:00 14 Intake & Output: Intake & Output 06/14/17 06/15/17 06/16/17 06/17/17 23:59 23:59 23:59 23:59 Intake Total 4380.333 4999.743 5850.561 3932.143 Output Total 3028 4147 3630 2500 Balance 1352.333 802.588 7539.561 1432.143 - Objective General Appearance: positive: No acute distress, Alert Eyes Bilateral: positive: Normal inspection, PERRL, EOMI, No lid inflammation, Conjunctivae nml, No scleral icterus ENT: positive: ENT inspection nml, Pharynx nml, No signs of dehydration. negative: Pharyngeal erythema, Oral lesions Neck: positive: Nml inspection, Thyroid nml, No JVD, Trachea midline. negative : Thyromegaly Respiratory: positive: Chest non-tender, No respiratory distress, Breath sounds nml. negative: Wheezes, Rales, Rhonchi Cardiovascular: positive: Regular rate & rhythm, No murmur, No gallop. negative : Tachycardia, Bradycardia, Systolic murmur, Diastolic murmur Abdomen: positive: No organomegaly, Nml bowel sounds, Tenderness Back: positive: Nml inspection. negative: CVA tenderness (R), CVA tenderness (L ) Skin: positive: Color nml, No rash, Warm, Dry. negative: Cyanosis Extremities: positive: Non-tender, Full ROM, Nml appearance. negative: Joint swelling Neurologic/Psychiatric: positive: Oriented x3, CN's nml (2-12), Motor nml, Sensation nml, Mood/affect nml - Lab Results Fish Bones: 06/17/17 04:30 06/17/17 04:30 Other Labs: Lab Results x24hrs 06/17/17 06/17/17 06/17/17 Range/Units 04:30 04:30 00:23 WBC 6.5 (4.8-10.8) x10^3/uL RBC 3.71 L (4.70-6.10) 10^6/uL Hgb 10.5 L (14.0-18.0) g/dL Hct 31.8 L (42.0-52.0) % MCV 85.7 (80.0-94.0) fL MCH 28.4 (27.0-31.0) pg MCHC 33.1 (32.0-36.0) g/dL RDW 14.5 (12.0-15.0) % Plt Count 409 (130-450) 10^3/uL MPV 7.1 L (7.4-11.4) fL Neut # 4.6 (1.5-6.6) 10^3/uL Lymph # 1.0 L (1.5-3.5) 10^3/uL Charlton # 0.4 (0.0-1.0) 10^3/uL Eos # 0.3 (0.0-0.7) 10^3/uL Baso # 0.1 (0.0-0.1) 10^3/uL Absolute Nucleated RBC 0.00 x10^3/uL Nucleated RBC % 0.0 /100WBC Sodium 137 (135-145) mmol/L Potassium 3.9 (3.5-5.0) mmol/L Chloride 103 (101-111) mmol/L Carbon Dioxide 28 (21-32) mmol/L Anion Gap 6.0 (6-13) BUN 12 (6-20) mg/dL Creatinine 0.7 (0.6-1.2) mg/dL Estimated GFR (MDRD) 123 (>89) Glucose 122 H (70-100) mg/dL POC Whole Bld Glucose 129 H (70 - 100) mg/dL Calcium 8.2 L (8.5-10.3) mg/dL Phosphorus 4.5 (2.5-4.6) mg/dL Magnesium 1.7 (1.7-2.8) mg/dL Albumin 2.4 L (3.2-5.5) g/dL 06/16/17 Range/Units 16:51 WBC (4.8-10.8) x10^3/uL RBC (4.70-6.10) 10^6/uL Hgb (14.0-18.0) g/dL Hct (42.0-52.0) % MCV (80.0-94.0) fL MCH (27.0-31.0) pg MCHC (32.0-36.0) g/dL RDW (12.0-15.0) % Plt Count (130-450) 10^3/uL MPV (7.4-11.4) fL Neut # (1.5-6.6) 10^3/uL Lymph # (1.5-3.5) 10^3/uL Charlton # (0.0-1.0) 10^3/uL Eos # (0.0-0.7) 10^3/uL Baso # (0.0-0.1) 10^3/uL Absolute Nucleated RBC x10^3/uL Nucleated RBC % /100WBC Sodium (135-145) mmol/L Potassium (3.5-5.0) mmol/L Chloride (101-111) mmol/L Carbon Dioxide (21-32) mmol/L Anion Gap (6-13) BUN (6-20) mg/dL Creatinine (0.6-1.2) mg/dL Estimated GFR (MDRD) (>89) Glucose (70-100) mg/dL POC Whole Bld Glucose 102 H (70 - 100) mg/dL Calcium (8.5-10.3) mg/dL Phosphorus (2.5-4.6) mg/dL Magnesium (1.7-2.8) mg/dL Albumin (3.2-5.5) g/dL Assessment/Plan - Problem List (1) Sigmoid diverticulitis Impression: The patient continues to slowly improve. He has been walking several times a day around the pond and today he has been passing gas and has bowel sounds in all 4 quadrants. We will therefore start him on a clear liquid diet and if he tolerates this we will advance this to a full regular diet. (2) Protein-calorie malnutrition, mild Impression: Despite being relatively young and healthy the patient has protein calorie malnutrition which is apparently related to severe dieting. The patient has been cautioned that he should Increase his protein intake if he is going to continue to diet. (3) Postoperative pain Impression: We will managed with SOUND ART INSTRUCTOR pump Dilaudid.
[2017-06-18] MEDS: PIPERACILLIN/TAZOBACTAM 3.375 GM in SODIUM CHLORIDE 0.9% MINIBAG 100 ML IV SCH ×4 (02:14→20:19)
[2017-06-18] MEDS: D5NS W/20 MEQ KCL 1,000 ML IV SCH (03:37)
[2017-06-18] MEDS: SODIUM CHLORIDE FLUSH 0.9% 10 ML SYRINGE IVP SCH ×3 (05:50→21:17)
[2017-06-18] MEDS ORDERED: oxyCOD/ACETAMIN 5 MG/325 MG TABLET PO PRN (08:43)
[2017-06-18] MEDS ORDERED: HYDROmorphone 1 MG/ML SYRINGE IVP PRN ×2 (08:44)
[2017-06-18] MEDS: HEPARIN 5,000 UNIT/ML VIAL SUBQ SCH ×2 (08:59→21:16)
[2017-06-18] MEDS: FAMOTIDINE 20 MG/50 ML 50 ML IV SCH ×2 (09:00→21:16)
[2017-06-18] MEDS: oxyCOD/ACETAMIN 5 MG/325 MG TABLET PO PRN ×2 (09:00→18:58)
--- NOTE | 2017-06-18 12:31 | PROVIDER PROGRESS NOTE ---
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 with environmental construction engineer) Musculoskeletal: positive: Other (normal strength, motor, sensation in lower extremities) Objective - Patient Data Vital Signs: Vital Signs x48h Temp Pulse Resp BP Pulse Ox 06/18/17 08:00 20 06/18/17 07:55 37.5 C 66 20 126/92 H 94 Weight: Weight 06/16/17 06/17/17 06/18/17 23:59 23:59 23:59 Weight (kg) 127.5 kg 124 kg Intake & Output: Intake and Output Totals x24h 06/16/17 06/17/17 06/18/17 23:59 23:59 23:59 Intake Total 5850.561 5563.343 2058.397 Output Total 3630 4990 2130 Balance 2220.561 573.343 -71.603 - Lab Results Lab Results: 06/17/17 04:30 06/17/17 04:30 Other Lab Results: Lab Results x24hrs 06/18/17 06/18/17 06/17/17 Range/Units 06:17 05:45 23:44 POC Whole Bld Glucose 109 H 82 (70 - 100) mg/dL Albumin 2.7 L (3.2-5.5) g/dL 06/17/17 Range/Units 17:26 POC Whole Bld Glucose 101 H (70 - 100) mg/dL Albumin (3.2-5.5) g/dL - Current Medications Current Medications: Current Medications Generic Name Dose Route Start Last Admin Trade Name Freq PRN Reason Stop Dose Admin Heparin Sodium (Porcine) 5,000 unit 06/16/17 13:00 06/18/17 08:59 SUBQ 5,000 unit BID CRUZ Administration Hydromorphone HCl 1 mg 06/18/17 08:44 06/18/17 11:22 Dilaudid Inj Syringe IVP 1 mg Q2H PRN Administration Abdominal Pain Piperacillin Sod/Tazobactam 100 mls @ 200 mls/hr 06/12/17 20:00 06/18/17 08: 30 Sod 3.375 gm/ Sodium Chloride IV Infused Q6H CRUZ Infusion Acetaminophen 100 mls @ 400 mls/hr 06/13/17 20:40 06/16/17 12:20 Ofirmev IV Infused Q6H PRN Infusion Pain or Fever > 38C (100.4F) Famotidine 50 mls @ 100 mls/hr 06/14/17 09:00 06/18/17 09:36 Pepcid 20 Mg/50 Ml IV Infused BID CRUZ Infusion Ketorolac Tromethamine 30 mg 06/14/17 15:36 06/15/17 03:45 Toradol Inj IVP 06/19/17 15:35 30 mg Q6HR PRN Administration PAIN Oxycodone/Acetaminophen 2 tab 06/18/17 08:43 06/18/17 09:00 Percocet 5 Mg/325 Mg PO 2 tab Q4HR PRN Administration PAIN Sodium Chloride 10 ml 06/06/17 16:56 06/16/17 14:21 Normal Saline Flush 0.9% IVP 10 ml PRN PRN Administration NEEDED PER PROVIDER ORDERS Sodium Chloride 10 ml 06/06/17 22:00 06/18/17 05:50 Normal Saline Flush 0.9% IVP Not Given Q8HR CRUZ Sodium Chloride 20 ml 06/15/17 11:14 06/15/17 11:58 Normal Saline Flush 0.9% IVP 20 ml PRN PRN Administration After TPN or Blood Draw Throat Lozenges 1 lozenge 06/15/17 11:15 06/15/17 12:37 Cepacol MM 1 lozenge Q2HR PRN Administration Throat pain - Physical Exam Wound/Incisions: positive: Other (wound vac in place) Abdomen: positive: Other (ostomy viable) Impression/Plan - Problem List Problem List: POD#5 from sigmoid resection with anastomosis and diverting ileostomy. Starting on regular diet. Will decrease tpn as oral intake improves. Switch to oral pain medication Teach ostomy care continue wound vac Decrease tpn as oral intake increases.
--- NOTE | 2017-06-18 14:09 | PROVIDER PROGRESS NOTE ---
Subjective - Prog Note Date Prog Note Date: 06/18/17 Prog Note Time: 14:07 - Subjective Pt reports feeling: Improved (Patient's pain is well-managed and improved over several days ago and he has been up ambulating several times daily.) Current Medications - Current Medications Current Medications: Tylenol, TPN, Pepcid, heparin, Dilaudid, Toradol, Nubain, Zofran, Chloraseptic, Cepacol, Compazine, Zosyn, normal saline, potassium chloride Objective - Vital Signs/Intake & Output Reviewed Vital Signs: Yes Vital Signs: Vital Signs x48h Temp Pulse Resp BP Pulse Ox 06/18/17 08:00 20 06/18/17 07:55 37.5 C 66 20 126/92 H 94 Intake & Output: Intake & Output 06/15/17 06/16/17 06/17/17 06/18/17 23:59 23:59 23:59 23:59 Intake Total 4999.743 5850.561 5563.343 2298.397 Output Total 4147 3630 4990 2130 Balance 249.483 8350.561 573.343 168.397 - Objective General Appearance: positive: No acute distress, Alert Eyes Bilateral: positive: Normal inspection, PERRL, EOMI, No lid inflammation, Conjunctivae nml, No scleral icterus ENT: positive: ENT inspection nml, Pharynx nml, No signs of dehydration. negative: Purulent nasal drainage, Pharyngeal erythema, Oral lesions Neck: positive: Nml inspection, Thyroid nml, No JVD, Trachea midline. negative : Thyromegaly Respiratory: positive: Chest non-tender, No respiratory distress, Breath sounds nml. negative: Wheezes, Rales, Rhonchi Cardiovascular: positive: Regular rate & rhythm, No murmur, No gallop, Irregularly irregular, Extrasystoles Abdomen: positive: Non-tender, No organomegaly, Nml bowel sounds, No distention. negative: Tenderness Back: positive: Nml inspection. negative: CVA tenderness (R), CVA tenderness (L ) Skin: positive: Color nml, No rash, Warm, Dry, Cyanosis Extremities: positive: Non-tender, Full ROM, Nml appearance Neurologic/Psychiatric: positive: Oriented x3, CN's nml (2-12), Motor nml, Sensation nml, Mood/affect nml - Lab Results Fish Bones: 06/17/17 04:30 06/17/17 04:30 Other Labs: Lab Results x24hrs 06/18/17 06/18/17 06/17/17 Range/Units 06:17 05:45 23:44 POC Whole Bld Glucose 109 H 82 (70 - 100) mg/dL Albumin 2.7 L (3.2-5.5) g/dL 06/17/17 Range/Units 17:26 POC Whole Bld Glucose 101 H (70 - 100) mg/dL Albumin (3.2-5.5) g/dL Assessment/Plan - Problem List (1) Sigmoid diverticulitis Impression: The patient has had surgery and is now doing much better, tolerating clear liquids and had a regular diet today.We will discharge him tomorrow unless there are new problems. (2) Protein-calorie malnutrition, mild Impression: Likely secondary to extensive dieting. Patient has been seen by the social workers and dietitians in an attempt to get him to change his diet. (3) Postoperative pain Impression: Well-managed, continue present care
[2017-06-19] MEDS: PIPERACILLIN/TAZOBACTAM 3.375 GM in SODIUM CHLORIDE 0.9% MINIBAG 100 ML IV SCH ×2 (02:50→09:20)
[2017-06-19] MEDS: SODIUM CHLORIDE FLUSH 0.9% 10 ML SYRINGE IVP PRN ×2 (02:57→03:36)
[2017-06-19] MEDS: SODIUM CHLORIDE FLUSH 0.9% 10 ML SYRINGE IVP SCH (06:59)
[2017-06-19] MEDS: oxyCOD/ACETAMIN 5 MG/325 MG TABLET PO PRN (10:35)
--- NOTE | 2017-06-19 10:50 | Discharge Plan ---
Discharge Plan Disposition: 01 Home, Self Care Condition: Good Prescriptions: oxyCODONE/ACET 5/325 [Percocet 5 mg/325 mg] 1 tab PO Q4HR PRN #14 tablet PRN Reason: Pain Diet: Regular Activity Restrictions: Activity as Tolerated Shower Restrictions: No Driving Restrictions: No Weight Bearing: Full Weight Follow-Up Care: Dietitian No Smoking: If you smoke, Please STOP! Call for help.
[2017-06-19] MEDS: FAMOTIDINE 20 MG/50 ML 50 ML IV SCH (11:10)
[2017-06-19] MEDS: HEPARIN 5,000 UNIT/ML VIAL SUBQ SCH (11:10)
[2017-06-19 15:26] VITALS: BP 117/80
--- NOTE | 2017-06-19 15:52 | DISCHARGE SUMMARY ---
Discharge Summary Admit Date: 06/06/17 Discharge Date: 06/19/17 Discharging Provider: Luda Goodman DO Primary Care Provider: [facility] Code Status: Attempt Resuscitation Condition at Discharge: Good Discharge Disposition: 01 Home, Self Care - DIAGNOSES Admission Diagnoses: 1) Sigmoid diverticulitis 2) Hyperglycemia 3) Hematuria 4) Elevated bilirubin 5) Abnormal CT of the abdomen Discharge Diagnoses with Status of Each Condition: 1) Sigmoid diverticulitis- After several days of testing and resting the bowel the patient underwent a resection of his colon for the sigmoid diverticulitis. He did develop an (expected) ileus following the surgery which has resolved at this time and he is tolerating regular diet. 2) Hyperglycemia- Well-managed while in hospital. 3) Hematuria- Resolved. The CK was wnl and there was no rhabdomyolysis found. 4) Elevated bilirubin- The bilirubin Self corrected and has been within normal limits for most of the patient's stay at the hospital 5) Abnormal CT of the abdomen- This was based on incidental findings which the radiologist believes may be from cysts. These were not followed up on at this time. - HPI History of Present Illness: Patient is a 42-year-old gentleman with a past medical history significant for obesity who presented to the emergency department with a chief complaint of abdominal pain. The patient states that he was in his normal state of health until just 2 days ago when he states he felt a little off. He attributed this feeling to having had a strenuous workout the day prior. He states that he did about 60 minutes on the treadmill. The next day he states he just felt sore specifically in his abdominal cord. He states that he woke up yesterday morning and then began having sharp pain in his lower pelvis. He states that the pain was severe, 8-9 out of 10. He states that it persisted into the afternoon and he took 3 Aleve. He states he did not eat any food with the Aleve and just drank water. After this he states that the pain did improve slightly. Later that evening he tried to sleep but had a very difficult time as he could just not get comfortable because of the pain. States when he got up this morning the pain spread from the lower pelvic area up into the epigastric area. He states the pain was still sharp but it felt as though his abdomen was being squeezed in a vice. He states he tried to change positions live on his back and lie on his front and even lean on the bed to try to alleviate the pain but the pain just would not go away. He states that the pain became a 10 out of 10 and he finally decided to go to the emergency department. The patient denies any nausea or vomiting. He denies having had any fevers chills or night sweats. He does admit to loose stools however he states that he is on a stool softener for edema and has had loose stools for some time. Patient denies any headaches, blurred vision, runny nose, sore throat, nasal congestion, difficulty swallowing, neck pain, neck stiffness, chest pain, shortness of air, orthopnea, PND, increased lower extremity swelling, urinary urgency, urinary frequency, dysuria, joint pains, joint stiffness, joint swelling, muscle aches, back pain, recent unintentional weight loss, changes in his appetite or any focal neurologic deficits. On presentation to the emergency department the patient was afebrile he was tachycardic and hypertensive. He was also slightly tachypneic with respiratory rate of 22 but was saturating well on room air. On presentation he appeared to be in significant distress as he was in a great deal of pain. The patient states that even on the ambulance ride over with any bumps in the road or shaking of his gurney he felt his pain would become more severe. The patient's initial lab work revealed a mildly elevated glucose of 128 and a mildly elevated total bilirubin of 1.3 but otherwise all his electrolytes and LFTs were within normal limits. The patient had a normal lipase and a normal lactic acid. The patient's CBC revealed a WBC of 10.4 with a bandemia of 19%. Given the patient's severe abdominal pain the emergency room physician ordered a CT of his abdomen and pelvis which showed acute inflammation of the sigmoid colon consistent with acute diverticulitis. With small free fluid in the pelvis but no drainable abscess. The patient also was found to have tiny liver and renal hypodensities which looked most likely like cysts. Given the severity of the patient's pain and bandemia with his tachycardia and the fact that the patient just did not look well he was admitted to the hospital for acute diverticulitis. In the emergency room the patient did receive 1 g of IV ceftriaxone, 500 mg of Flagyl, 4 mg of IV Zofran and 1 mg of IV Dilaudid. - HOSPITAL COURSE Hospital Course: The patient was admitted to the hospital and after many days of testing, approximately 1 week after his admission, he underwent abdominal surgery for his diverticulitis. The colon was resected and anastomosed. The patient slowly improved to the point where he was able to take clear liquids 2 days ago and a regular diet yesterday.He is therefore discharged home today. - ALLERGIES Allergies/Adverse Reactions: Allergies Allergy/AdvReac Type Severity Reaction Status Date / Time wheat Allergy Mild Bloating Verified 06/08/17 08:24 - MEDICATIONS Home Medications: Ambulatory Orders Medication Instructions Recorded Confirmed Bisacodyl [Dulcolax] 10 mg PO BID 06/07/17 06/07/17 Gluc/Oli-MSM#1/Vit C/Bhavesh/Bor 1 - 2 each PO BID 06/07/17 06/07/17 [Uiexiks-Teoyh-GCA Complex Cplt] Multivitamin,Therapeutic [Thera] 1 each PO DAILY 06/07/17 06/07/17 oxyCODONE/ACET 5/325 [Percocet 5 1 tab PO Q4HR PRN #14 tablet 06/19/17 mg/325 mg] - PHYSICAL EXAM AT DISCHARGE General Appearance: positive: No acute distress, Alert Eyes Bilateral: positive: Normal inspection, PERRL, EOMI, No lid inflammation, Conjunctivae nml, No scleral icterus ENT: positive: ENT inspection nml, Pharynx nml, No signs of dehydration. negative: Purulent nasal drainage, Pharyngeal erythema Neck: positive: Nml inspection, Thyroid nml, No JVD, Trachea midline. negative : Thyromegaly Respiratory: positive: Chest non-tender, No respiratory distress, Breath sounds nml. negative: Wheezes, Rales, Rhonchi Cardiovascular: positive: Regular rate & rhythm, No murmur, No gallop Peripheral Pulses: positive: 2+ Abdomen: positive: Non-tender, No organomegaly, Nml bowel sounds, No distention. negative: Guarding, Rebound Back: positive: Nml inspection. negative: CVA tenderness (R), CVA tenderness (L ) Skin: positive: Color nml, No rash, Warm. negative: Cyanosis Extremities: positive: Non-tender, Full ROM, Nml appearance, No pedal edema Neurologic/Psychiatric: positive: Oriented x3, Motor nml, Sensation nml, Mood/ affect nml. 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 - TIME SPENT Time Spent in Discharge (Minutes): 45
--- NOTE | 2017-06-20 22:29 | PROVIDER PROGRESS NOTE ---
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) Musculoskeletal: positive: Other (normal strength, motor, sensation in lower extremities) Objective - Patient Data Weight: Weight 06/18/17 06/19/17 06/20/17 23:59 23:59 23:59 Weight (kg) 124 kg 119 kg Intake & Output: Intake and Output Totals x24h 06/18/17 06/19/17 06/20/17 23:59 23:59 23:59 Intake Total 2668.397 640 Output Total 2130 Balance 538.397 640 - Lab Results Lab Results: 06/17/17 04:30 06/17/17 04:30 - Physical Exam Abdomen: positive: Other (wound vac in place ostomy viable) Impression/Plan - Problem List Problem List: s/p sigmoid resection with anastomosis, diverting ileostomy pod#6. Tolerating diet. No evidence of infection. He has been taught ostomy care and has wound vac ready for home. D/c today.
== END 2017-06-19 15:25 | disposition home or self-care (01) | DRG 330 ==
LOC: ED 14:20 → MS3 16:56 → ICU 06-13 12:24 → MS2 06-18 13:51
PROVIDERS: ADMIT Internal Medicine; ATTEND Hospitalist
PROC: 0DJD4ZZ Inspection of Lower Intestinal Tract, Percutaneous Endoscopic Approach (ICD-10-PCS; 2017-06-13)
PROC: 0DTN0ZZ Resection of Sigmoid Colon, Open Approach (ICD-10-PCS; principal; 2017-06-13 08:30)
PROC: 0D1B0Z4 Bypass Ileum to Cutaneous, Open Approach (ICD-10-PCS; 2017-06-13 08:30)
PROC: 0DQ80ZZ Repair Small Intestine, Open Approach (ICD-10-PCS; 2017-06-13 08:30)
PROC: 0DTJ0ZZ Resection of Appendix, Open Approach (ICD-10-PCS; 2017-06-13 08:30)
PROC: 3E0436Z Introduction of Nutritional Substance into Central Vein, Percutaneous Approach (ICD-10-PCS; 2017-06-14)
PROC: 02HV33Z Insertion of Infusion Device into Superior Vena Cava, Percutaneous Approach (ICD-10-PCS; 2017-06-14)
DX: K57.20 Diverticulitis of large intestine with perforation and abscess without bleeding (principal); K91.71 Accidental puncture and laceration of a digestive system organ or structure during a digestive system procedure; E44.1 Mild protein-calorie malnutrition; Y65.8 Other specified misadventures during surgical and medical care; Y92.234 Operating room of hospital as the place of occurrence of the external cause; K66.0 Peritoneal adhesions (postprocedural) (postinfection); E66.9 Obesity, unspecified; E87.6 Hypokalemia; F55.2 Abuse of laxatives; F50.89 Other specified eating disorder; F41.8 Other specified anxiety disorders; Z68.36 Body mass index [BMI] 36.0-36.9, adult
CPT/HCPCS: 36415; 71045; 74177; 80048; 80053; 81001; 81003; 82040; 82550; 83036; 83605; 83690; 83735; 84100; 84134; 85025; 85610; 86850; 86900; 86901; 87070; 87086; 87150; 87205; 88304; 88307; 96361; 96365; 96368; 96375; 96376; 99283; 99285

== ENCOUNTER 2017-06-20 22:01 | Emergency (ER) | payer OTHER ==
--- NOTE | 2017-06-20 22:18 | ED Physician Documentation ---
PD HPI SKIN - Stated complaint Stated Complaint: POST OP OPEN WOUND - Chief complaint Chief Complaint: Wound - History obtained from History obtained from: Patient - History of Present Illness Timing - onset: Yesterday (he has had leaking of the colostomy bag since discharge yesterday. Colostomy nurse was having it stay okay while in the hospital. He is having irritation of the skin from the fluid. No other problems (eating okay, no fever, no vomiting).) Timing - duration: Days (1) Location: Abdomen (having leaking around the colostomy bag with a lot of drainage from the stoma.) Quality / character: Burning Review of Systems Constitutional: denies: Fever GI: denies: Nausea, Vomiting PD PAST MEDICAL HISTORY - Past Medical History Cardiovascular: None Respiratory: None Neuro: None Endocrine/Autoimmune: None GI: None : None HEENT: None Psych: None Musculoskeletal: None Derm: None - Past Surgical History Past Surgical History: No - Present Medications Home Medications: Ambulatory Orders Medication Instructions Recorded Confirmed Bisacodyl [Dulcolax] 10 mg PO BID 06/07/17 06/07/17 Gluc/Oli-MSM#1/Vit C/Bhavesh/Bor 1 - 2 each PO BID 06/07/17 06/07/17 [Pdolyku-Bvimw-XGU Complex Cplt] Multivitamin,Therapeutic [Thera] 1 each PO DAILY 06/07/17 06/07/17 oxyCODONE/ACET 5/325 [Percocet 5 1 tab PO Q4HR PRN #14 tablet 06/19/17 mg/325 mg] - Allergies Allergies/Adverse Reactions: Allergies Allergy/AdvReac Type Severity Reaction Status Date / Time wheat Allergy Mild Bloating Verified 06/20/17 22:54 - Social History Does the pt smoke?: No Smoking Status: Never smoker - POLST POLST Status: Full Code PD ED PE NORMAL - Vitals Vital signs reviewed: Yes - General General: Alert and oriented X 3, No acute distress, Well developed/nourished - Abdomen Abdomen: Normal bowel sounds, Soft, Non tender, Non distended, Other (right lower colostomy site without infection. The current stoma bab is leaking around the base of it. ) Results - Vitals Vitals: Oxygen O2 Source Room air PD MEDICAL DECISION MAKING - ED course Complexity details: considered differential (could not get colostomy bag to stay on without leaking. Really needed nursing care with new supplies. Nurse got one to stay on with base portion and benzoin. Was not leaking. He is to see [facility] on Wednesday for follow up; he could see them tomorrow if needed instead. ), d /w patient Departure - Departure Disposition: Home, Self Care Clinical Impression: Complication of ostomy Condition: Stable Record reviewed to determine appropriate education?: Yes Follow-Up: Seth Yun MD [Provider Admit Priv/Credential] - [facility] [facility] [Provider Group] Comments: Follow-up with the [facility] Wednesday as scheduled if your current ostomy bag is working okay. Otherwise contact him tomorrow for further advice and care. Discharge Date/Time: 06/20/17 23:03
[2017-06-20 23:01] VITALS: BP 134/98
== END 2017-06-20 23:03 | disposition home or self-care (01) ==
LOC: ED 22:01
DX: K94.03 Colostomy malfunction (principal)
CPT/HCPCS: 99282; 99283

== ENCOUNTER 2017-08-09 20:16 | Emergency (ER) | payer OTHER ==
--- NOTE | 2017-08-09 22:17 | ED Physician Documentation ---
PD HPI ABD PAIN - Stated complaint Stated Complaint: MALE - Chief complaint Chief Complaint: Abd Pain - History obtained from History obtained from: Patient - History of Present Illness Timing - onset: Today Timing - details: Gradual onset (he says he has had some protrusion of the ostomy mucosa about an inch or so the past week. Today it started protruding much more, and was causing abd pains/cramps. He noted no stool output the past couple of hours. The size of the mucosa protruding is about a foot long at presentation to ER. He called advise line nurse and was told to come to ER.) Quality: Cramping, Aching Location: All over / everywhere, Periumbilical Associated symptoms: Nausea, Other (today having red colored watery output the past couple hours.). No: Fever, Vomiting Similar symptoms before: Has not had sx before Recently seen: Surgery (ileostomy due to diverticulitis, by Dr. Yun.) Review of Systems Constitutional: denies: Fever, Chills, Myalgias Nose: denies: Rhinorrhea / runny nose, Congestion Throat: denies: Sore throat Cardiac: denies: Chest pain / pressure, Palpitations Respiratory: denies: Dyspnea, Cough GI: reports: Abdominal Pain, Nausea. denies: Vomiting, Diarrhea : denies: Dysuria, Frequency PD PAST MEDICAL HISTORY - Past Medical History Cardiovascular: None Respiratory: None Neuro: None Endocrine/Autoimmune: None GI: Diverticulitis : None HEENT: None Psych: None Musculoskeletal: None Derm: None - Past Surgical History Past Surgical History: Yes General: Bowel surgery, Other - Present Medications Home Medications: Ambulatory Orders Medication Instructions Recorded Confirmed Multivitamin,Therapeutic [Thera] 1 each PO DAILY 06/07/17 06/29/17 oxyCODONE/ACET 5/325 [Percocet 5 1 tab PO Q4HR PRN #14 tablet 06/19/17 06/29/17 mg/325 mg] Cholecalciferol (Vitamin D3) 50,000 unit PO 08/09/17 [Vitamin D] - Allergies Allergies/Adverse Reactions: Allergies Allergy/AdvReac Type Severity Reaction Status Date / Time wheat Allergy Mild Bloating Verified 08/09/17 20:36 - Social History Does the pt smoke?: No Smoking Status: Never smoker Does the pt drink ETOH?: Yes Does the pt have substance abuse?: No - Immunizations Immunizations are current?: Yes - POLST Patient has POLST: No POLST Status: Full Code PD ED PE NORMAL - General General: Alert and oriented X 3, No acute distress, Well developed/nourished - HEENT HEENT: Pharynx benign - Neck Neck: Supple, no meningeal sign, No adenopathy - Cardiac Cardiac: RRR, No murmur - Respiratory Respiratory: Clear bilaterally - Abdomen Abdomen: Soft, Non distended, No organomegaly, Other (ileostomy site with red colored watery output in the bag about 5-10 ml. No stool in bag (he says he changed it couple hours ago). There is prolapse of the intestine about a foot long, with swelling and edema of the tissue. ). No: Normal bowel sounds ( increased) Results - Vitals Vitals: Oxygen O2 Source Room air Procedures - General procedure General procedure: With firm, slow steady pressure on the prolapsed intestine, I slowly reduced it back to intraabdominal after about 3-5 minutes. He has slight cramps with that. After it was back in, then stool output resumed and he was feeling better. PD MEDICAL DECISION MAKING - ED course Complexity details: re-evaluated patient (feeling better after prolapse reduced. ), considered differential, d/w patient, d/w data integrity consultant (Dr. Meeks, who said the bloody watery output should be okay and diminish with the prolapse reduced. To see Dr. Yun tomorrow (or is okay with the ostomy MAC visit scheduled).) Departure - Departure Disposition: 01 Home, Self Care Clinical Impression: Ileostomy prolapse, incarcerated Condition: Stable Record reviewed to determine appropriate education?: Yes Follow-Up: Seth Yun MD [Provider Admit Priv/Credential] - Comments: Drink lots of fluids. Clear liquids diet for a day. [place] [facility] [place] as planned. Call Dr. Yun's office for an appt this week for recheck. I talked with production supply equipment tender Surgeon, who said it should be okay to just see how it does with it reduced and that the weeping of blood should diminish and stop in a day or so. Recheck if worse again. If it starts coming out more again, you can gently pressure it back in like I did. Cool towel or compress on the area this evening when back home for a little while. Discharge Date/Time: 08/09/17 23:12
[2017-08-09 23:13] VITALS: BP 136/77
== END 2017-08-09 23:12 | disposition home or self-care (01) ==
LOC: ED 20:16
DX: K94.19 Other complications of enterostomy (principal)
CPT/HCPCS: 99283; 99284

== ENCOUNTER 2017-08-24 10:05 | Outpatient (CLI) | payer OTHER ==
[2017-08-24 10:36] LABS: BASOPHILS # (AUTO) 0.1 10^3/uL (0.0-0.1); BASOPHILS % (AUTO) 0.8 %; EOSINOPHILS # (AUTO) 0.2 10^3/uL (0.0-0.7); EOSINOPHILS % (AUTO) 3.1 %; HGB - HEMOGLOBIN 14.4 g/dL (14.0-18.0); LYMPHOCYTES # (AUTO) 1.8 10^3/uL (1.5-3.5); LYMPHOCYTES % (AUTO) 27.6 %; MEAN CORPUSCULAR HEMOGLOBIN 29.7 pg (27.0-31.0); MEAN CORPUSCULAR HGB CONC 34.5 g/dL (32.0-36.0); MEAN CORPUSCULAR VOLUME 86.1 fL (80.0-94.0); MEAN PLATELET VOLUME 7.5 fL (7.4-11.4); MONOCYTES # (AUTO) 0.4 10^3/uL (0.0-1.0); MONOCYTES % (AUTO) 6.8 %; NEUTROPHILS % (AUTO) 61.7 %; PLT - PLATELET COUNT 260 10^3/uL (130-450); RED BLOOD COUNT 4.84 10^6/uL (4.70-6.10); RED CELL DISTRIBUTION WIDTH 15.5 % (12.0-15.0); WHITE BLOOD COUNT 6.5 x10^3/uL (4.8-10.8)
[2017-08-24 10:53] LABS: CREATININE 0.8 mg/dL (0.6-1.2)
== END 2017-08-24 10:06 | disposition home or self-care (01) ==
LOC: LAB 10:05
PROVIDERS: ATTEND Registered Nurse
DX: Z01.812 Encounter for preprocedural laboratory examination (principal); K57.20 Diverticulitis of large intestine with perforation and abscess without bleeding
CPT/HCPCS: 36415; 80048; 85025

== ENCOUNTER 2017-09-03 09:15 | Inpatient (IN) | payer OTHER ==
[~2017-09-03 09:15] MED LIST: BUPIVACAINE 0.5% PF 30 ML VIAL ONE
[2017-09-03] MEDS ORDERED: ERTAPENEM 1 GM VIAL ONE (09:33)
[2017-09-03] MEDS ORDERED: LACTATED RINGERS 1,000 ML IV ONE ×2 (10:02→12:19)
[2017-09-03] MEDS ORDERED: BUPIVACAINE 0.5% PF 30 ML VIAL INFIL ONE (11:13)
[2017-09-03] MEDS ORDERED: fentaNYL 250 MCG/5 ML VIAL IVP ONE (12:24)
[2017-09-03] MEDS ORDERED: MORPHINE 10 MG/ML VIAL IVP ONE (12:24)
[2017-09-03] MEDS ORDERED: ONDANSETRON 4 MG/2 ML VIAL IVP ONE (12:24)
[2017-09-03] MEDS ORDERED: ROCURONIUM 50 MG/5 ML VIAL IVP ONE (12:24)
[2017-09-03] MEDS ORDERED: PROPOFOL 200 MG/20 ML VIAL IVP ONE (12:24)
[2017-09-03] MEDS ORDERED: DEXAMETHASONE 4 MG/ML VIAL IVP ONE (12:24)
[2017-09-03] MEDS ORDERED: ACETAMINOPHEN 1,000 MG/100 ML 100 ML IV ONE (12:24)
[2017-09-03] MEDS ORDERED: LIDOCAINE-MPF 2% 5 ML VIAL IM ONE (12:24)
[2017-09-03] MEDS ORDERED: MIDAZOLAM 2 MG/2 ML VIAL IVP ONE (12:24)
[2017-09-03] MEDS: HYDROmorphone 1 MG/ML CARPUJECT ONE ×2 (12:47→12:59)
[2017-09-03] MEDS ORDERED: ONDANSETRON 4 MG/2 ML VIAL IVP PRN (12:51)
[2017-09-03] MEDS ORDERED: LABETALOL 20 MG/4 ML SYRINGE IVP ONE (12:51)
[2017-09-03] MEDS ORDERED: KETOROLAC 15 MG/ML VIAL IVP PRN (12:51)
[2017-09-03] MEDS ORDERED: PROMETHAZINE 25 MG/1 ML VIAL ONE (12:58)
[2017-09-03] MEDS ORDERED: KETOROLAC 30 MG/ML VIAL ONE ×2 (13:04→13:41)
[2017-09-03] MEDS: MORPHINE 10 MG/ML VIAL ONE ×3 (13:07→13:19)
[2017-09-03] MEDS: HYDROmorphone PCA 20MG/100ML IV PRN ×4 (13:24→22:04)
[2017-09-03] MEDS ORDERED: HYDROmorphone 1 MG/ML CARPUJECT ONE (13:32)
[2017-09-03] MEDS: NS W/20 MEQ KCL 1,000 ML IV SCH ×2 (14:08→22:35)
[2017-09-03] MEDS: ACETAMINOPHEN 1,000 MG/100 ML 100 ML IV SCH ×2 (14:44→20:27)
[2017-09-03] MEDS: SODIUM CHLORIDE FLUSH 0.9% 10 ML SYRINGE IVP SCH ×2 (17:28→23:44)
[2017-09-03] MEDS: FAMOTIDINE 20 MG TABLET PO SCH (21:00)
--- NOTE | 2017-09-03 23:23 | OPERATIVE REPORT ---
DATE OF SERVICE: 09/03/2017 Physician: Seth Yun MD PREOPERATIVE DIAGNOSIS: 1. Diverting ileostomy, status post sigmoidectomy with anastomosis due to perforated diverticulitis. 2. Ileostomy prolapse. POSTOPERATIVE DIAGNOSIS: 1. Diverting ileostomy, status post sigmoidectomy with anastomosis due to perforated diverticulitis. 2. Parastomal hernia. 3. Ieostomy prolapse. NAME OF PROCEDURE 1. Ileostomy takedown. 2. Flexible sigmoidoscopy. 3. Repair of parastomal hernia. SURGEON: Seth Yun MD ANESTHESIA: General Endotracheal. ANESTHESIOLOGIST: Dr. Stokes. INDICATIONS FOR PROCEDURE: The patient is a 42-year-old male who presented with perforated diverticulitis with peritonitis 3 months ago. He underwent sigmoid resection, primary colorectal anastomosis, and diverting ileostomy. He had developed a ileostomy prolapse and is now needing to have the ileostomy takedown in order to restore intestinal continuity, as well as removal of the ostomy prolapse. FINDINGS AT PROCEDURE: The patient had a normal colorectal anastomosis on flexible sigmoidoscopy. The patient had a parastomal hernia, in addition to the parastomal prolapse when the ostomy was explored. After freeing up and resecting the ileostomy, a primary [id number], functional end-to-end anastomosis was performed. The parastomal hernia was repaired by excising the large hernia sac and then primary closure of the fascial defect. DESCRIPTION OF PROCEDURE: After informed consent was obtained, the patient was taken to the operating room and placed in the supine position. General endotracheal anesthesia was administered. Flexible sigmoidoscopy was then performed. This is in a separate report. The patient's abdomen was then prepped and draped in the usual sterile fashion. An elliptical incision was then made around the ileostomy through the skin using a scalpel and carried down to the bowel using electrocautery. The small bowel was then freed up circumferentially around the defect in the fascia. The patient had a parastomal hernia with small bowel coming out. The small bowel was freed up enough to bring it up out of the wound, both efferent and afferent limbs in order to create the anastomosis. Stay sutures using 3-0 Vicryl suture were then placed proximally and distally along the efferent and afferent, connecting the 2 bowel fleming. An opening was then made in the bowel wall just proximal and distally along the afferent to the ileostomy and proximal along the efferent to the ileostomy using electrocautery. A [id number]-75 stapling device was then placed with one end in both lumens with the stapler then being engaged, creating a new anastomosis. The opening in the distal end of the anastomosis was then stapled closed. The mesentery of the ileostomy was then clamped, divided, and tied using 3-0 silk sutures serially across. The specimen was then removed. The mesenteric defect was closed using a 3-0 Vicryl suture. The anastomosis was then returned back to the abdominal cavity. The hernia sac was then removed from the subcutaneous tissue using electrocautery. The fascial defect was then closed using a running #1 PDS suture transversely. The wound was irrigated. Hemostasis was obtained using electrocautery. The skin was then approximated using interrupted 4-0 Vicryl subcuticular stitchesfor about one inch on either side of the incision. The wound was then packed with a Betadine gauze, and a dry dressing was placed on top. The patient was then awakened, extubated, and taken from the operating room in stable condition. ESTIMATED BLOOD LOSS: 100 mL COMPLICATIONS: None. CONDITION OF THE PATIENT AT THE END OF THE PROCEDURE: Stable. SPECIMENS: None. DRAINS AND PACKS: The wound was packed open. CLASSIFICATION OF WOUND: Clean/contaminated. TD: 09/03/2017 23:22 MTDD
[2017-09-04] MEDS: ACETAMINOPHEN 1,000 MG/100 ML 100 ML IV SCH ×4 (02:02→20:04)
[2017-09-04 05:15] LABS: BASOPHILS % (AUTO) 0.4 %; EOSINOPHILS % (AUTO) 0.6 %; HGB - HEMOGLOBIN 11.8 g/dL (14.0-18.0); LYMPHOCYTES # (AUTO) 1.7 10^3/uL (1.5-3.5); MEAN CORPUSCULAR HEMOGLOBIN 29.6 pg (27.0-31.0); MEAN CORPUSCULAR HGB CONC 34.2 g/dL (32.0-36.0); MEAN CORPUSCULAR VOLUME 86.7 fL (80.0-94.0); MEAN PLATELET VOLUME 7.2 fL (7.4-11.4); MONOCYTES # (AUTO) 0.6 10^3/uL (0.0-1.0); MONOCYTES % (AUTO) 7.7 %; NEUTROPHILS # (AUTO) 5.9 10^3/uL (1.5-6.6); NEUTROPHILS % (AUTO) 71.3 %; PLT - PLATELET COUNT 227 10^3/uL (130-450); RED BLOOD COUNT 3.98 10^6/uL (4.70-6.10); RED CELL DISTRIBUTION WIDTH 14.8 % (12.0-15.0); WHITE BLOOD COUNT 8.3 x10^3/uL (4.8-10.8)
[2017-09-04 05:33] LABS: CALCIUM 8.2 mg/dL (8.5-10.3); CREATININE 0.8 mg/dL (0.6-1.2)
[2017-09-04] MEDS: NS W/20 MEQ KCL 1,000 ML IV SCH ×3 (06:56→23:08)
[2017-09-04] MEDS: FAMOTIDINE 20 MG TABLET PO SCH ×2 (08:48→20:03)
[2017-09-04] MEDS: SODIUM CHLORIDE FLUSH 0.9% 10 ML SYRINGE IVP SCH ×3 (08:48→23:47)
[2017-09-04] MEDS ORDERED: ERTAPENEM 1 GM in SODIUM CHLORIDE 0.9% MINIBAG 100 ML IV SCH (09:00)
[2017-09-04] MEDS: HEPARIN 5,000 UNIT/ML VIAL SUBQ SCH ×2 (12:20→21:59)
[2017-09-04] MEDS: KETOROLAC 30 MG/ML VIAL IVP PRN ×2 (13:49→20:04)
[2017-09-04] MEDS: SODIUM CHLORIDE FLUSH 0.9% 10 ML SYRINGE IVP PRN (20:04)
--- NOTE | 2017-09-04 21:34 | PROVIDER PROGRESS NOTE ---
Subjective - General Admit Date: 09/03/17 Procedure Date: 09/03/17 Post Op Days: 1 Procedure Performed: Ieostomy Takedown - Review of Systems Gastrointestinal: positive: Other (incisional pain) Objective - Patient Data Vital Signs: Vital Signs x48h Temp Pulse Pulse Resp BP BP Pulse Ox 09/04/17 18:57 16 09/04/17 18:56 37.1 C 71 16 123/80 96 09/04/17 15:47 37.1 C 64 16 120/69 97 09/04/17 15:30 16 09/04/17 14:22 37.0 C 75 20 130/84 H 95 Weight: Weight 09/02/17 09/03/17 09/04/17 23:59 23:59 23:59 Weight (kg) 123.2 kg Intake & Output: Intake and Output Totals x24h 09/02/17 09/03/17 09/04/17 23:59 23:59 23:59 Intake Total 3628.648 5514.334 Output Total 1020 1350 Balance 797.543 2903.334 - Lab Results Lab Results: 09/04/17 04:48 09/04/17 04:48 Other Lab Results: Lab Results x24hrs 09/04/17 09/04/17 Range/Units 04:48 04:48 WBC 8.3 (4.8-10.8) x10^3/uL RBC 3.98 L (4.70-6.10) 10^6/uL Hgb 11.8 L (14.0-18.0) g/dL Hct 34.5 L (42.0-52.0) % MCV 86.7 (80.0-94.0) fL MCH 29.6 (27.0-31.0) pg MCHC 34.2 (32.0-36.0) g/dL RDW 14.8 (12.0-15.0) % Plt Count 227 (130-450) 10^3/uL MPV 7.2 L (7.4-11.4) fL Neut # 5.9 (1.5-6.6) 10^3/uL Lymph # 1.7 (1.5-3.5) 10^3/uL [place] # 0.6 (0.0-1.0) 10^3/uL Eos # 0.0 (0.0-0.7) 10^3/uL Baso # 0.0 (0.0-0.1) 10^3/uL Absolute Nucleated RBC 0.00 x10^3/uL Nucleated RBC % 0.0 /100WBC Sodium 138 (135-145) mmol/L Potassium 4.2 (3.5-5.0) mmol/L Chloride 106 (101-111) mmol/L Carbon Dioxide 28 (21-32) mmol/L Anion Gap 4.0 L (6-13) BUN 13 (6-20) mg/dL Creatinine 0.8 (0.6-1.2) mg/dL Estimated GFR (MDRD) 106 (>89) Glucose 101 H (70-100) mg/dL Calcium 8.2 L (8.5-10.3) mg/dL - Current Medications Current Medications: Current Medications Generic Name Dose Route Start Last Admin Trade Name Freq PRN Reason Stop Dose Admin Famotidine 20 mg 09/03/17 21:00 09/04/17 20:03 Pepcid PO 20 mg BID CRUZ Administration Heparin Sodium (Porcine) 5,000 unit 09/04/17 12:00 09/04/17 12:20 SUBQ 5,000 unit TID CRUZ Administration Acetaminophen 100 mls @ 400 mls/hr 09/03/17 14:00 09/04/17 20:24 Ofirmev IV Infused Q6H CRUZ Infusion Potassium Chloride/Sodium Chloride 1,000 mls @ 125 mls/hr 09/03/17 14:30 12/15 20:26 Normal Saline 0.9% W/20 Meq Kcl IV 125 mls/hr .Q8H CRUZ Infusion Ketorolac Tromethamine 30 mg 09/04/17 12:43 09/04/17 20:04 Toradol Inj IVP 09/08/17 12:50 30 mg Q6H PRN Administration PAIN Sodium Chloride 10 ml 09/03/17 17:00 09/04/17 18:04 Normal Saline Flush 0.9% IVP Not Given 0100,0900,1700 CRUZ Sodium Chloride 10 ml 09/03/17 12:51 09/04/17 20:04 Normal Saline Flush 0.9% IVP 10 ml PRN PRN Administration NEEDED PER PROVIDER ORDERS - Physical Exam Abdomen: positive: Other (Minimal drainage on the abdominal wound guaze) Impression/Plan - Problem List Problem List: s/p ileostomy closure, repair of parastomal hernia POD#1 Start liquids Mobilize patient Change dressing in 1-2 days
[2017-09-04] MEDS: HYDROmorphone PCA 20MG/100ML IV PRN (23:48)
[2017-09-05] MEDS: ACETAMINOPHEN 1,000 MG/100 ML 100 ML IV SCH ×4 (02:04→20:02)
[2017-09-05 05:03] LABS: BASOPHILS % (AUTO) 0.5 %; EOSINOPHILS # (AUTO) 0.2 10^3/uL (0.0-0.7); EOSINOPHILS % (AUTO) 2.6 %; HGB - HEMOGLOBIN 11.4 g/dL (14.0-18.0); LYMPHOCYTES # (AUTO) 1.4 10^3/uL (1.5-3.5); LYMPHOCYTES % (AUTO) 20.8 %; MEAN CORPUSCULAR HEMOGLOBIN 29.1 pg (27.0-31.0); MEAN CORPUSCULAR HGB CONC 33.3 g/dL (32.0-36.0); MEAN CORPUSCULAR VOLUME 87.5 fL (80.0-94.0); MEAN PLATELET VOLUME 7.3 fL (7.4-11.4); MONOCYTES # (AUTO) 0.6 10^3/uL (0.0-1.0); MONOCYTES % (AUTO) 8.4 %; NEUTROPHILS # (AUTO) 4.7 10^3/uL (1.5-6.6); NEUTROPHILS % (AUTO) 67.7 %; PLT - PLATELET COUNT 213 10^3/uL (130-450); RED BLOOD COUNT 3.91 10^6/uL (4.70-6.10); RED CELL DISTRIBUTION WIDTH 14.6 % (12.0-15.0); WHITE BLOOD COUNT 6.9 x10^3/uL (4.8-10.8)
[2017-09-05] MEDS: HEPARIN 5,000 UNIT/ML VIAL SUBQ SCH (06:10)
[2017-09-05] MEDS: SODIUM CHLORIDE FLUSH 0.9% 10 ML SYRINGE IVP PRN (07:39)
[2017-09-05] MEDS: NS W/20 MEQ KCL 1,000 ML IV SCH ×2 (07:48→21:12)
[2017-09-05] MEDS: FAMOTIDINE 20 MG TABLET PO SCH ×2 (08:27→21:15)
[2017-09-05] MEDS: SODIUM CHLORIDE FLUSH 0.9% 10 ML SYRINGE IVP SCH ×2 (08:28→17:34)
[2017-09-05] MEDS ORDERED: LORazepam 2 MG/ML VIAL IVP SCH (12:00)
[2017-09-05] MEDS ORDERED: HYDROmorphone 1 MG/ML CARPUJECT IVP SCH (12:00)
[2017-09-05 13:24] LABS: HGB - HEMOGLOBIN 11.4 g/dL (14.0-18.0)
[2017-09-05] MEDS: HYDROmorphone PCA 20MG/100ML IV PRN ×2 (20:58→21:04)
--- NOTE | 2017-09-05 21:32 | PROVIDER PROGRESS NOTE ---
Subjective - General Admit Date: 09/03/17 Procedure Date: 09/03/17 Post Op Days: 2 Procedure Performed: Ieostomy Takedown - Review of Systems Wound/Incisions: positive: Healing well Gastrointestinal: positive: Flatus, Diarrhea, Other (incisional pain) Objective - Patient Data Vital Signs: Vital Signs x48h Temp Pulse Pulse Resp BP BP Pulse Ox 09/05/17 21:05 16 09/05/17 20:40 37.1 C 09/05/17 19:54 37.7 C H 95 19 136/83 H 96 09/05/17 16:00 36.5 C 86 19 116/73 99 09/05/17 13:47 37.3 C 75 20 123/77 94 09/05/17 13:31 18 Weight: Weight 09/03/17 09/04/17 09/05/17 23:59 23:59 23:59 Weight (kg) 123.2 kg Intake & Output: Intake and Output Totals x24h 09/03/17 09/04/17 09/05/17 23:59 23:59 23:59 Intake Total 2156.787 8974.667 4610.000 Output Total 1020 1550 1900 Balance 724.658 8052.667 2710.000 - Lab Results Lab Results: 09/05/17 12:56 09/04/17 04:48 Other Lab Results: Lab Results x24hrs 09/05/17 09/05/17 Range/Units 12:56 04:40 WBC 6.9 (4.8-10.8) x10^3/uL RBC 3.91 L (4.70-6.10) 10^6/uL Hgb 11.4 L 11.4 L (14.0-18.0) g/dL Hct 32.6 L 34.2 L (42.0-52.0) % MCV 87.5 (80.0-94.0) fL MCH 29.1 (27.0-31.0) pg MCHC 33.3 (32.0-36.0) g/dL RDW 14.6 (12.0-15.0) % Plt Count 213 (130-450) 10^3/uL MPV 7.3 L (7.4-11.4) fL Neut # 4.7 (1.5-6.6) 10^3/uL Lymph # 1.4 L (1.5-3.5) 10^3/uL [place] # 0.6 (0.0-1.0) 10^3/uL Eos # 0.2 (0.0-0.7) 10^3/uL Baso # 0.0 (0.0-0.1) 10^3/uL Absolute Nucleated RBC 0.00 x10^3/uL Nucleated RBC % 0.0 /100WBC - Current Medications Current Medications: Current Medications Generic Name Dose Route Start Last Admin Trade Name Freq PRN Reason Stop Dose Admin Famotidine 20 mg 09/03/17 21:00 09/05/17 21:15 Pepcid PO 20 mg BID CRUZ Administration Hydromorphone HCl 0 mg 09/03/17 18:01 09/05/17 21:04 Dilaudid Pelletizer 20mg/100ml IV 20 mg PRN PRN Administration Abdominal Pain Protocol Acetaminophen 100 mls @ 400 mls/hr 09/03/17 14:00 09/05/17 20:20 Ofirmev IV Infused Q6H CRUZ Infusion Potassium Chloride/Sodium Chloride 1,000 mls @ 75 mls/hr 09/05/17 09:08 09/05 21:12 Normal Saline 0.9% W/20 Meq Kcl IV 75 mls/hr .[id number] CRUZ Administration Ketorolac Tromethamine 30 mg 09/04/17 12:43 09/04/17 20:04 Toradol Inj IVP 09/08/17 12:50 30 mg Q6H PRN Administration PAIN Sodium Chloride 10 ml 09/03/17 17:00 09/05/17 17:34 Normal Saline Flush 0.9% IVP Not Given 0100,0900,1700 CRUZ Sodium Chloride 10 ml 09/03/17 12:51 09/05/17 07:39 Normal Saline Flush 0.9% IVP 10 ml PRN PRN Administration NEEDED PER PROVIDER ORDERS - Physical Exam Respiratory: positive: No respiratory distress Cardiovascular: positive: Regular rate & rhythm Abdomen: positive: Other (open wound clean packing changed) Impression/Plan - Problem List Problem List: Bowel function returning Advance diet Mobilize patient Wound care
[2017-09-06] MEDS: ACETAMINOPHEN 1,000 MG/100 ML 100 ML IV SCH (01:13)
[2017-09-06 04:18] LABS: BASOPHILS % (AUTO) 0.6 %; EOSINOPHILS # (AUTO) 0.2 10^3/uL (0.0-0.7); EOSINOPHILS % (AUTO) 2.4 %; HGB - HEMOGLOBIN 11.9 g/dL (14.0-18.0); LYMPHOCYTES # (AUTO) 1.4 10^3/uL (1.5-3.5); LYMPHOCYTES % (AUTO) 21.7 %; MEAN CORPUSCULAR HEMOGLOBIN 29.8 pg (27.0-31.0); MEAN CORPUSCULAR HGB CONC 34.4 g/dL (32.0-36.0); MEAN CORPUSCULAR VOLUME 86.6 fL (80.0-94.0); MEAN PLATELET VOLUME 6.9 fL (7.4-11.4); MONOCYTES # (AUTO) 0.7 10^3/uL (0.0-1.0); NEUTROPHILS # (AUTO) 4.3 10^3/uL (1.5-6.6); NEUTROPHILS % (AUTO) 65.3 %; PLT - PLATELET COUNT 247 10^3/uL (130-450); RED BLOOD COUNT 3.99 10^6/uL (4.70-6.10); RED CELL DISTRIBUTION WIDTH 13.7 % (12.0-15.0); WHITE BLOOD COUNT 6.6 x10^3/uL (4.8-10.8)
[2017-09-06] MEDS: KETOROLAC 30 MG/ML VIAL IVP PRN (05:52)
[2017-09-06] MEDS ORDERED: oxyCOD/ACETAMIN 5 MG/325 MG TABLET PO PRN (08:30)
[2017-09-06] MEDS ORDERED: HYDROmorphone 1 MG/ML CARPUJECT IVP PRN ×2 (08:33)
[2017-09-06] MEDS: FAMOTIDINE 20 MG TABLET PO SCH ×2 (09:38→22:08)
[2017-09-06] MEDS: DOCUSATE SODIUM 250 MG CAPSULE PO SCH ×2 (09:38→22:08)
[2017-09-06] MEDS: SODIUM CHLORIDE FLUSH 0.9% 10 ML SYRINGE IVP SCH ×3 (09:39→22:10)
[2017-09-06] MEDS: NS W/20 MEQ KCL 1,000 ML IV SCH ×2 (10:39→10:42)
[2017-09-06] MEDS: SODIUM CHLORIDE FLUSH 0.9% 10 ML SYRINGE IVP PRN (13:48)
[2017-09-06] MEDS: oxyCOD/ACETAMIN 5 MG/325 MG TABLET PO PRN ×3 (14:36→22:08)
[2017-09-07] MEDS: oxyCOD/ACETAMIN 5 MG/325 MG TABLET PO PRN ×2 (02:19→06:35)
[2017-09-07] MEDS: SODIUM CHLORIDE FLUSH 0.9% 10 ML SYRINGE IVP SCH ×2 (04:12→09:49)
--- NOTE | 2017-09-07 08:07 | PROVIDER PROGRESS NOTE ---
Subjective - General Admit Date: 09/03/17 Procedure Date: 09/03/17 Post Op Days: 4 Procedure Performed: Ieostomy Takedown - Review of Systems Wound/Incisions: positive: Healing well Gastrointestinal: positive: Flatus, Other (stool more formed today.) Objective - Patient Data Vital Signs: Vital Signs x48h Temp Pulse Resp BP Pulse Ox 09/07/17 00:21 36.9 C 71 18 124/82 H 99 Intake & Output: Intake and Output Totals x24h 09/05/17 09/06/17 09/07/17 23:59 23:59 23:59 Intake Total 4692.500 2068.50 Output Total 1900 3200 801 Balance 2792.500 -1131.50 -801 - Lab Results Lab Results: 09/06/17 04:08 09/04/17 04:48 - Current Medications Current Medications: Current Medications Generic Name Dose Route Start Last Admin Trade Name Freq PRN Reason Stop Dose Admin Docusate Sodium 250 mg 09/06/17 09:00 09/06/17 22:08 Colace 250mg Capsule PO 250 mg BID CRUZ Administration Famotidine 20 mg 09/03/17 21:00 09/06/17 22:08 Pepcid PO 20 mg BID CRUZ Administration Hydromorphone HCl 1 mg 09/06/17 08:33 09/06/17 13:47 Dilaudid Inj Carp IVP 1 mg Q2HR PRN Administration PAIN Oxycodone/Acetaminophen 2 tab 09/06/17 08:30 09/07/17 06:35 Percocet 5 Mg/325 Mg PO 2 tab Q4HR PRN Administration PAIN Sodium Chloride 10 ml 09/03/17 17:00 09/07/17 04:12 Normal Saline Flush 0.9% IVP 10 ml 0100,0900,1700 CRUZ Administration Sodium Chloride 10 ml 09/03/17 12:51 09/06/17 13:48 Normal Saline Flush 0.9% IVP 10 ml PRN PRN Administration NEEDED PER PROVIDER ORDERS - Physical Exam Abdomen: positive: Other (dressing dry) Impression/Plan - Problem List Problem List: s/p ileostomy takedown POD#4 Having more flatus less abdominal cramping today. More formed bowel movement today. He has been taught wound care. D/c home.
--- NOTE | 2017-09-07 08:10 | PROVIDER PROGRESS NOTE ---
Subjective - General Admit Date: 09/03/17 Procedure Performed: Ieostomy Takedown - Review of Systems Wound/Incisions: positive: Healing well Gastrointestinal: positive: Flatus, Other (small loose bowel movement. c/o abdominal cramping.) Objective - Patient Data Vital Signs: Vital Signs x48h Temp Pulse Resp BP Pulse Ox 09/07/17 00:21 36.9 C 71 18 124/82 H 99 Intake & Output: Intake and Output Totals x24h 09/05/17 09/06/17 09/07/17 23:59 23:59 23:59 Intake Total 4692.500 2068.50 Output Total 1900 3200 801 Balance 2792.500 -1131.50 -801 - Lab Results Lab Results: 09/06/17 04:08 09/04/17 04:48 - Current Medications Current Medications: Current Medications Generic Name Dose Route Start Last Admin Trade Name Freq PRN Reason Stop Dose Admin Docusate Sodium 250 mg 09/06/17 09:00 09/06/17 22:08 Colace 250mg Capsule PO 250 mg BID CRUZ Administration Famotidine 20 mg 09/03/17 21:00 09/06/17 22:08 Pepcid PO 20 mg BID CRUZ Administration Hydromorphone HCl 1 mg 09/06/17 08:33 09/06/17 13:47 Dilaudid Inj Carp IVP 1 mg Q2HR PRN Administration PAIN Oxycodone/Acetaminophen 2 tab 09/06/17 08:30 09/07/17 06:35 Percocet 5 Mg/325 Mg PO 2 tab Q4HR PRN Administration PAIN Sodium Chloride 10 ml 09/03/17 17:00 09/07/17 04:12 Normal Saline Flush 0.9% IVP 10 ml 0100,0900,1700 RCUZ Administration Sodium Chloride 10 ml 09/03/17 12:51 09/06/17 13:48 Normal Saline Flush 0.9% IVP 10 ml PRN PRN Administration NEEDED PER PROVIDER ORDERS - Physical Exam Abdomen: positive: Other (abdominal wound open clean) Impression/Plan - Problem List Problem List: s/p ileostomy closure, repair of parastomal hernia pod#3. c/o abdominal cramping. Oral pain medication somewhat relieves his pain but still needing intermittent iv dilaudid. Still not fully capable to do dressing changes at home. Will have patient stay one more day for adequate pain control and wound care.
--- NOTE | 2017-09-07 08:12 | Discharge Plan ---
Discharge Plan Disposition: Home, Self Care Condition: Good Prescriptions: oxyCODONE/ACET 5/325 [Percocet 5 mg/325 mg] 1 - 2 tab PO Q4HR PRN #40 tablet PRN Reason: Pain Diet: Regular Activity Restrictions: no lifting over 15 lbs Shower Restrictions: Yes Driving Restrictions: Yes Weight Bearing: Full Weight Additional Instructions or Follow Up instructions: Followup at surgery clinic 09/08/17 for nurse to supervise dressing change. Colace 100 mg 2 tablets by mouth twice a day. Hold for diarrhea. No Smoking: If you smoke, Please STOP! Call for help. Follow-up with: ELIEL UP MD [Primary Care Provider] - 2 Weeks Steh Yun MD [Provider Admit Priv/Credential] - 09/16/17
[2017-09-07] MEDS: FAMOTIDINE 20 MG TABLET PO SCH (09:49)
[2017-09-07] MEDS: DOCUSATE SODIUM 250 MG CAPSULE PO SCH (09:51)
[2017-09-07 11:46] VITALS: BP 132/81
--- NOTE | 2017-09-15 10:42 | DISCHARGE SUMMARY ---
Physician: Seth Yun MD DATE OF ADMISSION: 09/03/2017 DATE OF DISCHARGE: 09/07/2017 REASON FOR ADMISSION: Ileostomy takedown and repair of prolapsing ostomy. HISTORY OF PRESENT ILLNESS: The patient is a 42-year-old male who is approximately 3 months out from a sigmoid colon resection, colorectal anastomosis, and diverting ileostomy for perforated diverticulitis with peritonitis. He is now here to have the ileostomy takedown. PRINCIPAL DIAGNOSIS: History of perforated diverticulitis, status post resection with diverting ileostomy. OTHER ISSUES 1. Prolapsing ostomy. 2. Parastomal hernia. 3. Obesity. PROCEDURES: The patient underwent flexible sigmoidoscopy, repair of parastomal hernia, and ileostomy takedown on 09/03/2017. He had a ostomy prolapse with the ileostomy takedown correcting this problem. HOSPITAL COURSE: The patient was admitted to the hospital and underwent the above procedure. He tolerated it well and was transferred to the floor in stable condition. His ostomy wound had been partially left open and had packing in it. On postoperative day #1, the packing changes were started daily, wet to dry. As before, his pain control was more difficult like his previous surgery. We were able to control it with Dilaudid, Toradol, and Tylenol. He is up walking in his room on postoperative day 1 and in the hallway on postoperative day 2. Abdominal binder was placed, which helped relieve some of the discomfort with mobilization. He started to have bowel function on postoperative day 2 and started a liquid diet. He was advanced to regular on postoperative day 3. He tolerated well on postoperative day 4. At this point, he was switched to oral Percocet, which relieved his pain adequately to be discharged. He remained afebrile. He did start having bowel movements at this point. He did not have any significant nausea or vomiting. He was then discharged home on postoperative day 4. He was taught how to do dressing changes at home and will follow up in clinic in regard to this. DISCHARGE PROGRAM: The patient will be discharged home. Follow up surgery clinic in a.m. in order to ensure proper wound care. He can ambulate, but no heavy lifting. He will wait to shower until he is seen in clinic. DISCHARGE MEDICATIONS: Percocet 1-2 p.o. q. 4-6 hours p.r.n. pain. TD: 09/15/2017 10:40 MTDJeffrey
== END 2017-09-07 11:30 | disposition home or self-care (01) | DRG 331 ==
LOC: OBS 09:15 → MS3 11:08
PROVIDERS: ADMIT Surgery; ATTEND Surgery
PROC: 0WQF0ZZ Repair Abdominal Wall, Open Approach (ICD-10-PCS; 2017-09-03)
PROC: 0DQB0ZZ Repair Ileum, Open Approach (ICD-10-PCS; principal; 2017-09-03 10:30)
DX: Z43.2 Encounter for attention to ileostomy (principal); E66.9 Obesity, unspecified; Z68.37 Body mass index [BMI] 37.0-37.9, adult; Z79.891 Long term (current) use of opiate analgesic; Z87.19 Personal history of other diseases of the digestive system; H54.7 Unspecified visual loss
CPT/HCPCS: 36415; 80048; 85014; 85018; 85025

== ENCOUNTER 2018-04-04 20:21 | Emergency (ER) | payer OTHER ==
[2018-04-04] MEDS ORDERED: LIDOCAINE-EPINEPH-TETRACAINE 3 ML SYRINGE TOP STA (20:47)
--- NOTE | 2018-04-04 20:50 | ED Physician Documentation ---
History of Present Illness - Stated complaint Stated Complaint: HD LAC/ETOH - Chief complaint Chief Complaint: Laceration - Additonal information Additional information: hx from pt 42 male AD was drinking [place] tonight and fell and hit his head lac to T high parietal region pt cannot recall event he denies DOS SANTOS and neck pain no numbness or weakness no blood thinners no other injuries good isac recently Review of Systems Constitutional: denies: Fever, Chills Ears: denies: Drainage/discharge Nose: denies: Epistaxis Cardiac: denies: Chest pain / pressure Respiratory: denies: Dyspnea GI: denies: Abdominal Pain, Nausea, Vomiting Musculoskeletal: denies: Neck pain Neurologic: reports: Head injury, Other (amnesia). denies: Focal weakness, Numbness, Headache Endocrine: denies: Easy bruising / bleeding Immunocompromised: denies: Immunocompromised PD PAST MEDICAL HISTORY - Past Medical History Cardiovascular: None Respiratory: None Endocrine/Autoimmune: None GI: Diverticulitis : None HEENT: None Psych: None Musculoskeletal: None Derm: None - Past Surgical History Past Surgical History: Yes General: Bowel surgery, Other - Present Medications Home Medications: Ambulatory Orders Medication Instructions Recorded Confirmed Multivitamin,Therapeutic [Thera] 1 each PO DAILY 06/07/17 09/03/17 Cholecalciferol (Vitamin D3) 50,000 unit PO Q7D 08/09/17 09/03/17 [Vitamin D3] - Allergies Allergies/Adverse Reactions: Allergies Allergy/AdvReac Type Severity Reaction Status Date / Time gluten Allergy Mild Cramps Verified 04/04/18 20:32 wheat Allergy Mild Bloating Verified 04/04/18 20:32 cocoa AdvReac Rash Verified 04/04/18 20:32 Kerlex AdvReac Rash Uncoded 04/04/18 20:32 plastic AdvReac Rash Uncoded 04/04/18 20:32 - Social History Does the pt smoke?: No Smoking Status: Never smoker Does the pt drink ETOH?: Yes Does the pt have substance abuse?: No - Immunizations Immunizations are current?: Yes - POLST Patient has POLST: No POLST Status: Full Code PD ED PE NORMAL - Vitals Vital signs reviewed: Yes - General General: Alert and oriented X 3 - HEENT HEENT: No: Atraumatic (U shaped lac approx 2.5 cm to high R parietal region) - Neck Neck: No bony TTP - Cardiac Cardiac: RRR - Respiratory Respiratory: No respiratory distress, Clear bilaterally - Abdomen Abdomen: Non tender - Derm Derm: Normal color - Neuro Neuro: Alert and oriented X 3, police captain 2-12 intact, No motor deficit, No sensory deficit, Normal speech Eye Opening: Spontaneous Motor: Obeys Commands Verbal: Oriented GCS Score: 15 Results - Vitals Vitals: Vital Signs - 24 hr 04/04/18 20:24 Temperature 36.5 C Heart Rate 89 Respiratory 16 Rate Blood Pressure 131/87 H O2 Saturation 95 Oxygen O2 Source Room air - Rads (name of study) CTH Radiology: See rad report (no acute) CT CS Radiology: See rad report (no acute fx or malalignment) Procedures - Laceration (location) scalp Length in cm: 2.5 Wound type: Curved Neurovascular status: Sensory intact, Motor intact Anesthesia: LET Wound Preparation: Irrigated copiously NS (by nurse / tech) Skin layer closure: Tresa (3) Other: Patient tolerated well, No complications, Tetanus UTD Complexity: Simple PD MEDICAL DECISION MAKING - ED course ED course: to to sig intoxication and amnesia to event cannot clear pt clinically so got CTH CTCS they were neg lac was repaired went to dc pt he then states he also would like to discuss his abd pain by his hx, he has a long hx of slow bowels and suffered diverticulitis with perf last spring and had a resection and colostomy and subsequent re-anasmatosis last spring by Dr Josie Yun he has had LLQ pain with BM for about 3 months now he has been back to the surgical clinic for this and has seen Dr Oviedo who recommended a colonoscopy which pt has deferred for now no fever chills NVD, some occ blood in BM but states this is lifelong for him and not new or different exam soft minimal TTP LLQ without any rebound or guarding or hernia appreciated we discussed option - I advised could get a FTAP but will take many hr because would need labs and oral prep etc - he does not want to do that tonight - he agrees to follow up with the surgery clinic again for further ongoing care since this is not a new problem and pt does not have an acute surgical abd this seems reasonable I Departure - Departure Disposition: 01 Home, Self Care Clinical Impression: Abdominal pain Head injury Qualifiers: Encounter type: initial encounter Qualified Code(s): S09.90XA - Unspecified injury of head, initial encounter Scalp laceration Qualifiers: Encounter type: initial encounter Qualified Code(s): S01.01XA - Laceration without foreign body of scalp, initial encounter Alcohol intoxication Qualifiers: Complication of substance-induced condition: uncomplicated Qualified Code(s): F10.920 - Alcohol use, unspecified with intoxication, uncomplicated Condition: Fair Instructions: ED Head Injury Closed Sleep Mon, ED Laceration Scalp Stitch Or Stap Follow-Up: Han Oviedo MD [Provider Admit Priv/Credential] - Comments: Please stay with a responsible adult tonight ho can watch over you. No driving as you are intoxicated Please seek help with your heavy drinking Keep the wound clean and apply antibiotic ointment every day. [place] out in 7-10 days Even with good wound care, some wounds become infected - if you notice redness swelling drainage etc please come back to the ER Regarding your abdominal pain: It seems to have been going on for several months now - only hurts with bowel movements - we discussed getting a CT scan but that would take many hours because you would need labs and oral contrast - and the test the surgeon recommended was a colonoscopy which cannot be done from the ER - you decided to go home for tonight and follow up with the surgery clinic instead. Please call in the morning to schedule. And of course, return if worse
--- NOTE | 2018-04-04 21:21 | CT Report ---
Reason: DAVIDE julio Procedure Date: 04/04/2018 Accession Number: [id number] / [id number] Procedure: CT - Head W/O CPT Code: FULL RESULT: EXAM: CT HEAD EXAM DATE: 04/04/2018 09:11 PM. CLINICAL HISTORY: Head injury. COMPARISON: None available. TECHNIQUE: Multiaxial CT images were obtained from the foramen magnum to the vertex. Reformats: Sagittal and coronal. IV contrast: None. In accordance with CT protocol optimization, one or more of the following dose reduction techniques were utilized for this exam: automated exposure control, adjustment of mA and/or KV based on patient size, or use of iterative reconstructive technique. FINDINGS: Parenchyma: No acute intraparenchymal hemorrhage. No evidence of mass or midline shift. Gomes-white differentiation is distinct. Extraaxial Spaces: No subdural or epidural collections identified. Ventricles: Normal in size and position. Sinuses and Orbits: Imaged paranasal sinuses, orbits, and mastoids show no significant abnormality. Bones: No evidence of fracture or calvarial defect. Other: None. IMPRESSION: No acute intracranial findings. An acute infarct may not be visible by CT. Follow-up examinations recommended as clinically indicated. [facility]
--- NOTE | 2018-04-04 21:26 | CT Report ---
Reason: DAVIDE julio Procedure Date: 04/04/2018 Accession Number: [id number] / [id number] Procedure: CT - Cervical Spine W/O CPT Code: FULL RESULT: EXAM: CT CERVICAL SPINE WITHOUT CONTRAST DATE: 04/04/2018 09:11 PM. HISTORY: Head injury. COMPARISONS: None available. TECHNIQUE: Thin-section axial images were acquired of the cervical spine without contrast. Post-processing: Coronal and sagittal reformats. Other: None. In accordance with CT protocol optimization, one or more of the following dose reduction techniques were utilized for this exam: automated exposure control, adjustment of mA and/or KV based on patient size, or use of iterative reconstructive technique. FINDINGS: Alignment: No scoliosis or spondylolisthesis. Bones/discs: No acute fracture, subluxation, or compression deformity. The craniocervical junction is intact. Facet joint alignment is normal. Mild disc space narrowing at C5-C6, C6-C7, and C7-T1. Mild multilevel degenerative facet arthropathy. Mild degenerative change at the atlantoaxial interval. Musculature: Unremarkable. Other: The paravertebral and prevertebral soft tissues are unremarkable. The lung apices are clear. IMPRESSION: No acute fracture or malalignment of the cervical spine. [facility]
[2018-04-04 22:19] VITALS: BP 116/78
== END 2018-04-04 22:16 | disposition home or self-care (01) ==
LOC: ED 20:21
DX: S01.01XA Laceration without foreign body of scalp, initial encounter (principal); S09.90XA Unspecified injury of head, initial encounter; R10.9 Unspecified abdominal pain; F10.129 Alcohol abuse with intoxication, unspecified; W18.30XA Fall on same level, unspecified, initial encounter; Y92.000 Kitchen of unspecified non-institutional (private) residence as the place of occurrence of the external cause
CPT/HCPCS: 12001; 70450; 72125; 99283

== ENCOUNTER 2018-11-25 20:16 | Emergency (ER) | payer OTHER ==
--- NOTE | 2018-11-25 20:25 | ED Physician Documentation ---
PD HPI ABD PAIN - Stated complaint Stated Complaint: ABD PX/VOM - Chief complaint Chief Complaint: Abd Pain - History obtained from History obtained from: Patient - History of Present Illness Timing - onset: How many hours ago (1), Today Timing - duration: Hours (1) Timing - details: Abrupt onset, Still present Quality: Cramping, Aching, Pain. No: Fullness/distended Location: Periumbilical Radiation: Lower back Improved by: Laying still Worsened by: Moving, Breathing, Position Associated symptoms: Nausea. No: Fever, Vomiting, Diarrhea, Constipation, Dysuria, Loss of appetite Similar symptoms before: Has not had sx before Recently seen: Surgery (had umbilical hernia repair with mesh 5 weeks ago, with good healing so far.) Review of Systems Constitutional: denies: Fever, Chills Nose: denies: Rhinorrhea / runny nose, Congestion Throat: denies: Sore throat Cardiac: denies: Chest pain / pressure Respiratory: denies: Dyspnea, Cough GI: reports: Abdominal Pain, Nausea. denies: Vomiting, Constipation, Bloody / black stool : denies: Dysuria, Hematuria Musculoskeletal: denies: Back pain Neurologic: denies: Near syncope PD PAST MEDICAL HISTORY - Past Medical History Cardiovascular: None Respiratory: None Endocrine/Autoimmune: None GI: Diverticulitis : None HEENT: None Psych: None Musculoskeletal: None Derm: None - Past Surgical History Past Surgical History: Yes General: Bowel surgery, Other - Present Medications Home Medications: Ambulatory Orders Medication Instructions Recorded Confirmed Multivitamin,Therapeutic [Thera] 1 each PO DAILY 06/07/17 09/03/17 Cholecalciferol (Vitamin D3) 50,000 unit PO Q7D 08/09/17 09/03/17 [Vitamin D3] Docusate Sodium 100 mg PO DAILY #30 capsule 11/26/18 Ondansetron Odt [Zofran] 4 mg TL Q6H PRN #10 tablet 11/26/18 Oxycodone HCl/Acetaminophen 1 each PO Q6H PRN #14 tablet 11/26/18 [Percocet 5-325 mg Tablet] - Allergies Allergies/Adverse Reactions: Allergies Allergy/AdvReac Type Severity Reaction Status Date / Time gluten Allergy Mild Cramps Verified 11/25/18 20:24 wheat Allergy Mild Bloating Verified 11/25/18 20:24 cocoa AdvReac Rash Verified 11/25/18 20:24 Kerlex AdvReac Rash Uncoded 04/04/18 20:32 plastic AdvReac Rash Uncoded 04/04/18 20:32 - Social History Does the pt smoke?: No Smoking Status: Never smoker Does the pt drink ETOH?: Yes Does the pt have substance abuse?: No - Immunizations Immunizations are current?: Yes - POLST Patient has POLST: No POLST Status: Full Code PD ED PE NORMAL - Vitals Vital signs reviewed: Yes - General General: Alert and oriented X 3, Well developed/nourished, Other (seems in pain) - HEENT HEENT: Pharynx benign - Neck Neck: Supple, no meningeal sign, No adenopathy - Cardiac Cardiac: RRR, No murmur - Respiratory Respiratory: Clear bilaterally - Abdomen Abdomen: Soft, Non distended, No organomegaly, Other (bowel sounds decreased; Tender periumbilical and right of that. No percussion nor rebound tenderness. Incisions from recent surgery well healing without signs of infection. Right of the mid part of midline incision is an approx 4 cm area of firmness with slight tenderness. No redness nor warmth. ) Results - Vitals Vitals: Vital Signs - 24 hr 11/25/18 11/25/18 11/25/18 20:22 20:24 21:35 Temperature 36.9 C Heart Rate 66 66 74 Respiratory 19 17 17 Rate Blood Pressure 112/90 H 128/100 H 112/60 O2 Saturation 100 100 99 11/25/18 11/25/18 11/25/18 21:58 22:28 22:35 Temperature Heart Rate 72 73 Respiratory 18 17 17 Rate Blood Pressure 116/86 H O2 Saturation 100 11/25/18 11/26/18 23:46 00:25 Temperature 37.0 C Heart Rate 80 Respiratory 17 20 Rate Blood Pressure 100/77 O2 Saturation 96 Oxygen O2 Source Room air - Labs Labs: Microbiology 11/25/18 23:13 Body Fluid Culture - Preliminary Other - Aspirate Laboratory Tests 11/25/18 11/25/18 11/25/18 21:00 21:00 21:00 WBC 5.7 RBC 4.78 Hgb 13.9 L Hct 42.8 MCV 89.5 MCH 29.1 MCHC 32.5 RDW 14.1 Plt Count 253 MPV 9.8 Neut # (Auto) 3.0 Lymph # (Auto) 2.1 [place] # (Auto) 0.5 Eos # (Auto) 0.1 Baso # (Auto) 0.0 Absolute Nucleated RBC 0.00 Nucleated RBC % 0.0 Sodium 142 Potassium 3.7 Chloride 102 Carbon Dioxide 26 Anion Gap 14.0 H BUN 13 Creatinine 1.0 Estimated GFR (MDRD) 81 L Glucose 98 Lactic Acid 3.1 H* Calcium 9.2 Magnesium 2.1 Total Bilirubin 0.7 AST 33 ALT 20 Alkaline Phosphatase 58 Total Protein 7.5 Albumin 4.3 Globulin 3.2 Albumin/Globulin Ratio 1.3 Lipase 40 Fluid Source Fluid Color Fluid Clarity Fluid WBC Fluid RBC Fluid Neutrophils % Fluid Lymphocytes % Fluid Monocytes % Fluid Eosinophils % Fld Mesothelial Cell % 11/25/18 11/25/18 23:13 23:35 WBC RBC Hgb Hct MCV MCH MCHC RDW Plt Count MPV Neut # (Auto) Lymph # (Auto) [place] # (Auto) Eos # (Auto) Baso # (Auto) Absolute Nucleated RBC Nucleated RBC % Sodium Potassium Chloride Carbon Dioxide Anion Gap BUN Creatinine Estimated GFR (MDRD) Glucose Lactic Acid 1.4 Calcium Magnesium Total Bilirubin AST ALT Alkaline Phosphatase Total Protein Albumin Globulin Albumin/Globulin Ratio Lipase Fluid Source PERITONEAL Fluid Color RED Fluid Clarity CLOUDY Fluid WBC 580 Fluid RBC [id number] Fluid Neutrophils % 20 Fluid Lymphocytes % 32 Fluid Monocytes % 44 Fluid Eosinophils % 4 Fld Mesothelial Cell % Not Reportable - Rads (name of study) abd CT Radiology: Prelim report reviewed (extension of hernia to right lateral of the mesh. No obstruction. Fluid collection 4 cm just under the skin/in subcut fat area. ), See rad report PD MEDICAL DECISION MAKING - ED course Complexity details: reviewed results (CT shows some extension of his hernia beyond the recent mesh. No obstruction. There is also subcut fluid collection mid abd. ), re-evaluated patient (Aspirated serosangiunous fluid from subcut fluid anterior abd - presume seroma/hematoma and does not seem infecdted. ), considered differential (Consider possible obstruction, abscess, perforation, renal colic, vascular. ), d/w patient, d/w applications sales consultant (talked with surgery software validation engineer in [place] (where he had recent surgery) - will pass on info to pt's surgeon. ), other (local anesth with lido/epi over the area of the fluid collection, confirmed on bedside U/S, then skin cleansed and aspirated 12 ml of fluid - serosangiunous fluid without purulence. ) ED course: Pain improved with IV meds. Departure - Departure Disposition: 01 Home, Self Care Clinical Impression: Postoperative pain Abdominal pain Qualifiers: Abdominal location: periumbilical Qualified Code(s): R10.33 - Periumbilical pain Condition: Stable Record reviewed to determine appropriate education?: Yes Instructions: ED Abdominal Pain Unkn Cause Follow-Up: Adan Brown MD [Primary Care Provider] - Prescriptions: Docusate Sodium 100 mg PO DAILY #30 capsule Ondansetron Odt [Zofran] 4 mg TL Q6H PRN #10 tablet PRN Reason: Nausea / Vomiting Oxycodone HCl/Acetaminophen [Percocet 5-325 mg Tablet] 1 each PO Q6H PRN #14 tablet PRN Reason: pain Comments: Your CT scan showed a small seroma/hematoma in the abdominal wall which is what I aspirated. It did not look infected. We have a culture of it in the lab and will call you if it shows any bacterial growth. I do not think this is what was hurting you. Your CT scan also showed some extension of your hernia and some inflammation in the abdominal wall to the right side of the mesh and prior hernia. I think this is likely what is causing the pain right now. Use some Percocet if needed for pain. Daily stool softener. Call your surgeon's office tomorrow or Wednesday to set up a follow-up appointment. Return if worsening pain, repetitive vomiting, fever, bloody stools or any other concerns. Discharge Date/Time: 11/26/18 00:30
[2018-11-25] MEDS ORDERED: SODIUM CHLORIDE 0.9% 1,000 ML IV ONE ×2 (20:36→23:20)
[2018-11-25] MEDS ORDERED: HYDROmorphone 1 MG/ML CARPUJECT IVP STA ×3 (20:36→23:02)
[2018-11-25] MEDS ORDERED: ONDANSETRON 4 MG/2 ML VIAL IVP STA ×2 (20:36→22:07)
[2018-11-25] MEDS ORDERED: IOVERSOL 320 100 ML VIAL IVP ONE ×2 (20:52→21:57)
[2018-11-25 21:10] LABS: BASOPHILS % (AUTO) 0.7 %; EOSINOPHILS # (AUTO) 0.1 10^3/uL (0.0-0.7); EOSINOPHILS % (AUTO) 2.5 %; HGB - HEMOGLOBIN 13.9 g/dL (14.0-18.0); LYMPHOCYTES # (AUTO) 2.1 10^3/uL (1.5-3.5); LYMPHOCYTES % (AUTO) 36.1 %; MEAN CORPUSCULAR HEMOGLOBIN 29.1 pg (27.0-31.0); MEAN CORPUSCULAR HGB CONC 32.5 g/dL (32.0-36.0); MEAN CORPUSCULAR VOLUME 89.5 fL (80.0-94.0); MEAN PLATELET VOLUME 9.8 fL (7.4-11.4); MONOCYTES # (AUTO) 0.5 10^3/uL (0.0-1.0); MONOCYTES % (AUTO) 7.9 %; NEUTROPHILS % (AUTO) 52.4 %; PLT - PLATELET COUNT 253 10^3/uL (130-450); RED BLOOD COUNT 4.78 10^6/uL (4.70-6.10); RED CELL DISTRIBUTION WIDTH 14.1 % (12.0-15.0); WHITE BLOOD COUNT 5.7 x10^3/uL (4.8-10.8)
[2018-11-25 21:26] LABS: ALBUMIN 4.3 g/dL (3.2-5.5); ALBUMIN/GLOBULIN RATIO 1.3 (1.0-2.2); BILIRUBIN,TOTAL 0.7 mg/dL (0.2-1.0); CALCIUM 9.2 mg/dL (8.5-10.3); MAGNESIUM 2.1 mg/dL (1.7-2.8); TOTAL PROTEIN 7.5 g/dL (6.7-8.2)
[2018-11-25] MEDS ORDERED: KETOROLAC 30 MG/ML VIAL IVP STA (22:08)
--- NOTE | 2018-11-25 22:23 | CT Report ---
Reason: abrupt abd pain tonite; hernia repair 5 wks ago Procedure Date: 11/25/2018 Accession Number: [id number] / [id number] Procedure: CT - Abdomen/Pelvis W CPT Code: FULL RESULT: EXAM: CT ABDOMEN AND PELVIS EXAM DATE: 11/25/2018 09:45 PM. CLINICAL HISTORY: Abdominal pain COMPARISONS: ABDOMEN/PELVIS W/ 06/12/2017 11:48 AM. TECHNIQUE: Routine helical CT imaging was performed through the abdomen and pelvis. IV contrast: 100 ML OPTIRAY 320. Enteric contrast: No. Reconstructions: Coronal and sagittal. In accordance with CT protocol optimization, one or more of the following dose reduction techniques were utilized for this exam: automated exposure control, adjustment of mA and/or KV based on patient size, or use of iterative reconstructive technique. FINDINGS: Lung Bases: Unremarkable. Liver: Subcentimeter hypodensity within segment 4 of the liver is too small to characterize. No suspicious hepatic abnormalities are seen. Gallbladder/Bile Ducts: Unremarkable. Spleen: Normal. Pancreas: Normal. Adrenal Glands: Normal. Kidneys: Normal. No masses or hydronephrosis. Peritoneal Cavity/Bowel: There is an anterior abdominal wall defect at the right margin of the patient's hernia repair, into which a short segment of small bowel may protrude. There is no evidence of bowel obstruction. No evidence of appendicitis. No intraperitoneal free air. No free fluid. No enlarged mesenteric or retroperitoneal lymph nodes. Pelvic Organs: No acute pelvic organ abnormalities are seen. Vasculature: No acute vascular findings. Bones: There is a hemangioma within the L1 vertebral body. Other: There is a circumscribed subcutaneous fluid collection measuring 2 x 4 x 4 cm within the anterior abdominal wall. IMPRESSION: 1. At the right margin of the patient's hernia mesh repair site, there is a focal defect into which a short segment of small bowel may protrude (for example image 53 series 3). There is a thin circumscribed hypodense region at the right margin of this defect which could represent small amount of focal fluid measuring approximately 6 cm in length and 1 cm in thickness (for example image 50 series 3). 2. There is a circumscribed subcutaneous fluid collection measuring 2 x 4 x 4 cm within the anterior abdominal wall. 3. There is no evidence of bowel obstruction or appendicitis. No significant mesenteric inflammation. 4. Solid abdominal organs demonstrate no acute abnormalities. [facility]
[2018-11-25 23:53] LABS: CC,BF RBC 422000 /mm^3
[2018-11-26 00:04] LABS: EOSINOPHILS %,BODY FLUID 4 %; LYMPHOCYTES %,BODY FLUID 32; MONOCYTES %,BODY FLUID 44 %
[2018-11-26 00:05] LABS: BF COLOR RED; BF SOURCE PERITONEAL
[2018-11-26] MEDS ORDERED: oxyCODONE/ACET 5/325 Prepack 4 PO STA (00:09)
[2018-11-26] MEDS ORDERED: DOCUSATE SODIUM 100 MG CAPSULE PO STA (00:09)
[2018-11-26 00:26] VITALS: BP 100/77
== END 2018-11-26 00:30 | disposition home or self-care (01) ==
LOC: ED 20:16
DX: G89.18 Other acute postprocedural pain (principal); R10.33 Periumbilical pain; L76.34 Postprocedural seroma of skin and subcutaneous tissue following other procedure; Y83.8 Other surgical procedures as the cause of abnormal reaction of the patient, or of later complication, without mention of misadventure at the time of the procedure; K46.9 Unspecified abdominal hernia without obstruction or gangrene
CPT/HCPCS: 10160; 74177; 80053; 83605; 83690; 83735; 85025; 87070; 87205; 89051; 96361; 96374; 96376; 99284; A9270; J1170; Q9967; 87077; 87181

== ENCOUNTER 2018-12-14 12:22 | Emergency (ER) | payer OTHER ==
[2018-12-14 12:56] LABS: BASOPHILS % (AUTO) 0.5 %; EOSINOPHILS # (AUTO) 0.1 10^3/uL (0.0-0.7); HGB - HEMOGLOBIN 14.5 g/dL (14.0-18.0); LYMPHOCYTES # (AUTO) 2.9 10^3/uL (1.5-3.5); LYMPHOCYTES % (AUTO) 37.7 %; MEAN CORPUSCULAR HEMOGLOBIN 29.4 pg (27.0-31.0); MEAN CORPUSCULAR HGB CONC 33.3 g/dL (32.0-36.0); MEAN CORPUSCULAR VOLUME 88.3 fL (80.0-94.0); MEAN PLATELET VOLUME 9.6 fL (7.4-11.4); MONOCYTES # (AUTO) 0.6 10^3/uL (0.0-1.0); MONOCYTES % (AUTO) 7.1 %; NEUTROPHILS # (AUTO) 4.1 10^3/uL (1.5-6.6); NEUTROPHILS % (AUTO) 53.4 %; PLT - PLATELET COUNT 267 10^3/uL (130-450); RED BLOOD COUNT 4.94 10^6/uL (4.70-6.10); RED CELL DISTRIBUTION WIDTH 13.9 % (12.0-15.0); WHITE BLOOD COUNT 7.7 x10^3/uL (4.8-10.8)
[2018-12-14 13:07] LABS: ALBUMIN 4.6 g/dL (3.2-5.5); ALBUMIN/GLOBULIN RATIO 1.4 (1.0-2.2); BILIRUBIN,TOTAL 1.1 mg/dL (0.2-1.0); CALCIUM 9.3 mg/dL (8.5-10.3); CREATININE 0.9 mg/dL (0.6-1.2); TOTAL PROTEIN 7.8 g/dL (6.7-8.2)
--- NOTE | 2018-12-14 14:52 | ED Physician Documentation ---
PD HPI ABD PAIN - Stated complaint Stated Complaint: ABD PX - Chief complaint Chief Complaint: Abd Pain - History obtained from History obtained from: Patient - History of Present Illness Timing - onset: How many minutes ago (30), Today Timing - duration: Minutes (30 minutes ago and persists to the ER.) Timing - details: Abrupt onset, Still present Quality: Aching, Sharp, Pain Location: Periumbilical (and to the right side of that) Radiation: No: Lower back, Right flank Improved by: Position (feels better lying on back.). No: Laying still Worsened by: Moving, Palpation (he felt a firm tender lump in area that had been hurting some at times the past couple of weeks.). No: Breathing Associated symptoms: Nausea. No: Fever, Vomiting, Diarrhea Similar symptoms before: Diagnosis (had had incisional hernia repair few weeks ago and was having pain after, with CT done at ER visit about 10 days ago showing hernia developing lateral to the prior repair. Saw his surgeon, Karla, in [place] in follow up and was possibly getting referral to [facility] at , according to patient.) Recently seen: Clinic (couple days ago in office, surgeon.), Emergency Dept (about 10 days ago, with pain in same area but not as abrupt.) Review of Systems Constitutional: denies: Fever, Chills Nose: denies: Rhinorrhea / runny nose, Congestion Throat: denies: Sore throat Respiratory: denies: Cough GI: reports: Abdominal Pain, Nausea. denies: Vomiting, Constipation, Diarrhea, Bloody / black stool : denies: Dysuria, Frequency Skin: denies: Rash, Lesions Musculoskeletal: reports: Extremity pain (burning feeling down anterolateral left thigh, does not go down below mid thigh. No rash nor sores. Just started the past 1-2 days.). denies: Neck pain, Back pain Neurologic: denies: Generalized weakness, Focal weakness PD PAST MEDICAL HISTORY - Past Medical History Cardiovascular: None Respiratory: None Neuro: None Endocrine/Autoimmune: None GI: Diverticulitis : None HEENT: None Psych: None Musculoskeletal: None Derm: None - Past Surgical History Past Surgical History: Yes General: Bowel surgery, Other - Present Medications Home Medications: Ambulatory Orders Medication Instructions Recorded Confirmed Multivitamin,Therapeutic [Thera] 1 each PO DAILY 06/07/17 09/03/17 Cholecalciferol (Vitamin D3) 50,000 unit PO Q7D 08/09/17 09/03/17 [Vitamin D3] Docusate Sodium 100 mg PO DAILY #30 capsule 11/26/18 Ondansetron Odt [Zofran] 4 mg TL Q6H PRN #10 tablet 11/26/18 Oxycodone HCl/Acetaminophen 1 each PO Q6H PRN #14 tablet 11/26/18 [Percocet 5-325 mg Tablet] Docusate Sodium 100 mg PO DAILY #30 capsule 12/14/18 Oxycodone HCl/Acetaminophen 1 - 2 each PO Q6H PRN #14 tablet 12/14/18 [Percocet 5-325 mg Tablet] - Allergies Allergies/Adverse Reactions: Allergies Allergy/AdvReac Type Severity Reaction Status Date / Time gluten Allergy Mild Cramps Verified 12/14/18 12:34 wheat Allergy Mild Bloating Verified 12/14/18 12:34 cocoa AdvReac Rash Verified 12/14/18 12:34 Kerlex AdvReac Rash Uncoded 12/14/18 12:34 plastic AdvReac Rash Uncoded 12/14/18 12:34 - Social History Does the pt smoke?: No Smoking Status: Never smoker Does the pt drink ETOH?: Yes Does the pt have substance abuse?: No - Immunizations Immunizations are current?: Yes - POLST Patient has POLST: No POLST Status: Full Code PD ED PE NORMAL - Vitals Vital signs reviewed: Yes - General General: Alert and oriented X 3, Well developed/nourished, Other (appears in pain) - HEENT HEENT: Pharynx benign - Neck Neck: Supple, no meningeal sign, No adenopathy - Cardiac Cardiac: RRR, No murmur - Respiratory Respiratory: Clear bilaterally - Abdomen Abdomen: Non distended, Other (healing surgical scars around umbilicus without signs of infection. There is a firm, tender, palpable subcutaneous mass right periumbilical area that extends to to muscle layer. It does not compress and is very painful to touch firmly. ). No: Normal bowel sounds (increased) - Male Male : Deferred - Rectal Rectal: Deferred - Back Back: No CVA TTP - Derm Derm: Normal color, Warm and dry - Extremities Extremities: No tenderness to palpate, Normal ROM s pain, No edema, No calf tenderness / cord, Other (some feeling of burning lateral left thigh without skin sores, rash.) - Neuro Neuro: Alert and oriented X 3, No motor deficit, Normal speech Results - Vitals Vitals: Vital Signs - 24 hr 12/14/18 12/14/18 12/14/18 12:31 16:28 18:19 Temperature 36.5 C Heart Rate 65 67 67 Respiratory 18 16 20 Rate Blood Pressure 147/101 H 128/86 H 134/91 H O2 Saturation 100 98 Oxygen O2 Source Room air - Labs Labs: Laboratory Tests 12/14/18 12/14/18 12/14/18 12:45 12:45 15:37 WBC 7.7 RBC 4.94 Hgb 14.5 Hct 43.6 MCV 88.3 MCH 29.4 MCHC 33.3 RDW 13.9 Plt Count 267 MPV 9.6 Neut # (Auto) 4.1 Lymph # (Auto) 2.9 [place] # (Auto) 0.6 Eos # (Auto) 0.1 Baso # (Auto) 0.0 Absolute Nucleated RBC 0.00 Nucleated RBC % 0.0 Sodium 143 Potassium 3.4 L Chloride 103 Carbon Dioxide 23 Anion Gap 17.0 H BUN 17 Creatinine 0.9 Estimated GFR (MDRD) 92 Glucose 137 H Calcium 9.3 Total Bilirubin 1.1 H AST 37 ALT 25 Alkaline Phosphatase 58 Total Protein 7.8 Albumin 4.6 Globulin 3.2 Albumin/Globulin Ratio 1.4 Lipase 39 Urine Color YELLOW Urine Clarity CLEAR Urine pH 7.0 Ur Specific [place] 1.020 Urine Protein NEGATIVE Urine Glucose (UA) NEGATIVE Urine Ketones 15 H Urine Occult Blood NEGATIVE Urine Nitrite NEGATIVE Urine Bilirubin NEGATIVE Urine Urobilinogen 0.2 (NORMAL) Ur Leukocyte Esterase NEGATIVE Ur Microscopic Review NOT INDICATED Urine Culture Comments NOT INDICATED - Rads (name of study) abd CT Radiology: Prelim report reviewed (loop of bowel in periumbilical hernia, adjacent to prior mesh repair. No signs of obstruction nor strangulation, per report. ), See rad report PD MEDICAL DECISION MAKING - ED course Complexity details: reviewed results (CT showing loop of bowel in the new hernia area with some inflammatory changes around it.), re-evaluated patient (After pain meds and lying on back, I did firm gentle pressure on the lump and it did not change much at first, but then slowly compressed and then reduced and his pain improved. Still having some abd pain in the area, crampy. ), considered differential (has clinical finding c/w incarcerated hernia. ), d/w patient, d/w [employer] consultant (s/w substation wireman surgeon for Karla, who will pass info to primary surgeon, for follow up in next couple of days. ) Departure - Departure Disposition: 01 Home, Self Care Clinical Impression: Incarcerated hernia of abdominal cavity Abdominal pain Qualifiers: Abdominal location: periumbilical Qualified Code(s): R10.33 - Periumbilical pain Condition: Stable Record reviewed to determine appropriate education?: Yes Follow-Up: Adan Brown MD [Primary Care Provider] - Kadeem Acosta MD [Physician No Access] - Prescriptions: Docusate Sodium 100 mg PO DAILY #30 capsule Oxycodone HCl/Acetaminophen [Percocet 5-325 mg Tablet] 1 - 2 each PO Q6H PRN #14 tablet PRN Reason: pain Comments: Off work tomorrow and Wednesday. Regular light activity is okay. No heavy lifting, physical training nor squatting for the next week. Follow-up with Dr. Acosta in the next couple of days, call in the morning for follow-up. It appeared you had an incarceration of part of a loop of bowel in the hernia area and it was reduced. You will need to talk with Dr. Ontiveros about repairing of the new hernia area. Return if severe pain like it was again. Forms: Activity restrictions Discharge Date/Time: 12/14/18 18:21
[2018-12-14] MEDS ORDERED: ONDANSETRON 4 MG/2 ML VIAL IVP STA (15:02)
[2018-12-14] MEDS ORDERED: HYDROmorphone 1 MG/ML CARPUJECT IVP STA ×2 (15:02→17:08)
[2018-12-14] MEDS ORDERED: SODIUM CHLORIDE 0.9% 1,000 ML IV ONE (15:02)
[2018-12-14] MEDS ORDERED: IOVERSOL 320 100 ML VIAL IVP ONE ×2 (15:15→19:07)
[2018-12-14 15:54] LABS: BILIRUBIN,URINE NEGATIVE (NEGATIVE); GLUCOSE, URINE (UA) NEGATIVE (NEGATIVE); KETONES,URINE (UA) 15 mg/dL (NEGATIVE); LEUKOCYTE ESTERASE, URINE NEGATIVE (NEGATIVE); NITRITE,URINE NEGATIVE (NEGATIVE); OCCULT BLOOD,URINE NEGATIVE (NEGATIVE); PROTEIN,URINE NEGATIVE (NEGATIVE); UROBILINOGEN,URINE 0.2 (NORMAL) E.U./dL (NORMAL)
[2018-12-14 16:03] LABS: CLARITY,URINE CLEAR (CLEAR)
--- NOTE | 2018-12-14 16:20 | CT Report ---
Reason: mid abd pain abruptly today; recent dx hernia Procedure Date: 12/14/2018 Accession Number: [id number] / [id number] Procedure: CT - Abdomen/Pelvis W CPT Code: FULL RESULT: EXAM: CT ABDOMEN AND PELVIS EXAM DATE: 12/14/2018 03:46 PM. CLINICAL HISTORY: Abrupt midabdomen pain. COMPARISONS: ABDOMEN/PELVIS W/ 11/25/2018 9:45 PM. TECHNIQUE: Routine helical CT imaging was performed through the abdomen and pelvis. IV contrast: 100 cc of Optiray 320. Enteric contrast: No. Reconstructions: Coronal and sagittal. In accordance with CT protocol optimization, one or more of the following dose reduction techniques were utilized for this exam: automated exposure control, adjustment of mA and/or KV based on patient size, or use of iterative reconstructive technique. FINDINGS: Lung Bases: Unremarkable. Liver: Normal. No masses. Gallbladder/Bile Ducts: Unremarkable. Spleen: Normal. Pancreas: Normal. Adrenal Glands: Normal. Kidneys: Normal. No masses or hydronephrosis. Peritoneal Cavity/Bowel: Prominent small bowel loop in a right lower quadrant ventral hernia along the edge of a prior ventral hernia repair, without fat stranding or bowel obstruction to suggest strangulation. Mild diverticulosis. Mid sigmoid and right lower quadrant ileal anastomosis noted. No free fluid, free air or adenopathy. No masses or acute inflammatory process. Nonvisualized appendix. Pelvic Organs: The prostate and bladder are unremarkable. Vasculature: No aneurysms or other significant abnormality. Bones: Degenerative disk disease at L4-L5. Other: Small fluid collection along the right margin of the midline incision, 8 x 17 mm. IMPRESSION: 1. Prominent small bowel loop within a ventral hernia to the right of patient's ventral hernia repair without signs of strangulation or bowel obstruction. 2. Fluid collection to the right of the midline incision is smaller than prior exam. RADIA
[2018-12-14] MEDS ORDERED: DOCUSATE SODIUM 100 MG CAPSULE PO STA (17:08)
[2018-12-14] MEDS ORDERED: KETOROLAC 30 MG/ML VIAL IVP STA (18:01)
[2018-12-14 18:20] VITALS: BP 134/91
== END 2018-12-14 18:21 | disposition home or self-care (01) ==
LOC: ED 12:22
DX: K43.6 Other and unspecified ventral hernia with obstruction, without gangrene (principal)
CPT/HCPCS: 36415; 74177; 80053; 81003; 83690; 85025; 96374; 96375; 96376; 99284; A9270; J1170; Q9967; 81001; 87086

== ENCOUNTER 2020-10-02 12:03 | Outpatient (CLI) | payer OTHER ==
--- NOTE | 2020-10-02 13:37 | SLEEP CARE CONSULTATION ---
Information from patient questionnaire entered by Libertad Cotter. I have reviewed and concur with the information entered by Libertad Cotter. This document represents the service I personally performed and the decisions made by me, Radha Urias ARNP. History of Present Illness Service Date and Time: 10/02/2020 1203 Reason for Visit: New patient Chief Complaint: reports: Insomnia, Unrefreshed sleep, Snoring, Fatigue, Frequent awakenings at night. denies: Excessive daytime sleepiness, Observed pauses in breathing Date of Onset: since 2004 Usual bedtime: 8 pm Time it takes to fall asleep: 1 hour or more Snores at night: Yes Observed to quit breathing while asleep: No Number of times waking at night: 3 or more Reasons for waking at night: reports: Snoring, Gasping for air (only 4-5 times in life associated with reflux), Pain, Bathroom, Other (general wake uo for seemingly no reason). denies: Choking Toss, Turn, or Twitch while sleeping: Yes Recalls having dreams: Yes Usually gets out of bed at: 6-7 am Feels refreshed in the morning: No Morning headache: No Sleepy or fatigued during the day: Yes Ever fallen asleep while driving: No Takes day naps: No Prior sleep studies: No Additional HPI information: I had the pleasure of seeing ZULLY DE today regarding the possibility of him having a sleep disorder. His current complaints are insomnia, unrefreshed sleep, fatigue, frequent night awakenings and snoring. He snores loudly and often. He does not feel rested when waking up in the morning. He wakes up 3-5 times a night. He can fall asleep in about an hour. He sometimes has ruminating thoughts that will keep him from falling asleep. He will wake up and not be able to get to sleep. If he wakes between 0330 to 0530 and cannot fall back to sleep. He does intense cardio workouts and PT daily as well as weight lifting to control some unusual edema that he has had for years. 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 Patient is Single and lives in [place]. Have you smoked in the past 12 months: No Alcohol use: Yes Alcohol amount and frequency: 2 drinks on sundays Caffeine use: Yes Caffeine amount and frequency: 16-32 oz 1-2 times a week Family History Family history of sleep disordered breathing: Yes Family Hx Sleep Apnea: Father: Snoring Allergies and Home Medications Drug allergies reviewed: Yes (NKDA) Home medication list reviewed: Yes Allergy and home medication list: Multivitamin [place] 3 Krill oil Turmeric Review of Systems Weight gain over past 5 years: 200 Weight loss over past 5 years: 170 Cardiovascular: reports: leg or foot swelling Gastrointestinal: reports: diarrhea. denies: heartburn Neurological: denies: headaches Psychiatric: reports: claustrophobia. denies: anxiety, depression Ear/Nose/Throat: reports: tonsillectomy, wisdom teeth removed Endocrine: reports: sluggishness, too hot or cold Musculoskeletal: reports: muscle pain or cramping Immunologic: reports: allergies to food or environment Physical Exam Blood Pressure: 135/92 Cuff size: long Heart Rate: 67 O2 Saturation: 97 Height: 5 ft 11 in Weight: 289 lb Body Mass Index: 40.3 BMI Classification: Morbidly Obese Neck circumference: 18.5 (inches) Mouth and throat: narrow oropharynx Soft palate: long Hard palate: normal Uvula: normal Uvula visualization: 50% Mallampati Class II Tongue: enlarged in size with teeth romano on lateral edges Tonsils: absent bilaterally Neck: normal w/o lymphadenopathy or thyromegaly Heart: regular rate and rhythm Lungs: clear bilaterally Impression and Plan 1. Suspected Obstructive Sleep Apnea-Hypopnea Syndrome, as suggested by a history of loud and irregular snoring, frequent awakening during the night, unrefreshed sleep, and cognitive impairment. A narrow oropharynx and obesity are common predisposing factors for obstructive sleep apnea-hypopnea syndrome. I recommend proceeding to polysomnography to confirm the diagnosis and to assess severity. If the patient has significant sleep disordered breathing, a manual CPAP titration study will also be performed to find the optimal treatment pressure. I informed the patient of what the sleep studies involve and after some discussion, obtained agreement to proceed. The pathophysiology of obstructive sleep apnea-hypopnea syndrome was discussed with the patient and health risks of cardiovascular and cerebrovascular disease if not treated. Risks of drowsy driving discussed in detail and patient advised to avoid long distance driving and to parts puller at the first sign of drowsiness. Patient agreed to plan. * Schedule polysomnography +- manual CPAP titration study and return in 1-2 weeks after the study to discuss result and initiate therapy. * Avoid long distance driving or driving when feeling sleepy. * Avoid alcohol, sedative and muscle relaxant around bedtime. * Attempt to lose weight. * Review instructions provided by trained office staff on how to prepare for the sleep study. * Return for follow-up after sleep study completed. Counseling Topics: Weight loss health impact Visit Type: In Office Time Spent with Patient (minutes): 36 Provider Statement: I spent 100% of the Face to Face Visit with the patient with greater than 50% spent counseling the patient and coordination of care.
[2020-10-02 13:38] VITALS: BP 135/92
== END 2020-10-02 12:04 | disposition home or self-care (01) ==
LOC: SC 12:03
PROVIDERS: ATTEND Nurse Practitioner Family
DX: G47.8 Other sleep disorders (principal); R06.81 Apnea, not elsewhere classified; R41.89 Other symptoms and signs involving cognitive functions and awareness; E66.01 Morbid (severe) obesity due to excess calories; Z68.41 Body mass index [BMI] 40.0-44.9, adult
CPT/HCPCS: 99203; 99212

== ENCOUNTER 2020-11-27 20:29 | Outpatient (CLI) | payer OTHER | END 2020-11-27 20:30 | disposition home or self-care (01) | LOC: SC 20:29 | PROVIDERS: ATTEND Nurse Practitioner Family | DX: G47.33 Obstructive sleep apnea (adult) (pediatric) (principal); G47.61 Periodic limb movement disorder; E66.9 Obesity, unspecified; Z68.41 Body mass index [BMI] 40.0-44.9, adult | CPT/HCPCS: 95810 ==

== ENCOUNTER 2020-12-06 15:15 | Outpatient (CLI) | payer OTHER ==
--- NOTE | 2020-12-06 16:03 | SLEEP CARE CONSULTATION ---
Information from patient questionnaire entered by Libertad Cotter. I have reviewed and concur with the information entered by Libertad Cotter. This document represents the service I personally performed and the decisions made by , Radha Urias ARNP. History of Present Illness Service Date and Time: 12/06/2020 1515 Initial [place] Sleepiness Scale score: 6 (in 2020) Current [place] Sleepiness Scale score: 1 Additional HPI information: ZULLY DE returns for follow up and results of the recently performed polysomnography. I explained the pathophysiology behind obstructive sleep apnea. We then spent quite a bit of time discussing different treatment options. For mild obstructive sleep apnea, surgery and oral appliance are alternatives to nasal CPAP therapy but in moderate or severe cases, nasal CPAP is the most effective and reliable treatment. Because apnea is primarily in supine position, then positional management therapy could be effective. Methods discussed such as positioning with pillows, using a T-shirt with tennis balls in the back, and shown commercial products that have a pillow format on back to prevent supine sleep. I reviewed the impact of weight changes on sleep apnea and strongly recommended losing weight. After some discussion, the patient opted to go with the nasal CPAP therapy. Nasal autoCPAP set at 4-15 cmH20 will be ordered with rationale explained. A manual titration study will be ordered if unable to find optimal pressure with office adjustments. I explained how CPAP machine works and what to expect when using the machine. Using CPAP every night in order to get used to it was emphasized. Patient advised to put CPAP mask on before getting into bed so as not to fall asleep without CPAP. To assist acclimation to CPAP use, it could also be used for a short time during day while reading or watching TV. The patient was instructed to call the CPAP supplier to discuss any mechanical problem that may occur. If the mask given is uncomfortable or is difficult to keep on through the night even with adjustment, contact the CPAP supplier as many will replace with another mask style if notified before 30 days. If snoring or perceives is not getting enough air or too much air from the machine, notify this office. AASM patient education PAP tips reviewed and given to patient. Patient does not drink alcohol. Patient was cautioned about risks of drowsy driving until sleepiness symptoms resolve. Sleep Study - Results Type of Sleep Study: Polysomnography Prior sleep studies: No Polysomnography/Home Sleep Study results: IMPRESSION: The quality of the study is good. The patient had slightly reduced sleep efficiency due to frequent awakenings throughout the night. The sleep architecture was abnormal for sleep fragmentation and reduced amount of time spent in REM and slow wave sleep (N3). Respiratory monitoring showed moderate obstructive sleep apneahypopnea (AHI = 21.6) associated with frequent arousals, oxyhemoglobin desaturation and moderate hypoxia (kim oxygen saturation of 74%). The respiratory events occurred more frequently supine sleep (supine AHI = 38.6; nonsupine = 11.24). Snore was loud in intensity. There was moderate periodic leg movement of sleep contributing to the sleep fragmentation. Cardiac rhythm was normal sinus rhythm without significant arrhythmia. No abnormal behavior (parasomnia) observed during the night. CONCLUSIONS and RECOMMENDATIONS: 1. The patient has moderate obstructive sleep apnea-hypopnea. ICD-10 G47.33. Positive airway pressure therapy is indicated. Other types of therapy such as upper airway surgery and oral appliance may be considered depending of clinical findings. A follow up manual CPAP/bi-level titration study is recommended to find the optimal treatment pressure if positive airway pressure therapy is going to be utilized. With BMI of 40.3 Kg/M2, weight loss is also recommended. 2. Periodic leg movement (ICD G47.61), moderate, treatment may be indicated. Clinical correlation advised. Allergies and Home Medications Home medication list reviewed: Yes (no new meds) Review of Systems Review of systems same as previous: Yes (no changes) Physical Exam Heart Rate: 74 O2 Saturation: 98 Height: 5 ft 11 in Weight: 291 lb Body Mass Index: 40.6 BMI Classification: Morbidly Obese Impression and Plan 1. Obstructive Sleep Apnea-Hypopnea Syndrome, moderate, with lowest oxygen saturation of 74%. Obviously this is the cause of the patients symptoms of unrefreshed sleep, and excessive daytime sleepiness. Positive pressure therapy could benefit his overall health and reduce risks of cardiovascular and cerebrovascular adverse events. As mentioned above, the patient will be started on nasal autoCPAP therapy with pressure set at 4-15 cmH2O. A manual titration study will be completed if unable to find optimal treatment pressure with office adjustments. Compliance guidelines also reviewed. A copy of compliance guidelines will be given for reference at check out. Because the apnea is more severe supine, I instructed to avoid sleeping supine using pillow positioning until able to start CPAP use. 2. Periodic limb movement, moderate, that did fragment patients sleep. Periodic limb movement of sleep (PLMS) is characterized by episodes of repetitive limb movements that occur during sleep and usually involve the lower limbs. The etiology is unknown but can be associated with restless leg syndrome (RLS), neuropathy, spinal cord diseases, kidney disease, rheumatological disorders, narcolepsy, obstructive sleep apnea, and REM sleep behavior disorder. Sleep hygiene methods can also improve sleep as well as lifestyle changes such as regular exercise. Patient was advised that further evaluation may be indicated. * Nasal auto CPAP therapy, pressure at 4-15 cm H2O. * Attempt to lose weight. * Avoid alcohol consumption near bedtime. * Avoid supine sleep until using CPAP. * The patient is again cautioned about driving until sleepiness completely resolves. * Return one month after CPAP obtained. I will assess response to therapy and compliance at that time. Counseling Topics: Weight loss health impact Visit Type: In Office Time Spent with Patient (minutes): 20 Provider Statement: I spent 100% of the Face to Face Visit with the patient with greater than 50% spent counseling the patient and coordination of care.
== END 2020-12-06 15:16 | disposition home or self-care (01) ==
LOC: SC 15:15
PROVIDERS: ATTEND Nurse Practitioner Family
DX: G47.33 Obstructive sleep apnea (adult) (pediatric) (principal); G47.61 Periodic limb movement disorder; E66.01 Morbid (severe) obesity due to excess calories; Z68.41 Body mass index [BMI] 40.0-44.9, adult
CPT/HCPCS: 99212; 99213